=== PATIENT | male | born 1965 | race Caucasian/White ===

== ENCOUNTER 2019-04-17 14:08 | Inpatient (IN) | payer OTHER, SELFPAY ==
[2019-04-17 14:10] VITALS: BMI 26.9
--- NOTE | 2019-04-17 14:25 | ED_ITS ---
HPI - General Adult General: Chief complaint: Weakness Stated complaint: N/V/COUGH/FALL Time Seen by Provider: 04/17/19 14:24 History of Present Illness: HPI narrative: 54-year-old male presents emergency room via EMS with complaint is generally not feeling well he says for the last 4 days he just been laying around he is unable to get up other than to go to the bathroom. He said protracted nausea and vomiting. He does admit he is former heavy drinker but is been over a month since he last drank. He has a low-grade fever and a nonproductive cough as well. Associated symptoms: Reports dyspnea, malaise, nausea and vomiting; Deny chest pain or rash Review of Systems Const: Reports: fever, chills, body aches, fatigue and malaise; Denies: change in appetite ENMT: Reports: nasal discharge and nasal congestion; Denies: throat pain or ear pain Card: Reports: shortness of breath on exertion; Denies: chest pain, edema or shortness of breath when lying down Resp: Reports: shortness of breath and non-productive cough; Denies: productive cough GI: Reports: nausea and vomiting; Denies: abdominal pain, vomiting blood, coffee grounds in vomit, diarrhea, constipation, bloating, blood in stool or black tarry stool : Denies: flank pain, painful urination, urinary frequency or urinary urgency Skin/Breast: Denies: rash or itching PFSH ED PFSH: Statuses (acute, chronic, etc) shown below reflect problem list status as previously entered and may not be historically accurate Medical History Alcohol abuse (Acute) Bronchitis (Acute) Colon polyps (Acute) COPD (chronic obstructive pulmonary disease) (Resolved) Diverticulosis (Acute) Pansinusitis (Acute) Surgical History H/O hernia repair (Acute) H/O right knee surgery (Acute) Family History Other Hyperlipidemia Hypertension Denies family history of Cancer Social History Smoking and tobacco status: current some day smoker smokeless tobacco Alcohol intake: current Alcohol type: beer Alcohol use comment: He is drinking 6-7 beers per week trying to cut down his alcohol intake Desire information about alcohol rehabilitation?: Yes Counseling given: Yes Substance/Drug Use: never Lives independently: Yes Housing: House Physical Exam Const: GENERAL APPEARANCE: cooperative, disheveled and ill appearing ORIENTATION/CONSCIOUSNESS: Yes awake, Yes oriented to person, Yes oriented to place and Yes oriented to time HENMT: COMMON NORMALS: normocephalic, head/scalp atraumatic, hearing grossly normal bilaterally, external ears normal, EAC's normal, TM's normal bilaterally, nasal mucous membranes and turbinates normal, moist oral mucous membranes and oropharynx normal HEAD & SCALP: normocephalic and atraumatic NOSE: nasal mucous membranes and turbinates normal EXTERNAL EAR: Yes external ears normal EXTERNAL AUDITORY CANAL: EAC's normal TYMPANIC MEMBRANE: TM's normal bilaterally Eye: COMMON NORMALS: PERRL, EOMs intact bilaterally, conjunctivae normal and no scleral icterus CONJUNCTIVA: Yes conjunctivae normal PUPIL: Yes PERRL Neck/C-Spine: COMMON NORMALS: full ROM, no lymphadenopathy, supple and no JVD Lymph: LYMPHATIC: no lymphadenopathy noted and no lymphedema noted Resp: COMMON NORMALS: normal respiratory effort, no retractions and no use of accessory muscles AUSCULTATION: rhonchi throughout and wheezes throughout Cardio: COMMON NORMALS: no JVD, regular rate, regular rhythm and no murmurs RATE: regular rate RHYTHM: regular rhythm GI: COMMON NORMALS: soft to palpation and no hepatosplenomegaly AUSCULTATION: Yes normoactive bowel sounds PALPATION: Yes soft, No tender, No guarding and Yes no hepatosplenomegaly Extremity: COMMON NORMALS: normal to inspection, normal capillary refill, no clubbing, cyanosis or edema, no calf tenderness and no pedal edema Neuro: SENSORIUM/ORIENTATION: Yes oriented to person, Yes oriented to place and Yes oriented to time Skin: COMMON NORMALS: no rashes or lesions noted GENERAL SKIN EXAM: no rashes or lesions noted Course ED course: CPK is elevated. Patient does have a mild rhabdomyolysis thinks discomfort from laying around we will go ahead and admit discussed Dr. White. Vital Signs: Vital signs: Vital Signs Temperature 98.7 F 04/18/19 12:00 Pulse Rate 88 04/18/19 22:35 Respiratory Rate 18 04/18/19 22:35 Blood Pressure 100/64 04/18/19 22:35 Pulse Oximetry 96 04/18/19 22:35 MDM - General Adult Lab Data: Labs: Lab Results 04/17/19 04/17/19 04/17/19 Range/Units 14:37 14:37 14:37 WBC 9.6 (4.0-10.0) 10^3/ uL RBC 4.68 (4.1-5.3) 10^6/u L Hgb 15.7 (11.7-16.6) g/dL Hct 44.4 (42.0-52.0) % MCV 94.9 H (80-94) fL MCH 33.5 (28.0-34.0) pg MCHC 35.4 (30.0-36.0) g/dL RDW 12.4 (12.1-15.1) % Plt Count 103 L (130-400) 10^3/c mm MPV 10.9 H (7.4-10.4) fL Neut % (Auto) 88.7 % Lymph % (Auto) 3.0 % [place] % (Auto) 7.1 % Eos % (Auto) 0.0 % Baso % (Auto) 0.2 % Neut # (Auto) 8.5 H (1.8-7.7) 10^3/u L Lymph # (Auto) 0.3 L (0.8-4.8) 10^3/u L [place] # (Auto) 0.7 (0.2-0.9) 10^3/u L Eos # (Auto) 0.0 (0.0-0.8) 10^3/u L Baso # (Auto) 0.0 (0.0-0.1) 10^3/u L Nucleated RBC % (a uto) 0 % Nucleated RBCs # 0.0 /100WBC PT 14.20 H (10.5-13.3) SECO NDS INR 1.06 (0.8-1.2) APTT 28.1 (23.9-36.7) SECO NDS Specimen Type Sample Site ABG pH (7.35-7.45) ABG pCO2 (35-45) mmHg ABG pO2 (80.0-100.0) mmH g ABG HCO3 (22-26) mmol/L ABG Base Excess (-2.0-2.0) mmol/ L Maycol Test Hematocrit (42-52) % Hgb O2 Saturation (95-100) % Carboxyhemoglobin (0.4-20.1) %THgb Methemoglobin (0.4-1.5) % Total Hemoglobin (14-18) g/dL O2 Delivery Device FiO2 % Insurance Application Investigator ID Sodium 131 L (136-145) mmol/L Potassium 3.1 L (3.5-5.1) mmol/L Chloride 78 L (98-107) mmol/L Carbon Dioxide 20 L (22-29) mmol/L Anion Gap 36.1 H (5-19) BUN 26 H (6-20) mg/dL Creatinine 1.8 H (0.7-1.2) mg/dL GFR Calculation 39.2 L (90-130) mL/min Glucose 117 H (74-109) mg/dL Calcium 10.0 (8.6-10.0) mg/Dl Phosphorus (2.5-4.5) mg/dL Magnesium 3.3 H (1.7-2.3) mg/dL Total Bilirubin 4.8 H (0.15-1.2) mg/dL AST 142 H (0-40) U/L ALT 139 H (0-41) U/L Alkaline Phosphata se 99 (40-130) IU/L Ammonia (16-60) umol/L Creatine Kinase 748 H* (39-308) U/L Total Protein 6.9 (6.6-8.7) g/dL Albumin 4.2 (3.5-5.2) g/dL Globulin 2.7 (1.3-4.6) g/dL Urine Color (Yellow) Urine Appearance (CLEAR) Urine pH (5-7) Ur Specific Gravit y (1.005-1.030) Urine Protein (Negative) Urine Glucose (UA) (Normal) Urine Ketones (Negative) Urine Occult Blood (Negative) Urine Nitrate (Negative) Urine Bilirubin (NEGATIVE) Urine Urobilinogen (Negative) mg/dL Ur Leukocyte Kalyn ase (Negative) Urine RBC (0-2) /hpf Urine WBC (0-5) /hpf Ur Squamous Epith Cells (0-5) Urine Bacteria (NONE) Hyaline Casts Fine Granular Cast s /lpf Urine Mucus Ethyl Alcohol < 10 (0-10) mg/dL 04/17/19 04/17/19 04/17/19 Range/Units 14:37 14:48 16:55 WBC (4.0-10.0) 10^3/ uL RBC (4.1-5.3) 10^6/u L Hgb (11.7-16.6) g/dL Hct (42.0-52.0) % MCV (80-94) fL MCH (28.0-34.0) pg MCHC (30.0-36.0) g/dL RDW (12.1-15.1) % Plt Count (130-400) 10^3/c mm MPV (7.4-10.4) fL Neut % (Auto) % Lymph % (Auto) % [place] % (Auto) % Eos % (Auto) % Baso % (Auto) % Neut # (Auto) (1.8-7.7) 10^3/u L Lymph # (Auto) (0.8-4.8) 10^3/u L [place] # (Auto) (0.2-0.9) 10^3/u L Eos # (Auto) (0.0-0.8) 10^3/u L Baso # (Auto) (0.0-0.1) 10^3/u L Nucleated RBC % (a uto) % Nucleated RBCs # /100WBC PT (10.5-13.3) SECO NDS INR (0.8-1.2) APTT (23.9-36.7) SECO NDS Specimen Type Arterial Sample Site Radial, left ABG pH 7.47 H (7.35-7.45) ABG pCO2 26.1 L (35-45) mmHg ABG pO2 75.5 L (80.0-100.0) mmH g ABG HCO3 18.9 L (22-26) mmol/L ABG Base Excess -3.1 L (-2.0-2.0) mmol/ L Maycol Test Pos Hematocrit 47.5 (42-52) % Hgb O2 Saturation 94.0 L (95-100) % Carboxyhemoglobin 0.8 (0.4-20.1) %THgb Methemoglobin 0.2 L (0.4-1.5) % Total Hemoglobin 15.5 (14-18) g/dL O2 Delivery Device Room air FiO2 21.0 % Insurance Application Investigator ID ed Sodium (136-145) mmol/L Potassium (3.5-5.1) mmol/L Chloride (98-107) mmol/L Carbon Dioxide (22-29) mmol/L Anion Gap (5-19) BUN (6-20) mg/dL Creatinine (0.7-1.2) mg/dL GFR Calculation (90-130) mL/min Glucose (74-109) mg/dL Calcium (8.6-10.0) mg/Dl Phosphorus 5.3 H (2.5-4.5) mg/dL Magnesium 3.3 H (1.7-2.3) mg/dL Total Bilirubin (0.15-1.2) mg/dL AST (0-40) U/L ALT (0-41) U/L Alkaline Phosphata se (40-130) IU/L Ammonia (16-60) umol/L Creatine Kinase (39-308) U/L Total Protein (6.6-8.7) g/dL Albumin (3.5-5.2) g/dL Globulin (1.3-4.6) g/dL Urine Color Brown (Yellow) Urine Appearance Sl hazy (CLEAR) Urine pH 5 (5-7) Ur Specific Gravit y 1.020 (1.005-1.030) Urine Protein 2+ H (Negative) Urine Glucose (UA) Norm (Normal) Urine Ketones 2+ H (Negative) Urine Occult Blood 3+ H (Negative) Urine Nitrate Negative (Negative) Urine Bilirubin 1+ H (NEGATIVE) Urine Urobilinogen 4 H (Negative) mg/dL Ur Leukocyte Kalyn ase Negative (Negative) Urine RBC 10-15 H (0-2) /hpf Urine WBC 0-4 H (0-5) /hpf Ur Squamous Epith Cells None (0-5) Urine Bacteria 3+ H (NONE) Hyaline Casts 10-15 H Fine Granular Cast s 0-4 H /lpf Urine Mucus 1+ Ethyl Alcohol (0-10) mg/dL 04/17/19 Range/Units 17:00 WBC (4.0-10.0) 10^3/ uL RBC (4.1-5.3) 10^6/u L Hgb (11.7-16.6) g/dL Hct (42.0-52.0) % MCV (80-94) fL MCH (28.0-34.0) pg MCHC (30.0-36.0) g/dL RDW (12.1-15.1) % Plt Count (130-400) 10^3/c mm MPV (7.4-10.4) fL Neut % (Auto) % Lymph % (Auto) % [place] % (Auto) % Eos % (Auto) % Baso % (Auto) % Neut # (Auto) (1.8-7.7) 10^3/u L Lymph # (Auto) (0.8-4.8) 10^3/u L [place] # (Auto) (0.2-0.9) 10^3/u L Eos # (Auto) (0.0-0.8) 10^3/u L Baso # (Auto) (0.0-0.1) 10^3/u L Nucleated RBC % (a uto) % Nucleated RBCs # /100WBC PT (10.5-13.3) SECO NDS INR (0.8-1.2) APTT (23.9-36.7) SECO NDS Specimen Type Sample Site ABG pH (7.35-7.45) ABG pCO2 (35-45) mmHg ABG pO2 (80.0-100.0) mmH g ABG HCO3 (22-26) mmol/L ABG Base Excess (-2.0-2.0) mmol/ L Maycol Test Hematocrit (42-52) % Hgb O2 Saturation (95-100) % Carboxyhemoglobin (0.4-20.1) %THgb Methemoglobin (0.4-1.5) % Total Hemoglobin (14-18) g/dL O2 Delivery Device FiO2 % Insurance Application Investigator ID Sodium (136-145) mmol/L Potassium (3.5-5.1) mmol/L Chloride (98-107) mmol/L Carbon Dioxide (22-29) mmol/L Anion Gap (5-19) BUN (6-20) mg/dL Creatinine (0.7-1.2) mg/dL GFR Calculation (90-130) mL/min Glucose (74-109) mg/dL Calcium (8.6-10.0) mg/Dl Phosphorus (2.5-4.5) mg/dL Magnesium (1.7-2.3) mg/dL Total Bilirubin (0.15-1.2) mg/dL AST (0-40) U/L ALT (0-41) U/L Alkaline Phosphata se (40-130) IU/L Ammonia 58 (16-60) umol/L Creatine Kinase (39-308) U/L Total Protein (6.6-8.7) g/dL Albumin (3.5-5.2) g/dL Globulin (1.3-4.6) g/dL Urine Color (Yellow) Urine Appearance (CLEAR) Urine pH (5-7) Ur Specific Gravit y (1.005-1.030) Urine Protein (Negative) Urine Glucose (UA) (Normal) Urine Ketones (Negative) Urine Occult Blood (Negative) Urine Nitrate (Negative) Urine Bilirubin (NEGATIVE) Urine Urobilinogen (Negative) mg/dL Ur Leukocyte Kalyn ase (Negative) Urine RBC (0-2) /hpf Urine WBC (0-5) /hpf Ur Squamous Epith Cells (0-5) Urine Bacteria (NONE) Hyaline Casts Fine Granular Cast s /lpf Urine Mucus Ethyl Alcohol (0-10) mg/dL Discharge Plan Discharge Patient Disposition: Placed in Observation Admit Provider: Brian Pearce Clinical Impression: Rhabdomyolysis, Nausea & vomiting Condition: Stable Referrals: Og Bal [Family Provider] - Discharge Date/Time: 04/17/19 20:49 Coding Level of Care Code ED Civil Structural Engineer for Chg Fwd Exam Problem Focused
--- NOTE | 2019-04-17 14:27 | XRR_ITS ---
PROCEDURE INFORMATION: Exam: XR Chest, 1 View Exam date and time: 04/17/2019 2:57 PM Age: 54 years old Clinical indication: Other: Congestion; Additional info: Cough TECHNIQUE: Imaging protocol: XR of the chest Views: 1 view. COMPARISON: CR Chest 1 [place] [id number] 02/02/2019 1:18 PM FINDINGS: Lungs: Unremarkable. No consolidation. Pleural space: Unremarkable. No pleural effusion. No pneumothorax. Heart/Mediastinum: Unremarkable. No cardiomegaly. Bones/joints: Unremarkable. XR/XR chest 1V portable [id number] IMPRESSION: No acute findings.
[2019-04-17 14:28] VITALS: BP 88/75; PULSE 121; RESP 18; TEMP 36.8; O2SAT 98
[2019-04-17] MEDS: sodium chloride 0.9% 1,000 ML 999 ML IV ×2 (14:30→16:30)
[2019-04-17 14:34] VITALS: BP 131/77; PULSE 118; RESP 14; TEMP 36.8; O2SAT 98; BMI 26.9
[2019-04-17 14:50] LABS: Basophils % 0.2 %; Hematocrit 44.4 % (42.0-52.0); Hemoglobin 15.7 g/dL (11.7-16.6); Lymphocytes # 0.3 10^3/uL (0.8-4.8); Mean Corpuscular HGB Conc 35.4 g/dL (30.0-36.0); Mean Corpuscular Hemoglobin 33.5 pg (28.0-34.0); Mean Corpuscular Volume 94.9 fL (80-94); Mean Platelet Volume 10.9 fL (7.4-10.4); Monocytes # 0.7 10^3/uL (0.2-0.9); Monocytes % 7.1 %; Neutrophils # 8.5 10^3/uL (1.8-7.7); Neutrophils % 88.7 %; Nucleated Red Blood Cells % 0 %; Platelet Count 103 10^3/cmm (130-400); Red Blood Count 4.68 10^6/uL (4.1-5.3); Red Cell Distribution Width 12.4 % (12.1-15.1); White Blood Count 9.6 10^3/uL (4.0-10.0)
[2019-04-17 14:59] LABS: ABG PCO2 26.1 mmHg (35-45); ABG PH Result 7.47 (7.35-7.45); Arterial Blood Gas Hematocrit 47.5 % (42-52); Base Excess ABG -3.1 mmol/L (-2.0-2.0); Blood Gas Allen Test Pos; Blood Gas Sample Site Radial, left; Blood Gas Sample Type Arterial; Carboxyhemoglobin 0.8 %THgb (0.4-20.1); HCO3 ABG 18.9 mmol/L (22-26); Methemoglobin 0.2 % (0.4-1.5); Oxygen Device ROOM AIR; PO2 ABG 75.5 mmHg (80.0-100.0); Total Hemoglobin 15.5 g/dL (14-18)
[2019-04-17 15:06] LABS: Alanine Aminotransferase 139 U/L (0-41); Albumin Level 4.2 g/dL (3.5-5.2); Alkaline Phosphatase 99 IU/L (40-130); Anion Gap 36.1 (5-19); Aspartate Amino Transferase 142 U/L (0-40); Blood Urea Nitrogen 26 mg/dL (6-20); Carbon Dioxide 20 mmol/L (22-29); Chloride 78 mmol/L (98-107); Globulin 2.7 g/dL (1.3-4.6); Glomerular Filtration Rate 39.2 mL/min (90-130); Glucose 117 mg/dL (74-109); Magnesium 3.3 mg/dL (1.7-2.3); Potassium 3.1 mmol/L (3.5-5.1); Sodium 131 mmol/L (136-145); Total Bilirubin 4.8 mg/dL (0.15-1.2); Total Protein 6.9 g/dL (6.6-8.7)
[2019-04-17] MEDS: ondansetron 2 mg/ML SDV 2 mL 4 MG IVP (15:14)
[2019-04-17] MEDS: D5-NS 0.45% + KCL 20 mEq 20 MEQ/1,000 ML BAG 150 MEQ IV ×2 (15:15→22:19)
[2019-04-17 15:23] LABS: Alcohol Level < 10 mg/dL (0-10); Creatine Phosphokinase 748 U/L (39-308)
[2019-04-17 17:13] LABS: Blood Urine 3+ (Negative); Glucose Urine UA Norm (Normal); Ketones Urine 2+ (Negative); Nitrate Urine Negative (Negative); Protein Urine 2+ (Negative); Urine Appearance SL Hazy (CLEAR); Urine Color Brown (Yellow); pH Urine 5 (5-7)
[2019-04-17 17:14] LABS: Bilirubin Urine 1+ (NEGATIVE); Urobilinogen Urine 4 mg/dL (Negative)
[2019-04-17 17:16] LABS: Add Urine Microscopic? YES; Leukocyte Esterase Urine Negative (Negative)
[2019-04-17 17:27] LABS: Bacteria Urine 3+; Fine Granular Casts Urine 0-4 /lpf; Mucus Urine 1+; WBC Urine 0-4 /hpf (0-5)
[2019-04-17 17:28] LABS: Add Urine Culture? Yes
[2019-04-17 17:38] LABS: INR 1.06 (0.8-1.2); Partial Thromboplastin Time 28.1 SECONDS (23.9-36.7)
[2019-04-17 17:52] LABS: Ammonia 58 umol/L (16-60)
[2019-04-17 18:48] VITALS: BP 128/63; PULSE 110; RESP 14; TEMP 36.7; O2SAT 98
--- NOTE | 2019-04-17 19:31 | P.HP_ITS ---
Providers/Chief Complaint Chief Complaint: RHABDOMYOIYSIS, PROTRUETED N/V History of Present Illness Tomas Noonan is a 54 year old male who carries diagnosis of alcohol abuse, alcohol withdrawal symptoms in the past ( has never been intubated ) came in with chief complaint of intractable nausea vomiting. Patient is stating that his left about 2 months ago and since then he has been having difficulty managing his meals. He has been trying to cut down his alcohol intake, he is d rinking beer 6 to 7 cans/week now, his last can of beer was on Monday. After having beer on Monday he started having nausea and vomiting he has had more than 10 episodes in last 3 to 4 days is not able to keep anything down, he did not notice any fever, diarrhea, chills, abdominal pain. He is feeling very tired and weak, he was spending most of his day in his bed, he did not even get up to hydrate himself with fluids. He called EMS because he was very tired and unable to take care of himself. He also fell in the bathroom when he tripped over and hit his nose in the bathtub. Diagnostics in ER showed normal hemodynamics, patient has mild tremors, he feels anxious, he had electrolyte abnormality, mildly high CPK, low potassium, thrombocytopenia, alcohol level undetectable Hospital service was requested to admit the patient for above-mentioned reasons Review of Systems Const: Reports: chills, body aches, change in appetite, fatigue and malaise Eyes: Denies: change in vision ENMT: Denies: throat pain Card: Denies: chest pain Resp: Denies: shortness of breath GI: Reports: nausea and vomiting; Denies: abdominal pain, vomiting blood or difficulty swallowing : Denies: flank pain Musc: Denies: neck pain Skin/Breast: Reports: dry skin; Denies: rash Neuro: Reports: seizure-like activity and restless legs; Denies: headache Psych: Reports: anxiety and sleeping more; Denies: memory loss, visual hallucinations, auditory hallucinations or tactile hallucinations Endo: Denies: excessive urination Octavio/Lymph: Denies: easy bruising All/Imm: Denies: hives Medications/Allergies Allergies Allergy/AdvReac Type Severity Reaction Status Date / Time No Known Allergies Allergy Verified 04/17/19 14:14 PFSH Acute PFSH: Statuses (acute, chronic, etc) shown below reflect problem list status as previously entered and may not be historically accurate Medical History (Updated 04/17/19 @ 20:57 by Kaylie Riggins MD) Alcohol abuse (Acute) Bronchitis (Acute) Colon polyps (Acute) COPD (chronic obstructive pulmonary disease) (Acute) Diverticulosis (Acute) Pansinusitis (Acute) Surgical History (Updated 04/17/19 @ 19:32 by Kaylie Riggins MD) H/O hernia repair (Acute) H/O right knee surgery (Acute) Family History (Updated 04/17/19 @ 19:33 by Kaylie Riggins MD) Other Hyperlipidemia Hypertension Denies family history of Cancer Social History (Updated 04/17/19 @ 20:50 by Kaylie Riggins MD) Smoking and tobacco status: current some day smoker Alcohol intake: current Alcohol type: beer Alcohol use comment: He is drinking 6-7 beers per week trying to cut down his alcohol intake Desire information about alcohol rehabilitation?: Yes Counseling given: Yes Substance/Drug Use: never Lives independently: Yes Housing: House Vitals/I&O/Wt Last Vital Signs Temp 98.3 F 04/17/19 14:34 Pulse 118 H 04/17/19 14:34 Resp 14 04/17/19 14:34 BP 131/77 04/17/19 14:34 Pulse Ox 98 04/17/19 14:34 Weight last 48 hrs Weight 95.254 kg Weight 95.254 kg Physical Exam Narrative: EXAM NARRATIVE: Young male with unkempt appearance with poor hygiene Hyperemic conjunctiva-with injections bilaterally EOMI, PERRLA Atraumatic normocephalic S1, S2 no signs of murmur heart failure Abdomen soft nontender nondistended bowel sounds present Neurologically he seems very anxious, nonfocal exam, tremors positive, Lungs are clear to auscultation Poor hygiene on skin examination Dehydrated with dry mucous membranes No signs of ischemia gangrene or ulcer on extremities Anxious mood with flat affect Data : 04/17/19 14:37 04/17/19 14:37 A&P Assessment and plan (1) Alcohol abuse: Status: Acute Code(s): F10.10 - Alcohol abuse, uncomplicated (2) Rhabdomyolysis: Status: Acute Code(s): M62.82 - Rhabdomyolysis (3) Nausea & vomiting: Status: Acute Code(s): R11.2 - Nausea with vomiting, unspecified (4) Thrombocytopenia: Status: Acute Code(s): D69.6 - Thrombocytopenia, unspecified (5) Gastritis due to alcohol without hemorrhage: Status: Acute Code(s): K29.20 - Alcoholic gastritis without bleeding Additional A&P Information Intractable nausea vomiting secondary to alcohol induced gastritis He is drinking 6-7 beers a week, currently alcohol level undetectable, he has mild coarse tremors on physical exam He has had alcohol withdrawal symptoms in the past Currently I would start him on CIWA protocol He is a risk of refeeding syndrome We will check magnesium and phosphorus level Continue D5 half-normal saline with potassium supplementation GI cocktail and Protonix Alcohol induced thrombocytopenia Monitor platelet level for now, no active signs of bleeding Mild rhabdomyolysis, I am suspecting myopathy secondary to alcohol intake, will monitor CPK level, currently on IV fluids, Acute kidney injury secondary to dehydration: Anticipating improvement with IV fluid resuscitation Respiratory alkalosis with mild metabolic acidosis Compensated for now Patient will be high risk for intubation because of risk of DTs Poor p.o. intake with inability to care for himself: I am suspecting he is suffering from depression would add escitalopram DVT prophylaxis: Heparin GI prophylaxis: Protonix Full code Attestations Medical Necessity Statement*: Anticipating stay in the hospital more than 2 days currently he is in mild alcohol withdrawal has severe electrolyte abn ormality, TALHA and rhabdomyolysis, Time Spent in Patient Care: (>than 50% of time spent in counselling and/or direct pt care on unit) . 50 Coding Level of Care Code Acute Copy Preparer for Caleb Zhong Diagnoses Alcohol abuse F10.10 Rhabdomyolysis M62.82 Nausea & vomiting R11.2 Thrombocytopenia D69.6 Gastritis due to alcohol without hemorrhage K29.20
[2019-04-17 20:47] VITALS: BP 134/63; PULSE 92; RESP 18; TEMP 36.8; O2SAT 98
[2019-04-17 21:30] LABS: Magnesium 3.3 mg/dL (1.7-2.3); Phosphorus 5.3 mg/dL (2.5-4.5)
[2019-04-17] MEDS: heparin 5,000 unit/mL INJ 1 mL 5000 UNIT SUBCUT (22:17)
[2019-04-17 22:19] LABS: Glucose Point of Care 117 mg/dL (70-110)
[2019-04-17] MEDS: LORazepam 2 mg Tablet PO (22:27)
[2019-04-18] VITALS (63 sets, daily range): BP systolic 76–126; BP diastolic 56–80; PULSE 80–105; RESP 15–22; TEMP 36.8–37.1; O2SAT 86–98
[2019-04-18] MEDS: LORazepam 2 mg Tablet PO (05:20)
[2019-04-18] MEDS: heparin 5,000 unit/mL INJ 1 mL 5000 UNIT SUBCUT ×2 (05:20→12:18)
[2019-04-18 06:00] LABS: Basophils % 0.1 %; Eosinophils # 0.1 10^3/uL (0.0-0.8); Eosinophils % 1.8 %; Hematocrit 36.8 % (42.0-52.0); Hemoglobin 13.4 g/dL (11.7-16.6); Mean Corpuscular HGB Conc 36.4 g/dL (30.0-36.0); Mean Corpuscular Hemoglobin 33.2 pg (28.0-34.0); Mean Corpuscular Volume 91.1 fL (80-94); Monocytes # 0.8 10^3/uL (0.2-0.9); Monocytes % 11.2 %; Neutrophils # 4.8 10^3/uL (1.8-7.7); Neutrophils % 70.9 %; Nucleated Red Blood Cells % 0 %; Platelet Count 96 10^3/cmm (130-400); Red Blood Count 4.04 10^6/uL (4.1-5.3); White Blood Count 6.7 10^3/uL (4.0-10.0)
[2019-04-18 06:21] LABS: Alanine Aminotransferase 116 U/L (0-41); Alkaline Phosphatase 86 IU/L (40-130); Anion Gap 20.2 (5-19); Aspartate Amino Transferase 143 U/L (0-40); Blood Urea Nitrogen 31 mg/dL (6-20); Calcium 9.5 mg/Dl (8.6-10.0); Carbon Dioxide 27 mmol/L (22-29); Chloride 81 mmol/L (98-107); Globulin 2.8 g/dL (1.3-4.6); Glomerular Filtration Rate 57.1 mL/min (90-130); Glucose 112 mg/dL (74-109); Potassium 3.2 mmol/L (3.5-5.1); Sodium 125 mmol/L (136-145); Total Bilirubin 3.1 mg/dL (0.15-1.2); Total Protein 6.8 g/dL (6.6-8.7)
[2019-04-18 06:23] LABS: Creatine Phosphokinase 1245 U/L (39-308)
[2019-04-18 07:01] LABS: Glucose Point of Care 117 mg/dL (70-110)
[2019-04-18] MEDS: LORazepam 2 mg/mL INJ 1 mL 1 MG IVP (08:15)
[2019-04-18] MEDS: escitalopram 10 mg Tablet 20 MG PO (08:15)
[2019-04-18] MEDS: thiamine 100 mg Tablet PO (08:15)
[2019-04-18] MEDS: chlordiazePOXIDE 25 mg Capsule PO (08:15)
[2019-04-18] MEDS: folic acid 1 mg Tablet PO (08:15)
[2019-04-18] MEDS: multivitamin therapeutic Tablet 1 TAB PO (08:15)
[2019-04-18] MEDS: pantoprazole DR 40 mg Tablet PO (08:15)
[2019-04-18] MEDS: sodium chlor 0.9% + KCl 20 mEq 20 MEQ/1,000 ML BAG 150 MEQ IV ×3 (08:17→20:58)
--- NOTE | 2019-04-18 08:42 | PC.NURSE ---
patient confused, hallucinating saying russians are taking our money and that there is money hidden in the table patient was reoriented, he was able to tell me who he was and that the month was march. he is very anxious and has received a prn dose of ativan, Dr. Pearce notified of behaviors, patient placed on one-to-one observation. bed rails padded for seizure precautions and suction equipment available and working properly at this time. Soheila AGUIAR in room with patient
--- NOTE | 2019-04-18 08:52 | PM.PN ---
Subjective Subjective: Interval history: Patient overnight has received 2 mg of oral and 2 mg of IM Ativan. On examination today morning patient seems to be having visual hallucinations, complains of generalized headaches, tremulous complains of nausea but no vomiting complains of dizziness cold sweats. Denies of having any abdominal pain, palpitations. Medications: Medication Review Details: Med rec still needs to be done. Vitals/I&O/Wt Last Vital Signs Temp 98.5 F 04/18/19 07:38 Pulse 100 04/18/19 07:38 Resp 18 04/18/19 07:38 BP 105/71 04/18/19 07:38 Pulse Ox 92 04/18/19 07:38 04/17/19 04/18/19 04/18/19 22:59 06:59 14:59 Intake Total 1240 / 1240 240 / 1480 240 / 240 Output Total 350 / 350 Balance 1240 / 1240 -110 / 1130 240 / 240 Weight last 48 hrs Weight 95.254 kg Weight 95.254 kg Physical Exam Narrative: EXAM NARRATIVE: General: No acute distress, AO x3, tremulous, occasional visual hallucinations HEENT: PERRLA, pupils bilaterally equal and reactive, mildly dilated Chest: Normal vesicular breath sounds, no added sounds, equal good air entry bilaterally CVS: S1-S2 regular, tachycardia, no murmurs, no gallops, no rubs Abdomen: Soft, nontender, no organomegaly, bowel sounds present Neuro: No focal deficits, no facial deformity, AO x3, power 5/5 in all limbs CIWA: More than 15 Data : 04/18/19 05:50 04/18/19 05:50 A&P Assessment and plan (1) Alcohol withdrawal: Status: Acute Code(s): F10.239 - Alcohol dependence with withdrawal, unspecified (2) Rhabdomyolysis: Status: Acute Code(s): M62.82 - Rhabdomyolysis (3) Gastritis due to alcohol without hemorrhage: Status: Acute Code(s): K29.20 - Alcoholic gastritis without bleeding (4) Nausea & vomiting: Status: Acute Code(s): R11.2 - Nausea with vomiting, unspecified (5) Thrombocytopenia: Status: Acute Code(s): D69.6 - Thrombocytopenia, unspecified (6) COPD (chronic obstructive pulmonary disease): Status: Acute Code(s): J44.9 - Chronic obstructive pulmonary disease, unspecified Additional A&P Information Alcohol withdrawal: States he had last drink 4 days ago. Alcohol level on admission is normal. Patient is in alcohol withdrawal right now with CIWA of more than 15. We will change the oral and IM Ativan to 2 mg IV every 2 hours as needed. Most likely will shift patient to the ICU for Precedex drip. Check drug screen on the urine sample from admission. We will check hepatitis panel and HIV given the deranged liver functions. Continue with oral thiamine and folic acid. Sitter at bedside. Intractable nausea vomiting: Most likely secondary to alcohol induced gastritis but will rule out gallbladder pathology given the deranged liver functions. As said above will check hepatitis panel. IV Protonix 40 mg daily. Zofran as needed. CT abdomen without contrast. Continue liquid diet for now. Magnesium and phosphorus levels reviewed for high risk of refeeding syndrome. Rhabdomyolysis: Patient does have bruise on the right side of his chest and shoulder. Complains of generalized myalgias Most likely from alcohol induced tremors and myopathy. We will continue to monitor CPK levels. Continue with normal saline at 150 cc/h. Acute kidney injury: Baseline creatinine seems to be normal. Creatinine on admission 1.8. 1.3 today. Resolving. Most likely from dehydration due to poor oral intake and intractable vomiting. Medications reviewed for nephrotoxic drugs. Continue with IV fluids. Will monitor BMP daily. Alcohol induced thrombocytopenia Monitor platelet level for now, no active signs of bleeding. Hemoglobin seems to be stable. COPD: On examination does have bilateral rhonchi's. Most likely possible aspiration as well. Patient remains afebrile and white count is normal and chest x-ray negative for any infiltrate so will hold off on starting any antibiotics for now. We will start patient on [id number] duo nebs and budesonide twice daily. Depression: Patient started on Lexapro last night. Given that the patient would be on Precedex now will monitor for any change in mentation. Continue on Lexapro for now. Has multiple injuries on the shoulder and chest. Chest x-ray negative for any rib fracture. Complaining of pain in his shoulder will get shoulder x-ray to rule out any fractures or acute injuries. DVT prophylaxis: Heparin GI prophylaxis: Protonix Full code Transfer to ICU for Precedex drip in view of high CIWA score. Attestations Medical Necessity Statement*: Needs controlled hospitalization for management of alcohol withdrawal Time Spent in Patient Care: Greater than 35 minutes Coding Level of Care Code Acute Fourdrinier Machine Operator for Chg Fwd Diagnoses Alcohol withdrawal F10.239 Rhabdomyolysis M62.82 Gastritis due to alcohol without hemorrhage K29.20 Nausea & vomiting R11.2 Thrombocytopenia D69.6 COPD (chronic obstructive pulmonary disease) J44.9
[2019-04-18 11:09] LABS: Glucose Point of Care 100 mg/dL (70-110)
[2019-04-18] MEDS: LORazepam 2 mg/mL INJ 1 mL IVP ×4 (11:11→22:15)
--- NOTE | 2019-04-18 11:14 | XRR_ITS ---
PROCEDURE INFORMATION: Exam: XR Right Shoulder Exam date and time: 04/18/2019 12:00 PM Age: 54 years old Clinical indication: Injury or trauma; Fall; Initial encounter; Blunt trauma (contusions or hematomas; Shoulder; Right; Injury date: Today; Additional info: Post fall TECHNIQUE: Imaging protocol: XR Right shoulder. Views: 1 view. COMPARISON: MRI Shoulder w/o RIGHT* [id number] 02/18/2019 12:23 PM FINDINGS: Bones/joints: No acute bony injury or malalignment in the visualized right shoulder on the single view obtained. Degenerative change. Soft tissues: Rotator cuff repair. XR/XR shoulder RT 1V [id number] IMPRESSION: No acute bony injury or malalignment in the visualized right shoulder on the single view obtained.
--- NOTE | 2019-04-18 12:00 | PC.CHAP ---
Pastoral Care Encounter/Spiritual Assessment Type of Contact [] Declined instructor of spanish visit [] Patient/Family/Request visit [] Outpatient visit [] Follow-up visit [] Physician referral [] Code/Alert [x] Routine visit [] Staff referral [] Actively dying [] Patient sleeping [] Family support [] [] Out of room [] Palliative care [] [] Receiving care in room [] Pre-surgical visit [] Trauma [] Long length of stay [] ICU visit [] Other: Relational/Emotional Strength [] Patient feels connected with others/family/visitors/staff [] Distress [] Loneliness/isolation [] Abandonment Spirituality of Patient [] Person of Dalila [] Attends Congregational of their Dalila [] Believes in Prayer [] Reads Bible or Jehovah'S Witness materials [] There are Spiritual issues to be addressed Security Developer Interventions [] Prayer [] Active listening [] Non-anxious presence [] Spiritual/emotional support [] Crisis/trauma care [] Spiritual counseling [] Bereavement support [] Provided bereavement packet [] Provided Bible/devotional materials [] Provided toy/stuffed animal, coloring book to patient or family member [] Completed spiritual assessment [] Provided Communion [] Anointing/[place] [] Salvation [] Other: Impact on Illness or Injury [] Angry [] Fearful [] Anxious [] Often cries [] Exhaustion [] Unable to work [] Unable to attend gnosticist [] Unable to walk/stand [] Unable to read [] Unable to drive [] Unable to eat/drink [] Unable to sleep [] Unable to be with family [] Other: Summary patient very confused chapllan understand patient going to icu Time spent with patient
--- NOTE | 2019-04-18 13:29 | PC.NURSE ---
report called to stepan yates
--- NOTE | 2019-04-18 15:27 | CTR_ITS ---
PROCEDURE INFORMATION: Exam: CT Abdomen And Pelvis Without Contrast Exam date and time: 04/18/2019 5:31 PM Age: 54 years old Clinical indication: Vomiting; Additional info: Intractable vomiting to R/O gall bladder patho, kidney stones TECHNIQUE: Imaging protocol: Computed tomography of the abdomen and pelvis without contrast. Total DLP: 1827.65 mGy-cm Radiation optimization: All CT scans at this facility use at least one of these dose optimization techniques: automated exposure control; mA and/or kV adjustment per patient size (includes targeted exams where dose is matched to clinical indication); or iterative reconstruction. COMPARISON: No relevant prior studies available. FINDINGS: Lungs: There is subpleural atelectasis of the dependent portions of the lungs. Mediastinum: A large hiatal hernia is present. Liver: There is a diffuse decrease in hepatic parenchymal density, consistent with fatty infiltration. Gallbladder and bile ducts: Normal. No calcified stones. No ductal dilation. Pancreas: Normal. No ductal dilation. Spleen: Normal. No splenomegaly. Adrenals: Normal. No mass. Kidneys and ureters: There is no evidence of hydronephrosis. There is no evidence of renal calcifications. Stomach and bowel: Unremarkable. No obstruction. No mucosal thickening. Appendix: A normal appendix is identified. Intraperitoneal space: Unremarkable. No free air. No significant fluid collection. Vasculature: Unremarkable.No abdominal aortic aneurysm. Lymph nodes: Unremarkable.No enlarged lymph nodes. Bladder: Unremarkable as visualized. Reproductive: The prostate demonstrates mild nonspecific enlargement. The seminal vesicles are normal. The prostate demonstrates nonspecific parenchymal calcifications. Bones/joints: Unremarkable. No acute fracture. Soft tissues: Small fat filled inguinal hernias are noted. There is nonspecific edema along the left buttock/flank that may reflect a soft tissue contusion but there is no hematoma. There is edema of the subcutaneous fat right lower abdominal wall with a few air bubbles suspected to be from subcutaneous injections. CT/CT abdomen pelvis wo con [id number] IMPRESSION: No acute abnormality or inflammatory changes. Incidental findings are noted as above. Radiation Dose CTDIVOL = (mGy): DLP = 1827.65 (mGy-cm)
--- NOTE | 2019-04-18 15:47 | PC.NURSE ---
A person named Rosmery, called to ICU inquiring about pt. SHe stated she was just a friend/or just go ask him what I am to him . Pt unable to communicate at this time. I informed Rosmery that he couldn't answer that at this time. She replied she was taking care of his dogs and she just wanted to know what was going on. I stated due to HIPPA, as she was not family/legally / family I could not say anything further other than please continue to care for his dogs if you can. She stated she would continue to care for his dogs and she w going to go stay at his house.
--- NOTE | 2019-04-18 16:19 | CTR_ITS ---
PROCEDURE INFORMATION: Exam: CT Head Without Contrast Exam date and time: 04/18/2019 5:31 PM Age: 54 years old Clinical indication: Altered mental status/memory loss; Additional info: AMS R/O bleed TECHNIQUE: Imaging protocol: Computed tomography of the head without contrast. Total DLP: 906.13 mGy-cm Radiation optimization: All CT scans at this facility use at least one of these dose optimization techniques: automated exposure control; mA and/or kV adjustment per patient size (includes targeted exams where dose is matched to clinical indication); or iterative reconstruction. COMPARISON: No relevant prior studies available. FINDINGS: Brain: There is a large rounded area of hyperdensity on image 21. This is concerning for large aneurysm measuring 1.5 by 1.2 cm in size near the origin of the right middle cerebral artery. The margins of this aneurysm are fuzzy or ill-defined concerning for early adjacent subarachnoid hemorrhage. No additional aneurysm. No midline shift. No edema or mass effect. There is mild diffuse volume loss. The ventricular size is appropriate. Ventricles: No hydrocephalus. Bones/joints: Unremarkable. No acute fracture. Sinuses: There is mild mucosal thickening in the sinuses. Mastoid air cells: Visualized mastoid air cells are well aerated. Soft tissues: Unremarkable. 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 MRI/MRA is recommended for further evaluation. Radiation Dose CTDIVOL = (mGy): DLP = 906.13 (mGy-cm)
[2019-04-18 16:22] LABS: Anion Gap 17.2 (5-19); Blood Urea Nitrogen 24 mg/dL (6-20); Calcium 8.8 mg/dL (8.5-10.5); Carbon Dioxide 26 mmol/L (22-29); Chloride 86 mmol/L (98-107); Glomerular Filtration Rate 77.3 mL/min (90-130); Glucose 103 mg/dL (74-109); Osmolality Calculated 259 mOsm/kg (285-295); Potassium 3.2 mmol/L (3.5-5.1); Sodium 126 mmol/L (136-145)
[2019-04-18 16:26] LABS: Creatine Phosphokinase 1380 U/L (39-308)
[2019-04-18] MEDS: ipratropium-albuterol 3 mL Neb INHALATION ×2 (16:53→20:29)
[2019-04-18 17:48] LABS: Prolactin 18.17 ng/mL (4.0-15.2)
[2019-04-18 18:25] LABS: Hepatitis A Antibody IgM. Non-Reactive (Nonreactive); Hepatitis B Core IgM Non-Reactive (Nonreactive); Hepatitis B Surface Antigen. Non-Reactive (Nonreactive); Hepatitis C Virus Antibody Non-Reactive (Nonreactive)
[2019-04-18 18:31] LABS: ABG PCO2 38.3 mmHg (35-45); ABG PH Result 7.45 (7.35-7.45); Arterial Blood Gas Hematocrit 35.2 % (42-52); Base Excess ABG 2.8 mmol/L (-2.0-2.0); Blood Gas Allen Test Pos; Blood Gas Sample Site Radial, right; Blood Gas Sample Type Arterial; HCO3 ABG 26.8 mmol/L (22-26); Oxygen Device ROOM AIR; PO2 ABG 67.2 mmHg (80.0-100.0)
--- NOTE | 2019-04-18 18:50 | PC.NURSE ---
Down to CT by bed and laboratory monitor.
--- NOTE | 2019-04-18 19:15 | PC.NURSE ---
Back to unit from CT at this time.
--- NOTE | 2019-04-18 20:22 | PM.TDS ---
Transfer Summary Providers Date of Admission: 04/17/19 21:00 Date of Discharge: 04/18/19 Attending Provider at Admission: Brian Pearce MD Attending Provider at Transfer: Brian Pearce MD Anticipated Date of Transfer: Anticipated date of transfer: 04/18/19 Receiving Facility & Provider: Receiving Provider: [] Receiving facility: [] Diagnoses at Discharge Discharge Diagnosis (1) Middle cerebral artery aneurysm: Status: Acute (2) Alcohol withdrawal: Status: Acute (3) Rhabdomyolysis: Status: Acute (4) Gastritis due to alcohol without hemorrhage: Status: Acute (5) Nausea & vomiting: Status: Acute (6) Thrombocytopenia: Status: Acute (7) COPD (chronic obstructive pulmonary disease): Status: Acute Reason for Visit Reason for Visit: Reason For Visit: RHABDOMYOIYSIS, PROTRUETED N/V Hospital Course Hospital Course: This is a 54-year-old male who came to the emergency department after intractable nausea and vomiting for last 3 to 4 days, he lives alone, he drinks beer 5 to 6 cans/week he is trying to cut down his alcohol intake he used to be a heavy drinker in the past he has a history of alcohol withdrawal symptoms with seizures, he denies any history of RI, stroke, pulmonary embolism or DVT. His last alcoholic drink was on Monday and after that he started having nausea and vomiting, he was feeling very weak lethargic and irritable and was not able to get out of bed to go to the kitchen and hydrate himself or eat properly. He called EMS who brought him to ER for further evaluation. He was admitted to medical floor with [facility] protocol with presumptive diagnosis of alcohol-induced gastritis. Discharge Summary: Patient was admitted for management of alcohol withdrawal symptoms and alcohol induced gastritis, at the time of admission his GCS was 15 he was coherent, he had mild coarse tremors on physical exam and he was admitted to medical floor. When he was evaluated in the morning by day team he was confused was experiencing visual hallucination, he was not able to extend his right arm, hence head CT without contrast was obtained which showed large right middle cerebral artery aneurysm 1.5 cm x 1.2 cm with hyperdense area with concerning findings for subarachnoid hemorrhage or early rupture. I have contacted [facility], did not have a neurosurgeon nutrition intern who could do vascular intervention. I called [facility], and was able to get in touch with Dr. Beckwith right away who accepted the patient to neuro ICU and recommended nimodipine 60 mg, Keppra 1 g, Tranxene Jennifer acid 1 g. I am holding nimodipine for now because his systolic blood pressure is 90/60MMHG, target blood pressure less than 110 mmHg. Physical Exam Narrative: EXAM NARRATIVE: Patient laying in bed with semi-armenta position Blood pressure 96/60, heart rate 80 sinus rhythm, Respiratory rate 16 Temperature 98.7 Patient seems very drowsy with irritable behavior, he is try to get out of bed, is able to follow my commands his GCS at the moment is 13, E3 V4 M6 No cerebellar signs His pupils are reactive to light and they are equal No uvula deviation, no tongue deviation, reflexes equivocal Is able to hold his legs in the air for 5 seconds without any difficulty His heart sounds are regular S1-S2 without any murmur JVD or signs of heart failure Abdomen soft nontender nondistended bowel sounds present Lungs are clear to auscultation with rhonchi bilaterally Skin exam shows multiple bruises and petechiae, right shoulder bruise, multiple bruises at the wiley bilaterally TS Data Data Completed and Pending: Completed Studies During Hospitalization Category Date Time Status CT abdomen pelvis wo con [id number] Rout ine Cat Scan 04/18/19 15:[address] head wo con* 7 0450 Routine Cat Scan 04/18/19 16:19 Completed XR chest 1V perla ble [id number] Urgent Exams 04/17/19 14:27 Completed XR shoulder RT 1V 17220 Routine Exams 04/18/19 11:14 Completed Pending at discharge Category Date Time Status EEG electroenceph alogram Routine Exams 04/18/19 16:32 Ordered Arterial Blood Ga s W/O Coox Routine Lab 04/18/19 20:03 Ordered Complete Blood Co unt w/Auto AM LABS Lab 04/19/19 04:00 Ordered Comprehensive Met abolic Panel AM LA BS Lab 04/19/19 04:00 Ordered Drug Screen, Urin e Routine Lab 04/18/19 15:15 Uncollected HIV 1&2 Antigen & Antibody Routine Lab 04/18/19 15:43 Received Myoglobin Qualita tive Urine Stat Lab 04/17/19 16:55 Received Urine Culture Sta t Lab 04/17/19 16:55 Received MR angio head wo con [id number] Stat MRI 04/18/19 19:38 Ordered Labs from last 24 hours 04/18/19 04/18/19 04/18/19 18:10 15:43 15:43 WBC RBC Hgb Hct MCV MCH MCHC RDW Plt Count MPV Neut % (Auto) Lymph % (Auto) [place] % (Auto) Eos % (Auto) Baso % (Auto) Neut # (Auto) Lymph # (Auto) [place] # (Auto) Eos # (Auto) Baso # (Auto) Nucleated RBC % (a uto) Nucleated RBCs # Specimen Type Arterial Sample Site Radial, right ABG pH 7.45 ABG pCO2 38.3 ABG pO2 67.2 L ABG HCO3 26.8 H ABG Base Excess 2.8 H Maycol Test Pos Hematocrit 35.2 L O2 Delivery Device Room air Hot Die Press Feeder ID gd Sodium 126 L Potassium 3.2 L Chloride 86 L Carbon Dioxide 26 Anion Gap 17.2 BUN 24 H Creatinine 1.0 GFR Calculation 77.3 L Glucose 103 POC Glucose Calculated Osmolal ity 259 L Calcium 8.8 Phosphorus Magnesium Total Bilirubin AST ALT Alkaline Phosphata se Creatine Kinase 1380 H* Total Protein Albumin Globulin Prolactin 18.17 H Hepatitis A IgM Ab Hep Bs Antigen Hep B Core IgM Ab Hepatitis C Antibo dy 04/18/19 04/18/19 04/18/19 15:43 11:00 06:50 WBC RBC Hgb Hct MCV MCH MCHC RDW Plt Count MPV Neut % (Auto) Lymph % (Auto) [place] % (Auto) Eos % (Auto) Baso % (Auto) Neut # (Auto) Lymph # (Auto) [place] # (Auto) Eos # (Auto) Baso # (Auto) Nucleated RBC % (a uto) Nucleated RBCs # Specimen Type Sample Site ABG pH ABG pCO2 ABG pO2 ABG HCO3 ABG Base Excess Maycol Test Hematocrit O2 Delivery Device Hot Die Press Feeder ID Sodium Potassium Chloride Carbon Dioxide Anion Gap BUN Creatinine GFR Calculation Glucose POC Glucose 100 117 Calculated Osmolal ity Calcium Phosphorus Magnesium Total Bilirubin AST ALT Alkaline Phosphata se Creatine Kinase Total Protein Albumin Globulin Prolactin Hepatitis A IgM Ab Non-reactive Hep Bs Antigen Non-reactive Hep B Core IgM Ab Non-reactive Hepatitis C Antibo dy Non-reactive 04/18/19 04/18/19 04/17/19 05:50 05:50 22:14 WBC 6.7 RBC 4.04 L Hgb 13.4 Hct 36.8 L MCV 91.1 MCH 33.2 MCHC 36.4 H RDW 12.0 L Plt Count 96 L MPV 11.0 H Neut % (Auto) 70.9 Lymph % (Auto) 15.0 [place] % (Auto) 11.2 Eos % (Auto) 1.8 Baso % (Auto) 0.1 Neut # (Auto) 4.8 Lymph # (Auto) 1.0 [place] # (Auto) 0.8 Eos # (Auto) 0.1 Baso # (Auto) 0.0 Nucleated RBC % (a uto) 0 Nucleated RBCs # 0.0 Specimen Type Sample Site ABG pH ABG pCO2 ABG pO2 ABG HCO3 ABG Base Excess Maycol Test Hematocrit O2 Delivery Device Hot Die Press Feeder ID Sodium 125 L Potassium 3.2 L Chloride 81 L Carbon Dioxide 27 Anion Gap 20.2 H BUN 31 H Creatinine 1.3 H GFR Calculation 57.1 L Glucose 112 H POC Glucose 117 Calculated Osmolal ity Calcium 9.5 Phosphorus Magnesium Total Bilirubin 3.1 H AST 143 H ALT 116 H Alkaline Phosphata se 86 Creatine Kinase 1245 H* Total Protein 6.8 Albumin 4.0 Globulin 2.8 Prolactin Hepatitis A IgM Ab Hep Bs Antigen Hep B Core IgM Ab Hepatitis C Antibo dy 04/17/19 14:37 WBC RBC Hgb Hct MCV MCH MCHC RDW Plt Count MPV Neut % (Auto) Lymph % (Auto) [place] % (Auto) Eos % (Auto) Baso % (Auto) Neut # (Auto) Lymph # (Auto) [place] # (Auto) Eos # (Auto) Baso # (Auto) Nucleated RBC % (a uto) Nucleated RBCs # Specimen Type Sample Site ABG pH ABG pCO2 ABG pO2 ABG HCO3 ABG Base Excess Maycol Test Hematocrit O2 Delivery Device Hot Die Press Feeder ID Sodium Potassium Chloride Carbon Dioxide Anion Gap BUN Creatinine GFR Calculation Glucose POC Glucose Calculated Osmolal ity Calcium Phosphorus 5.3 H Magnesium 3.3 H Total Bilirubin AST ALT Alkaline Phosphata se Creatine Kinase Total Protein Albumin Globulin Prolactin Hepatitis A IgM Ab Hep Bs Antigen Hep B Core IgM Ab Hepatitis C Antibo dy Addt'l Data from Hospital Stay: [address] [address] [address] Scan Report Signed with Addenda Patient: Tomas Noonan CUnit #: [id number] : 1965Acct#:[id number] Age/Sex: 54 / MADM Date: 04/17/19 Loc: [facility]/Bed: [place] [address]: Brian Pearce MD Ordering Provider/Ordering MD: Brian Pearce MD Date of Service: 04/18/19 Procedure(s): CT head wo con* [id number] Accession Number(s): [id number] Report Number: [id number]/CT head wo con* [id number] THIS REPORT CONTAINS FINDINGS THAT MAY BE CRITICAL TO PATIENT CARE. The findings were verbally communicated via telephone conference with Dr Chauhan at 7:18 PM CLINICAL APPLICATIONS MANAGER on 04/18/2019. The findings were acknowledged and understood. Radiation Dose CTDIVOL = (mGy): DLP = 906.13 (mGy-cm) Addendum Dictated By: Zabrina Echevarria Addendum Signed By: Kiley Echevarria Date/Time:04/18/191920 Addendum Cosigned By: PROCEDURE INFORMATION: Exam: CT Head Without Contrast Exam date and time: 04/18/2019 5:31 PM Age: 54 years old Clinical indication: Altered mental status/memory loss; Additional info: AMS R/O bleed TECHNIQUE: Imaging protocol: Computed tomography of the head without contrast. Total DLP: 906.13 mGy-cm Radiation optimization: All CT scans at this facility use at least one of these dose optimization techniques: automated exposure control; mA and/or kV adjustment per patient size (includes targeted exams where dose is matched to clinical indication); or iterative reconstruction. COMPARISON: No relevant prior studies available. FINDINGS: Brain: There is a large rounded area of hyperdensity on image 21. This is concerning for large aneurysm measuring 1.5 by 1.2 cm in size near the origin of the right middle cerebral artery. The margins of this aneurysm are fuzzy or ill-defined concerning for early adjacent subarachnoid hemorrhage. No additional aneurysm. No midline shift. No edema or mass effect. There is mild diffuse volume loss. The ventricular size is appropriate. Ventricles: No hydrocephalus. Bones/joints: Unremarkable. No acute fracture. Sinuses: There is mild mucosal thickening in the sinuses. Mastoid air cells: Visualized mastoid air cells are well aerated. Soft tissues: Unremarkable. CT/CT head wo con* [id number] IMPRESSION: Rounded hyperdensity in the right lower middle cranial fossa concerning for large aneurysm with ill-defined borders concerning for early rupture and subarachnoid hemorrhage. MRI/MRA [place] [address] XRay Report Signed Patient: Tomas Noonan #: [id number] : 1965Acct#:[id number] Age/Sex: 54 / MADM Date: 04/17/19 Loc: [facility]/Bed: [facility] Attending Dr: Brian Pearce MD Ordering Provider/Ordering MD: Brian Pearce MD Date of Service: 04/18/19 Procedure(s): XR shoulder RT 1V 25047 Accession Number(s): [id number] Report Number: [id number] PROCEDURE INFORMATION: Exam: XR Right Shoulder Exam date and time: 04/18/2019 12:00 PM Age: 54 years old Clinical indication: Injury or trauma; Fall; Initial encounter; Blunt trauma (contusions or hematomas; Shoulder; Right; Injury date: Today; Additional info: Post fall TECHNIQUE: Imaging protocol: XR Right shoulder. Views: 1 view. COMPARISON: MRI Shoulder w/o RIGHT* [id number] 02/18/2019 12:23 PM FINDINGS: Bones/joints: No acute bony injury or malalignment in the visualized right shoulder on the single view obtained. Degenerative change. Soft tissues: Rotator cuff repair. XR/XR shoulder RT 1V 19896 IMPRESSION: No acute bony injury or malalignment in the visualized right shoulder on the single view obtained. [address] [address] [address] Scan Report Signed Patient: Tomas Noonan #: [id number] : 1965Acct#:[id number] Age/Sex: 54 / MADM Date: 04/17/19 Loc: [facility]/Bed: [place] [address]: Brian Pearce MD Ordering Provider/Ordering MD: Brian Pearce MD Date of Service: 04/18/19 Procedure(s): CT abdomen pelvis wo con [id number] Accession Number(s): [id number] Report Number: [id number] PROCEDURE INFORMATION: Exam: CT Abdomen And Pelvis Without Contrast Exam date and time: 04/18/2019 5:31 PM Age: 54 years old Clinical indication: Vomiting; Additional info: Intractable vomiting to R/O gall bladder patho, kidney stones TECHNIQUE: Imaging protocol: Computed tomography of the abdomen and pelvis without contrast. Total DLP: 1827.65 mGy-cm Radiation optimization: All CT scans at this facility use at least one of these dose optimization techniques: automated exposure control; mA and/or kV adjustment per patient size (includes targeted exams where dose is matched to clinical indication); or iterative reconstruction. COMPARISON: No relevant prior studies available. FINDINGS: Lungs: There is subpleural atelectasis of the dependent portions of the lungs. Mediastinum: A large hiatal hernia is present. Liver: There is a diffuse decrease in hepatic parenchymal density, consistent with fatty infiltration. Gallbladder and bile ducts: Normal. No calcified stones. No ductal dilation. Pancreas: Normal. No ductal dilation. Spleen: Normal. No splenomegaly. Adrenals: Normal. No mass. Kidneys and ureters: There is no evidence of hydronephrosis. There is no evidence of renal calcifications. Stomach and bowel: Unremarkable. No obstruction. No mucosal thickening. Appendix: A normal appendix is identified. Intraperitoneal space: Unremarkable. No free air. No significant fluid collection. Vasculature: Unremarkable.No abdominal aortic aneurysm. Lymph nodes: Unremarkable.No enlarged lymph nodes. Bladder: Unremarkable as visualized. Reproductive: The prostate demonstrates mild nonspecific enlargement. The seminal vesicles are normal. The prostate demonstrates nonspecific parenchymal calcifications. Bones/joints: Unremarkable. No acute fracture. Soft tissues: Small fat filled inguinal hernias are noted. There is nonspecific edema along the left buttock/flank that may reflect a soft tissue contusion but there is no hematoma. There is edema of the subcutaneous fat right lower abdominal wall with a few air bubbles suspected to be from subcutaneous injections. CT/CT abdomen pelvis wo con [id number] IMPRESSION: No acute abnormality or inflammatory changes. Incidental findings are noted as above. Vitals: Last Vital Signs Temp 98.7 F 04/18/19 12:00 Pulse 103 H 04/18/19 18:25 Resp 15 04/18/19 18:25 BP 81/65 04/18/19 18:25 Pulse Ox 92 04/18/19 18:25 TS Medications Medications Home Medications Anti-Depressant 04/17/19 [History] omeprazole 20 mg PO DAILY 04/17/19 [History Confirmed 04/17/19] Active Medications Albuterol/Ipratropium (Duoneb) 3 ml INHALATION Q6H.RESPIRATORY CAROLYN Last Admin: 04/18/19 16:53 Dose: 3 ml Documented by: Budesonide (Pulmicort) 0.5 mg INHALATION BID.RESPIRATORY CAROLYN Dexamethasone (Decadron) 4 mg IVP Q6H CAROLYN Escitalopram Oxalate (Lexapro) 20 mg PO DAILY CAROLYN Last Admin: 04/18/19 08:15 Dose: 20 mg Documented by: Folic Acid (Folic Acid) 1 mg PO DAILY CAROLYN Last Admin: 04/18/19 08:15 Dose: 1 mg Documented by: Heparin Sodium (Beef Lung) (Heparin) 5,000 unit SUBCUT Q8H CAROLYN (it was held) ) Last Admin: 04/18/19 12:18 Dose: 5,000 unit Documented by: Potassium Chloride/Sodium Chloride (Sodium Chlor 0.9% + Kcl 20 Meq) 20 meq in 1,000 mls @ 150 mls/hr IV .Q6H40M CAROLYN Last Admin: 04/18/19 16:23 Dose: 150 mls/hr Documented by: Dexmedetomidine HCl 400 mcg/ (Sodium Chloride) 104 mls @ 0 mls/hr IV .Q0M CAROLYN; Protocol Levetiracetam 1,000 mg/ Sodium (Chloride) 110 mls @ 440 mls/hr IV Q12H CAROLYN Tranexamic Acid 1,000 mg/ (Sodium Chloride) 110 mls @ 330 mls/hr IV ONCE ONE Stop: 04/18/19 20:36 Lidocaine HCl (Lidocaine 1%) 0.1 ml INTRADERMA PRN PRN PRN Reason: Anesthetic prior to IV start Lidocaine/Prilocaine (Emla) applic TOPICAL ONCE ONE Stop: 04/18/19 20:18 Lorazepam (Ativan) 2 mg IVP Q2H PRN PRN Reason: ANXIETY Last Admin: 04/18/19 20:20 Dose: 2 mg Documented by: Multivitamins Therapeutic (Multivitamin Tab) 1 tab PO DAILY [facility] Last Admin: 04/18/19 08:15 Dose: 1 tab Documented by: Ondansetron HCl (Zofran) 4 mg IVP Q6H PRN PRN Reason: NAUSEA AND VOMITING Pantoprazole Sodium (Protonix) 40 mg IVP DAILY [facility] Thiamine Mononitrate (Vitamin B-1) 100 mg PO DAILY [facility] Last Admin: 04/18/19 08:15 Dose: 100 mg Documented by: Discharge Plan Discharge Patient Disposition: Xfer Other Condition: Stable Prescriptions: No Action omeprazole 20 mg Tablet,Delayed Release (Dr/Ec) 20 mg PO DAILY RF: 0 Anti-Depressant RF: 0 Discharge Orders: Discharge Order (Routine); Ordered 04/18/19 Ordered By: Kaylie Riggins Referrals: Og Bal [Family Provider] - Transfer Attestations Time Spent in Transfer Care*: critical care time Critical Care Time (min): 50 Status at Transfer: Cognitive status at transfer: mildly impaired cognition, Behavioral status at transfer: cooperative, Functional status at transfer: bed bound Overall status at transfer: patient is not back to baseline Quality Metrics Clinical Quality Measures: During this hospital stay, did patient experience: None Coding Level of Care Code Acute Tin Recovery Worker for Caleb Fwd Diagnoses Middle cerebral artery aneurysm I67.1 Alcohol withdrawal F10.239 Rhabdomyolysis M62.82 Gastritis due to alcohol without hemorrhage K29.20 Nausea & vomiting R11.2 Thrombocytopenia D69.6 COPD (chronic obstructive pulmonary disease) J44.9
[2019-04-18 20:29] LABS: HIV 1 & 2 Antibody Non-Reactive (Non-Reactiv); HIV 1 & 2 Antigen Non-Reactive (Non-Reactiv)
[2019-04-18] MEDS: budesonide 0.5 mg/2 mL Neb INHALATION (20:29)
[2019-04-18] MEDS: dexamethasone 10 mg/mL INJ IVP (20:31)
--- NOTE | 2019-04-18 21:32 | PC.NURSE ---
Report Called to Margarita Banks RN at [facility] at 4135. Bed # received by Argenis Recio RN bed #8932.
[2019-04-18 21:34] LABS: ABG PCO2 36.7 mmHg (35-45); ABG PH Result 7.45 (7.35-7.45); Arterial Blood Gas Hematocrit 35.2 % (42-52); Base Excess ABG 1.7 mmol/L (-2.0-2.0); Blood Gas Allen Test Pos; Blood Gas Sample Site Radial, right; Blood Gas Sample Type Arterial; HCO3 ABG 25.6 mmol/L (22-26); Oxygen Device NC; PO2 ABG 67.2 mmHg (80.0-100.0)
--- NOTE | 2019-04-18 21:48 | PM.EVENT ---
Event Note Event Note: 04/18/2019 1600 Called by RN from ICU around 3 PM stating patient is not responding. At present patient is 0.2 precedex gtt. On exam patient GCS: E1M2V1 but protecting airway. HR: 80 bpm BP 89/62mmhg RR:18/min SPO2: 94% on RA Having few jittery movements of lower limbs. Plan : Stop Precedex Bolus NS [address] head to r/o bleed in view of low Plts EEG for possible seizure. Prolactin Will hold off Keppra for now as not sure if having seizures and possible effect from Ativan and Precedex. Event Notes Attestations Time Spent in Patient Care: Greater than 35 minutes
--- NOTE | 2019-04-18 22:24 | PC.NURSE ---
[facility] stret[facility] transport arrived to take patient to [facility]. Pt left with NS with 20kcl infusing at 150ml and Precedex drip infusing at 0.3mcgPt left with bag of clothing and cell phone. Daughter Mumtaz Noonan was notified by phone.
[2019-04-20 17:21] LABS: Myoglobin Qualitative Urine 4090 mcg/L (<28)
== END 2019-04-18 22:36 | disposition short-term general hospital (02) | DRG 392 ==
LOC: ER 19:57 → MEDSURG 19:59 → ICU 04-18 13:40
PROVIDERS: Internal Medicine; Admitting Provider Student in an Organized Health Care Education/Training Program; Emergency Provider Family Medicine; Family Provider Family Medicine; Visit Provider Student in an Organized Health Care Education/Training Program
DX: K29.20 Alcoholic gastritis without bleeding (principal); M62.82 Rhabdomyolysis; N17.9 Acute kidney failure, unspecified; E87.4 Mixed disorder of acid-base balance; F10.239 Alcohol dependence with withdrawal, unspecified; R40.2413 Glasgow coma scale score 13-15, at hospital admission; J44.9 Chronic obstructive pulmonary disease, unspecified; F17.210 Nicotine dependence, cigarettes, uncomplicated; I67.1 Cerebral aneurysm, nonruptured; E86.0 Dehydration; D69.59 Other secondary thrombocytopenia; F32.9 Major depressive disorder, single episode, unspecified; Z86.010 Personal history of colon polyps
CPT/HCPCS: 12345; 36415; 36416; 36600; 70450; 71045; 73020; 74176; 80048; 80053; 80074; 80307; 81001; 82140; 82550; 82803; 82805; 82962; 83735; 84100; 84146; 85025; 85610; 85730; 87086; 87389; 94640; 96360; 96372; 96374; 96375; 97162; 99282; G0378; J1100; J1644; J1953; J2060; J2405; J3411; J7030; J7626

== ENCOUNTER 2019-09-29 23:46 | Inpatient (IN) | payer OTHER, MEDICARE, SELFPAY ==
[2019-09-29 23:51] VITALS: BP 101/60; PULSE 114; RESP 17; TEMP 36.6; O2SAT 94; BMI 24.3
[2019-09-30] VITALS (15 sets, daily range): BP systolic 94–143; BP diastolic 63–94; PULSE 84–122; RESP 14–18; TEMP 36.8–37.9; O2SAT 79–99
--- NOTE | 2019-09-30 00:30 | ED_ITS ---
Documented by User: MICHELLE Lopez 09/30/19 00:31 HPI - Psych General: Chief Complaint: Psychiatric Symptoms Stated Complaint: fever Time Seen by Provider: 09/30/19 00:23 History of Present Illness: HPI Narrative: Patient states he would like to have some help quit drinking afraid he might going to DTs that he is in 4-6 winkle today for the last 5 to 6 days and not really eating and is been having some nausea not vomiting and would like to have some medication help he denies being suicidal does feel depressed does receive mental health services through the [place] [facility] MD complaint: feels depressed Onset (ago): day(s) Duration: constant Associated symptoms: Deny depression Review of Systems Const: Denies: fever(s), chills or body aches Eyes: Denies: change in vision or blurry vision ENMT: Denies: throat pain or nasal congestion Card: Denies: chest pain or dyspnea on exertion Resp: Denies: dyspnea, productive cough or non-productive cough GI: Reports: abdominal pain and nausea; Denies: vomiting : Denies: difficulty urinating Musc: Denies: extremity pain Skin/Breast: Denies: rash Neuro: Denies: headache(s) Psych: Denies: anxiety or depression Octavio/Lymph: Denies: easy bruising Physical Exam Const: COMMON NORMALS: no acute distress, average body habitus and patient oriented x3 HENMT: COMMON NORMALS: normocephalic HEAD & SCALP: normal to inspection and normocephalic FACE & SINUS: normal facial exam Eye: COMMON NORMALS: conjunctivae normal GENERAL EYE: appearance normal, both eyes and all related structures CONJUNCTIVA: Yes conjunctivae normal Neck/C-Spine: COMMON NORMALS: no JVD Chest: COMMONS NORMALS: normal inspection of the chest Resp: COMMON NORMALS: normal respiratory effort and clear to auscultation bilaterally AUSCULTATION: clear to auscultation bilaterally Cardio: COMMON NORMALS: no JVD, regular rate and regular rhythm RATE: regular rate RHYTHM: regular rhythm GI: AUSCULTATION: Yes normoactive bowel sounds PALPATION: Yes Tenderness to palpation present (GI) Details: LLQ and RLQ Extremity: COMMON NORMALS: normal to inspection and full ROM Neuro: COMMON NORMALS: patient oriented x3 MDM - Psych Lab Data: Labs: Lab Results 09/30/19 09/30/19 09/30/19 Range/Units 00:45 00:45 00:45 WBC 5.1 (4.0-10.0) 10^3/ uL RBC 4.71 (4.1-5.3) 10^6/u L Hgb 16.3 (11.7-16.6) g/dL Hct 44.0 (42.0-52.0) % MCV 93.4 (80-94) fL MCH 34.6 H (28.0-34.0) pg MCHC 37.0 H (30.0-36.0) g/dL RDW 15.4 H (12.1-15.1) % Plt Count 81 L (130-400) 10^3/c mm MPV 9.9 (7.4-10.4) fL Neut % (Auto) 59.2 % Lymph % (Auto) 20.7 % [place] % (Auto) 16.0 % Eos % (Auto) 2.3 % Baso % (Auto) 1.4 % Neut # (Auto) 3.0 (1.8-7.7) 10^3/u L Lymph # (Auto) 1.1 (0.8-4.8) 10^3/u L [place] # (Auto) 0.8 (0.2-0.9) 10^3/u L Eos # (Auto) 0.1 (0.0-0.8) 10^3/u L Baso # (Auto) 0.1 (0.0-0.1) 10^3/u L Nucleated RBC % (a uto) 0 % Nucleated RBCs # 0.0 /100WBC PT (10.5-13.3) SECO NDS INR (0.8-1.2) Sodium 133 L (136-145) mmol/L Potassium 3.2 L (3.5-5.1) mmol/L Chloride 91 L (98-107) mmol/L Carbon Dioxide 25 (22-29) mmol/L Anion Gap 20.2 H (5-19) BUN 1 L (6-20) mg/dL Creatinine 0.6 L (0.7-1.2) mg/dL GFR Calculation 139.4 H (90-130) mL/min Glucose 147 H (65-115) mg/dL Calculated Osmolal ity 274 L (285-295) mOsm/k g Calcium 8.2 L (8.5-10.5) mg/dL Total Bilirubin 5.2 H (0.15-1.2) mg/dL AST 189 H (0-40) U/L ALT 54 H (0-41) U/L Alkaline Phosphata se 191 H (40-130) IU/L Total Protein 6.4 L (6.6-8.7) g/dL Albumin 3.3 L (3.5-5.2) g/dL Globulin 3.1 (1.3-4.6) g/dL Lipase 21 (13-60) U/L Vitamin B12 1455 H (232-1245) pg/mL Acetaminophen (10-30) ug/mL Hepatitis A IgM Ab Non-reactive (Nonreactive) Hep Bs Antigen Non-reactive (Nonreactive) Hep B Core IgM Ab Non-reactive (Nonreactive) Hepatitis C Antibo dy Non-reactive (Nonreactive) 09/30/19 09/30/19 Range/Units 00:45 00:45 WBC (4.0-10.0) 10^3/ uL RBC (4.1-5.3) 10^6/u L Hgb (11.7-16.6) g/dL Hct (42.0-52.0) % MCV (80-94) fL MCH (28.0-34.0) pg MCHC (30.0-36.0) g/dL RDW (12.1-15.1) % Plt Count (130-400) 10^3/c mm MPV (7.4-10.4) fL Neut % (Auto) % Lymph % (Auto) % [place] % (Auto) % Eos % (Auto) % Baso % (Auto) % Neut # (Auto) (1.8-7.7) 10^3/u L Lymph # (Auto) (0.8-4.8) 10^3/u L [place] # (Auto) (0.2-0.9) 10^3/u L Eos # (Auto) (0.0-0.8) 10^3/u L Baso # (Auto) (0.0-0.1) 10^3/u L Nucleated RBC % (a uto) % Nucleated RBCs # /100WBC PT 15.40 H (10.5-13.3) SECO NDS INR 1.18 (0.8-1.2) Sodium (136-145) mmol/L Potassium (3.5-5.1) mmol/L Chloride (98-107) mmol/L Carbon Dioxide (22-29) mmol/L Anion Gap (5-19) BUN (6-20) mg/dL Creatinine (0.7-1.2) mg/dL GFR Calculation (90-130) mL/min Glucose (65-115) mg/dL Calculated Osmolal ity (285-295) mOsm/k g Calcium (8.5-10.5) mg/dL Total Bilirubin (0.15-1.2) mg/dL AST (0-40) U/L ALT (0-41) U/L Alkaline Phosphata se (40-130) IU/L Total Protein (6.6-8.7) g/dL Albumin (3.5-5.2) g/dL Globulin (1.3-4.6) g/dL Lipase (13-60) U/L Vitamin B12 (232-1245) pg/mL Acetaminophen < 5.0 L (10-30) ug/mL Hepatitis A IgM Ab (Nonreactive) Hep Bs Antigen (Nonreactive) Hep B Core IgM Ab (Nonreactive) Hepatitis C Antibo dy (Nonreactive) Discharge Plan Discharge Patient Disposition: Placed in Observation Clinical Impression: Alcohol abuse, Hyperbilirubinemia Alcoholic hepatitis Qualifiers: Ascites presence: unspecified Qualified Code(s): K70.10 - Alcoholic hepatitis without ascites Condition: Stable Coding Level of Care Code ED Fresh Work Inspector for Chg Fwd Exam Comprehensive Documented by User: Melo Guy DO 09/30/19 04:06 HPI - Psych General: Chief Complaint: Psychiatric Symptoms Stated Complaint: fever Time Seen by Provider: 09/30/19 00:23 MDM - Psych MDM Narrative: Medical decision making narrative: This patient was originally seen by MICHELLE Murillo. I have evaluated the patient as well as a 54-year-old male who drinks daily. He presented because he has been vomiting, and associates his vomiting and illness to when he tries to stop drinking. His significant other states that he drinks daily. She has noticed him more lethargic. His white count is 5.1, hemoglobin 16. He has mild hypokalemia. He has significant hyperbilirubinemia of 5.1. He has mild transaminase elevation o therwise. His platelet count is 81. CT shows a distended hydropic gallbladder without wall thickening or bile duct dilatation. Ultrasound confirms no bile duct dilatation. There is no cholecystitis/wall thickening/pericholecystic fluid by ultrasound. There are gallstones present. The possibility remains that he could have recently passed a gallstone. He could also have significant alcoholic liver disease. He will be observed, given fluid. His bilirubin will be watched closely. Lab Data: Labs: Lab Results 09/30/19 09/30/19 09/30/19 Range/Units 00:45 00:45 00:45 WBC 5.1 (4.0-10.0) 10^3/ uL RBC 4.71 (4.1-5.3) 10^6/u L Hgb 16.3 (11.7-16.6) g/dL Hct 44.0 (42.0-52.0) % MCV 93.4 (80-94) fL MCH 34.6 H (28.0-34.0) pg MCHC 37.0 H (30.0-36.0) g/dL RDW 15.4 H (12.1-15.1) % Plt Count 81 L (130-400) 10^3/c mm MPV 9.9 (7.4-10.4) fL Neut % (Auto) 59.2 % Lymph % (Auto) 20.7 % [place] % (Auto) 16.0 % Eos % (Auto) 2.3 % Baso % (Auto) 1.4 % Neut # (Auto) 3.0 (1.8-7.7) 10^3/u L Lymph # (Auto) 1.1 (0.8-4.8) 10^3/u L [place] # (Auto) 0.8 (0.2-0.9) 10^3/u L Eos # (Auto) 0.1 (0.0-0.8) 10^3/u L Baso # (Auto) 0.1 (0.0-0.1) 10^3/u L Nucleated RBC % (a uto) 0 % Nucleated RBCs # 0.0 /100WBC PT (10.5-13.3) SECO NDS INR (0.8-1.2) Sodium 133 L (136-145) mmol/L Potassium 3.2 L (3.5-5.1) mmol/L Chloride 91 L (98-107) mmol/L Carbon Dioxide 25 (22-29) mmol/L Anion Gap 20.2 H (5-19) BUN 1 L (6-20) mg/dL Creatinine 0.6 L (0.7-1.2) mg/dL GFR Calculation 139.4 H (90-130) mL/min Glucose 147 H (65-115) mg/dL Calculated Osmolal ity 274 L (285-295) mOsm/k g Calcium 8.2 L (8.5-10.5) mg/dL Total Bilirubin 5.2 H (0.15-1.2) mg/dL AST 189 H (0-40) U/L ALT 54 H (0-41) U/L Alkaline Phosphata se 191 H (40-130) IU/L Total Protein 6.4 L (6.6-8.7) g/dL Albumin 3.3 L (3.5-5.2) g/dL Globulin 3.1 (1.3-4.6) g/dL Lipase 21 (13-60) U/L Vitamin B12 1455 H (232-1245) pg/mL Acetaminophen (10-30) ug/mL Hepatitis A IgM Ab Non-reactive (Nonreactive) Hep Bs Antigen Non-reactive (Nonreactive) Hep B Core IgM Ab Non-reactive (Nonreactive) Hepatitis C Antibo dy Non-reactive (Nonreactive) 09/30/19 09/30/19 Range/Units 00:45 00:45 WBC (4.0-10.0) 10^3/ uL RBC (4.1-5.3) 10^6/u L Hgb (11.7-16.6) g/dL Hct (42.0-52.0) % MCV (80-94) fL MCH (28.0-34.0) pg MCHC (30.0-36.0) g/dL RDW (12.1-15.1) % Plt Count (130-400) 10^3/c mm MPV (7.4-10.4) fL Neut % (Auto) % Lymph % (Auto) % [place] % (Auto) % Eos % (Auto) % Baso % (Auto) % Neut # (Auto) (1.8-7.7) 10^3/u L Lymph # (Auto) (0.8-4.8) 10^3/u L [place] # (Auto) (0.2-0.9) 10^3/u L Eos # (Auto) (0.0-0.8) 10^3/u L Baso # (Auto) (0.0-0.1) 10^3/u L Nucleated RBC % (a uto) % Nucleated RBCs # /100WBC PT 15.40 H (10.5-13.3) SECO NDS INR 1.18 (0.8-1.2) Sodium (136-145) mmol/L Potassium (3.5-5.1) mmol/L Chloride (98-107) mmol/L Carbon Dioxide (22-29) mmol/L Anion Gap (5-19) BUN (6-20) mg/dL Creatinine (0.7-1.2) mg/dL GFR Calculation (90-130) mL/min Glucose (65-115) mg/dL Calculated Osmolal ity (285-295) mOsm/k g Calcium (8.5-10.5) mg/dL Total Bilirubin (0.15-1.2) mg/dL AST (0-40) U/L ALT (0-41) U/L Alkaline Phosphata se (40-130) IU/L Total Protein (6.6-8.7) g/dL Albumin (3.5-5.2) g/dL Globulin (1.3-4.6) g/dL Lipase (13-60) U/L Vitamin B12 (232-1245) pg/mL Acetaminophen < 5.0 L (10-30) ug/mL Hepatitis A IgM Ab (Nonreactive) Hep Bs Antigen (Nonreactive) Hep B Core IgM Ab (Nonreactive) Hepatitis C Antibo dy (Nonreactive) Discharge Plan Discharge Patient Disposition: Placed in Observation Clinical Impression: Alcohol abuse, Hyperbilirubinemia Alcoholic hepatitis Qualifiers: Ascites presence: unspecified Qualified Code(s): K70.10 - Alcoholic hepatitis without ascites Condition: Stable Coding Level of Care Code ED Fresh Work Inspector for Chg Fwd Exam Comprehensive
[2019-09-30] MEDS: ondansetron 2 mg/ML SDV 2 mL 4 MG IVP ×2 (00:45→21:53)
[2019-09-30] MEDS: sodium chloride 0.9% 1,000 ML 999 ML IV ×2 (00:48→01:53)
[2019-09-30 00:57] LABS: Basophils # 0.1 10^3/uL (0.0-0.1); Basophils % 1.4 %; Eosinophils # 0.1 10^3/uL (0.0-0.8); Eosinophils % 2.3 %; Hemoglobin 16.3 g/dL (11.7-16.6); Lymphocytes # 1.1 10^3/uL (0.8-4.8); Lymphocytes % 20.7 %; Mean Corpuscular Hemoglobin 34.6 pg (28.0-34.0); Mean Corpuscular Volume 93.4 fL (80-94); Mean Platelet Volume 9.9 fL (7.4-10.4); Monocytes # 0.8 10^3/uL (0.2-0.9); Neutrophils % 59.2 %; Nucleated Red Blood Cells % 0 %; Platelet Count 81 10^3/cmm (130-400); Red Blood Count 4.71 10^6/uL (4.1-5.3); Red Cell Distribution Width 15.4 % (12.1-15.1); White Blood Count 5.1 10^3/uL (4.0-10.0)
[2019-09-30 01:18] LABS: Alanine Aminotransferase 54 U/L (0-41); Albumin Level 3.3 g/dL (3.5-5.2); Alkaline Phosphatase 191 IU/L (40-130); Anion Gap 20.2 (5-19); Aspartate Amino Transferase 189 U/L (0-40); Calcium 8.2 mg/dL (8.5-10.5); Carbon Dioxide 25 mmol/L (22-29); Chloride 91 mmol/L (98-107); Creatinine Clr Calc Pharmacy 162.9312; Globulin 3.1 g/dL (1.3-4.6); Glomerular Filtration Rate 139.4 mL/min (90-130); Glucose 147 mg/dL (65-115); Lipase 21 U/L (13-60); Potassium 3.2 mmol/L (3.5-5.1); Sodium 133 mmol/L (136-145); Total Bilirubin 5.2 mg/dL (0.15-1.2); Total Protein 6.4 g/dL (6.6-8.7)
[2019-09-30] MEDS: multivitamin therapeutic Tablet 1 TAB PO ×2 (01:19→08:34)
--- NOTE | 2019-09-30 01:20 | CTR_ITS ---
PROCEDURE INFORMATION: Exam: CT Abdomen And Pelvis With Contrast Exam date and time: 09/30/2019 1:29 AM Age: 54 years old Clinical indication: Abdominal pain; Localized; Right upper quadrant (ruq); Additional info: Abd pain, high bilirubin TECHNIQUE: Imaging protocol: Computed tomography of the abdomen and pelvis with intravenous contrast. Radiation optimization: All CT scans at this facility use at least one of these dose optimization techniques: automated exposure control; mA and/or kV adjustment per patient size (includes targeted exams where dose is matched to clinical indication); or iterative reconstruction. Contrast material: OMNI 300; Contrast volume: 95 ml; Contrast route: INTRAVENOUS (IV); COMPARISON: US gall bladder [id number] 09/30/2019 1:49 AM RADIATION DOSE METRICS: Total DLP (mGy-cm): 1383.96 FINDINGS: Mediastinal space: A partially visualized hyperdensity is seen in the distal esophagus, measuring at least 12 x 5 mm. This could represent pill, however, a foreign body cannot be excluded. Moderate hiatal hernia. Liver: Enlarged, fatty liver. Gallbladder and bile ducts: Hydropic gallbladder with possible cholelithiasis without pericholecystic inflammatory changes. Pancreas: Normal. No ductal dilation. Spleen: No splenomegaly. Adrenals: Normal. No mass. Kidneys and ureters: Duplicated left renal collecting system. Stomach and bowel: No obstruction. No wall thickening. Appendix: Normal appendix. Intraperitoneal space: No free air. No significant fluid collection. Vasculature: No abdominal aortic aneurysm. Lymph nodes: No enlarged lymph nodes. Bladder: Unremarkable as visualized. Reproductive: Unremarkable as visualized. Bones/joints: Unremarkable. No acute fracture. Soft tissues: See Mediastinal space finding. CT/CT abdomen pelvis w con* [id number] IMPRESSION: 1. A partially visualized hyperdensity is seen in the distal esophagus, measuring at least 12 x 5 mm. This could represent pill, however, a foreign body cannot be excluded. Please correlate clinically. 2. Hydropic gallbladder with possible cholelithiasis without pericholecystic inflammatory changes. 3. Enlarged, fatty liver. 4. Moderate hiatal hernia. Radiation Dose CTDIVOL = (mGy): DLP = 1383.96 (mGy-cm)
[2019-09-30 01:24] LABS: Blood Urea Nitrogen 1 mg/dL (6-20); Osmolality Calculated 274 mOsm/kg (285-295)
--- NOTE | 2019-09-30 01:27 | US_ITS ---
WS: [id number] RIGHT UPPER QUADRANT ULTRASOUND HISTORY: abd pain, elevated bili COMPARISON: CT 09/30/2019 Liver: 18.0 cm in length. Mildly enlarged liver with coarsened echotexture. Surface of the liver is s lightly irregular. Changes of mild hepatic steatosis. No bile duct dilatation. Gallbladder: Gallbladder is moderately distended with layering stones. No pericholecystic fluid or ga llbladder wall thickening. CBD: 0.6 cm Pancreas: Tail is obscured. Head and body are negative. Right kidney: 11.7 cm in length. Normal echogenicity with no mass or hydronephrosis. Aorta and IVC: Unremarkable. No ascites. US/US gall bladder [id number] IMPRESSION: 1. Mildly hydropic gallbladder with cholelithiasis. No wall thickening or brittnee cholecystic fluid. 2. No bile duct dilatation. 3. Mild hepatic steatosis and hepatomegaly.
[2019-09-30 01:32] LABS: Vitamin B12 1455 pg/mL (232-1245)
--- NOTE | 2019-09-30 01:40 | PC.NURSE ---
Put on 2 L O2 per MD request after desat while sleeping
[2019-09-30] MEDS: potassium chloride ER 10 mEq Tablet 40 MEQ PO (01:53)
[2019-09-30 01:58] LABS: Acetaminophen < 5.0 ug/mL (10-30)
[2019-09-30 02:13] LABS: INR 1.18 (0.8-1.2)
[2019-09-30 02:17] LABS: Hepatitis A Antibody IgM Non-Reactive (Nonreactive); Hepatitis B Core IgM Non-Reactive (Nonreactive); Hepatitis B Surface Antigen Non-Reactive (Nonreactive); Hepatitis C Virus Antibody Non-Reactive (Nonreactive)
[2019-09-30] MEDS: iohexol 300 mg/mL 100 mL Btl IV (02:36)
--- NOTE | 2019-09-30 03:37 | P.HP_ITS ---
Providers/Chief Complaint Chief Complaint: fever History of Present Illness Angelo Noonan is a 54 year old male who does not carry significant past medical history other than alcohol abuse came in for alcohol intoxication. Patient is stating that his last alcoholic drink was around afternoon and then he does not remember what happened, he states probably his daughter called EMS t o take him to the hospital. Patient is stating that he is going through social stressors, going through divorce, he was supposed to go to [place] to see his biological mother but could not go. Lately for last 2 months he has started drinking heavily. He is drinking 7 to 8, cans of beer every day which are 24 ounces. He had alcohol withdrawal symptoms 5 months ago, he was not admitted or intubat ed. He does not take any medication at home other than albuterol for symptomatic relief. He is denying chest pain, shortness of breath, nausea, vomiting, headache, visual hallucination. Diagnostics in the ER revealed alcoholic hepatitis, I ordered stat blood alcohol level Systolic blood pressure was ranging between 94/65, after getting normal saline bolus his blood pressure improved to 109/78mmhg Hypokalemia, Hepatitis panel negative CT abdomen pelvis did not reveal any CBD dilation, cholelithiasis without cholecystitis, fatty liver, moderate hiatal hernia Review of Systems Const: Denies: fever(s), chills or body aches Eyes: Denies: change in vision ENMT: Denies: throat pain or uvular edema Card: Denies: chest pain Resp: Denies: dyspnea GI: Denies: abdominal pain : Denies: flank pain Musc: Denies: neck pain Skin/Breast: Denies: rash Neuro: Denies: headache(s) Psych: Reports: depression, mood swings, sleeping more and hopelessness; Denies: anxiety or suicidal ideation Endo: Denies: polyuria Octavio/Lymph: Denies: easy bruising All/Imm: Denies: urticaria Medications/Allergies Allergies Allergy/AdvReac Type Severity Reaction Status Date / Time No Known Allergies Allergy Verified 09/30/19 00:32 PFSH Acute PFSH: Medical History (Updated 09/30/19 @ 04:52 by Kaylie Riggins MD) Hiatal hernia Surgical History (Updated 09/30/19 @ 04:52 by Kaylie Riggins MD) H/O knee surgery H/O shoulder surgery History of esophageal hernia repair Family History (Updated 09/30/19 @ 04:52 by Kaylie Riggins MD) Denies family history of Lung disease Hypertension Social History (Updated 09/30/19 @ 04:53 by Kaylie Riggins MD) Smoking and tobacco status: light tobacco smoker cigarettes [ Other cigarette details: 2 to 3 cigarettes a day ] Alcohol intake: current Alcohol type: beer Alcohol use comment: 7 to 8 cans of beer 24 ounces per can Substance/Drug Use: unknown Household members: family Housing: House Vitals/I&O/Wt Last Vital Signs Temp 97.9 F 09/29/19 23:51 Pulse 92 09/30/19 03:16 Resp 16 09/30/19 03:16 BP 94/65 09/30/19 03:16 Pulse Ox 96 09/30/19 03:16 09/29/19 09/29/19 09/30/19 14:59 22:59 06:59 Intake Total 1000 / 1000 Balance 1000 / 1000 Weight last 48 hrs Weight 86.183 kg Physical Exam Narrative: EXAM NARRATIVE: Patient was intoxicated at the time of interview Oriented to time and person but not place, he stated he is in [place] No asterixis Active withdrawal Icterus S1, S2 no tachycardia No sign of heart failure Well-built male Abdomen soft nontender nondistended, no CVA tenderness, negative Vital sign Bowel sound present Lower extremity without any sign of edema gangrene ulcer Drowsy however neurologically nonfocal exam Depressed mood EOMI, PERRLA Data : 09/30/19 00:45 09/30/19 00:45 A&P Assessment and plan (1) Alcoholic hepatitis: Status: Acute Qualifiers: Ascites presence: unspecified Qualified Code(s): K70.10 - Alcoholic hepatitis without ascites (2) Hyperbilirubinemia: Status: Acute (3) Cholelithiasis: Status: Acute (4) Alcohol abuse: Status: Acute Additional A&P Information Alcoholic hepatitis DF score 28, Since it is less than 32 I would not start prednisolone or methylprednisone at this point Consult heavily on alcohol cessation Hepatitis panel negative No signs of CBD dilation Waiting on official report on gallbladder ultrasound Patient is afebrile no signs of cholangitis I believe his symptoms and abnormal transaminases are secondary to alcoholic hepatitis Alcohol intoxication Ordered stat blood alcohol level, CIWA protocol Cholelithiasis without cholecystitis Afebrile, no leukocytosis, no signs of cholangitis, no need of antibiotics at this point, resuscitate with fluids History of hiatal hernia repair No active exacerbation Would use Protonix 40 mg daily Hypokalemia repleted Check magnesium Corrected calcium is normal Full code Regular diet DVT prophylaxis Lovenox Attestations Medical Necessity Statement*: Anticipating discharge in less than 48 hours currently alcohol intoxication need monitoring for alcoholic hepatitis Time Spent in Patient Care: (>than 50% of time spent in counselling and/or direct pt care on unit) . 45-minute Coding Level of Care Code Acute Construction Grip for [facility] Fwd Diagnoses Alcoholic hepatitis K70.10 Ascites presence: unspecified Hyperbilirubinemia E80.6 Cholelithiasis K80.20 Alcohol abuse F10.10
[2019-09-30 04:17] LABS: Alcohol Level 372 mg/dL (0-10)
[2019-09-30] MEDS: enoxaparin 40 mg/0.4 mL Syringe SUBCUT (06:22)
[2019-09-30] MEDS: sodium chloride 0.9% 1,000 ML 100 ML IV ×2 (06:23→17:17)
[2019-09-30 06:35] LABS: Magnesium 1.8 mg/dL (1.7-2.3)
[2019-09-30] MEDS: pantoprazole DR 40 mg Tablet PO (08:34)
[2019-09-30] MEDS: thiamine 100 mg Tablet PO (08:34)
[2019-09-30] MEDS: folic acid 1 mg Tablet PO (08:34)
--- NOTE | 2019-09-30 09:16 | PC.CHAP ---
Pastoral Care Encounter/Spiritual Assessment Type of Contact [] Declined branch service specialist visit [] Patient/Family/Request visit [] Outpatient visit [] Follow-up visit [] Physician referral [] Code/Alert [x] Routine visit [] Staff referral [] Actively dying [] Patient sleeping [] Family support [] [] Out of room [] Palliative care [] [] Receiving care in room [] Pre-surgical visit [] Trauma [] Long length of stay [] ICU visit [] Other: Relational/Emotional Strength [] Patient feels connected with others/family/visitors/staff [] Distress [] Loneliness/isolation [] Abandonment Spirituality of Patient [] Person of Dalila [] Attends Baptist of their Dalila [] Believes in Prayer [] Reads Bible or Confucianist materials [] There are Spiritual issues to be addressed Dog Show Judge Interventions [x] Prayer [x] Active listening [x] Non-anxious presence [x] Spiritual/emotional support [] Crisis/trauma care [] Spiritual counseling [] Bereavement support [] Provided bereavement packet [] Provided Bible/devotional materials [] Provided toy/stuffed animal, coloring book to patient or family member [] Provided Communion [] Anointing/[place] [] Salvation [x] Completed spiritual assessment [] Other: Impact on Illness or Injury [] Angry [] Fearful [] Anxious [] Often cries [] Exhaustion [] Unable to work [] Unable to attend sabianism [] Unable to walk/stand [] Unable to read [] Unable to drive [] Unable to eat/drink [] Unable to sleep [] Unable to be with family [] Patient intubated [] Other: Summary Patient not feeling better. not resting well Time spent with patient 10 min
[2019-09-30] MEDS: LORazepam 2 mg/mL INJ 1 mL IVP ×3 (12:55→21:53)
[2019-09-30] MEDS: folic acid 1 MG, multivitamin inj 10 ML, thiamine 100 MG in sodium chloride 0.9% 1,000 ML 252.8 MG IV (13:01)
[2019-09-30] MEDS: sucralfate 1 gm/10 mL Oral Liq UDC PO ×2 (17:29→21:15)
--- NOTE | 2019-09-30 17:57 | XRR_ITS ---
PROCEDURE INFORMATION: Exam: XR Chest, 1 View Exam date and time: 09/30/2019 8:14 PM Age: 54 years old Clinical indication: Shortness of breath; Additional info: SOB TECHNIQUE: Imaging protocol: XR of the chest Views: 1 view. COMPARISON: No relevant prior studies available. FINDINGS: Lungs: Unremarkable. No consolidation. Pleural space: Unremarkable. No pleural effusion. No pneumothorax. Heart/Mediastinum: Unremarkable. No cardiomegaly. Bones/joints: Unremarkable. XR/XR chest 1V portable [id number] IMPRESSION: No acute findings.
--- NOTE | 2019-09-30 18:02 | PM.PN ---
Subjective Subjective: Interval history: Admitted overnight. H&P noted. He states he is been consuming alcohol for last 2 months because of social stressors. He states he thinks he is been having fever, runny nose, cough getting worse for last 2 weeks. He thinks he has been having fever but has not checked at home. Denies of having any headache. At present he completely is complaining of nausea, dizziness, butterflies in his stomach, jitteriness denies of having any hallucination, feeling of bugs all over his body. Vitals/I&O/Wt Last Vital Signs Temp 100.2 F H 09/30/19 17:00 Pulse 112 H 09/30/19 17:00 Resp 18 09/30/19 17:00 BP 121/84 09/30/19 17:00 Pulse Ox 95 09/30/19 17:00 09/30/19 09/30/19 09/30/19 06:59 14:59 22:59 Intake Total 1999 / 1999 1000 / 1000 Balance 1999 1000 / 1000 Weight last 48 hrs Weight 86.183 kg Physical Exam Narrative: EXAM NARRATIVE: General: No acute distress, AO x3, flushed, CIWA?10 HEENT: PERRLA, pupils bilaterally equal and reactive Chest: Normal vesicular breath sounds, occasional rhonchi, equal good air entry bilaterally CVS: S1-S2 regular, no murmurs, no tachycardia, no gallops, no rubs Abdomen: Soft, Vital's positive, no organomegaly, bowel sounds present Neuro: No focal deficits, no facial deformity, AO x3, power 5/5 in all limbs, jittery Data : 09/30/19 00:45 09/30/19 00:45 A&P Assessment and plan (1) Sepsis: Status: Acute (2) Shortness of breath: Status: Acute (3) Alcoholic hepatitis: Status: Acute Qualifiers: Ascites presence: unspecified Qualified Code(s): K70.10 - Alcoholic hepatitis without ascites (4) Hyperbilirubinemia: Status: Acute (5) Cholelithiasis: Status: Acute (6) Alcohol intoxication: Status: Acute (7) Fever: Status: Acute Additional A&P Information Sepsis secondary to unknown etiology at present: Criteria met with tachycardia, fever. Stat blood cultures, urinalysis, urine culture, chest x-ray, pro-Dave. Start patient on vancomycin and Zosyn both renally dosed. MRCP to rule out cholecystitis. Patient has Vital's positive. Clear liquid diet. Patient is complaining of shortness of breath along with fevers. We will have to rule out COVID-19. Isolation precautions and droplet precautions. Spiriva, Advair. Oxygen supplementation keeping saturation over 92% Chente and as needed. Abnormal transaminases: Most likely alcohol hepatitis given the AST to ALT ratio. Hepatitis panel negative. Abdominal ultrasound consistent with hydropic gallbladder with cholelithiasis. Check MRCP. DF score 28 so we will hold off on my culprit for now. Alcohol intoxication: Ativan as per [facility] protocol. Banana bag followed by normal saline at 100 cc/h. Oral thiamine, folic acid. History of hiatal hernia repair No active exacerbation Would use Protonix 40 mg daily Hypokalemia repleted Corrected calcium is normal Full code Clear liquid diet DVT prophylaxis Lovenox We will switch to inpatient Attestations Medical Necessity Statement*: Alcohol intoxication, sepsis, abnormal transaminase Time Spent in Patient Care: Greater than 35 minutes (>than 50% of time spent in counselling and/or direct pt care on unit). Coding Level of Care Code Acute Stock Control Clerk for g Fwd Diagnoses Sepsis A41.9 Shortness of breath R06.02 Alcoholic hepatitis K70.10 Ascites presence: unspecified Hyperbilirubinemia E80.6 Cholelithiasis K80.20 Alcohol intoxication F10.929 Fever R50.9
[2019-09-30] MEDS: piperacillin-tazobactam 3.375 GM in sodium chloride 0.9% (plus) 50 ML IV (22:25)
[2019-10-01] VITALS (9 sets, daily range): BP systolic 117–142; BP diastolic 68–98; PULSE 56–110; RESP 16–20; TEMP 36.4–37.2; O2SAT 93–98
[2019-10-01] MEDS: ondansetron 2 mg/ML SDV 2 mL 4 MG IVP ×2 (04:23→13:02)
[2019-10-01] MEDS: LORazepam 2 mg/mL INJ 1 mL IVP ×3 (04:24→16:18)
[2019-10-01 04:30] LABS: Basophils # 0.1 10^3/uL (0.0-0.1); Basophils % 1.1 %; Eosinophils # 0.1 10^3/uL (0.0-0.8); Eosinophils % 1.3 %; Hemoglobin 13.2 g/dL (11.7-16.6); Lymphocytes # 0.8 10^3/uL (0.8-4.8); Lymphocytes % 14.9 %; Mean Corpuscular HGB Conc 33.8 g/dL (30.0-36.0); Mean Corpuscular Hemoglobin 33.3 pg (28.0-34.0); Mean Corpuscular Volume 98.5 fL (80-94); Mean Platelet Volume 10.5 fL (7.4-10.4); Monocytes # 0.6 10^3/uL (0.2-0.9); Monocytes % 11.6 %; Neutrophils # 3.7 10^3/uL (1.8-7.7); Neutrophils % 70.7 %; Nucleated Red Blood Cells % 0 %; Platelet Count 82 10^3/cmm (130-400); Red Blood Count 3.96 10^6/uL (4.1-5.3); Red Cell Distribution Width 16.7 % (12.1-15.1); White Blood Count 5.2 10^3/uL (4.0-10.0)
[2019-10-01 05:16] LABS: Alanine Aminotransferase 46 U/L (0-41); Albumin Level 2.7 g/dL (3.5-5.2); Alkaline Phosphatase 158 IU/L (40-130); Aspartate Amino Transferase 188 U/L (0-40); Blood Urea Nitrogen 4 mg/dL (6-20); Calcium 7.6 mg/dL (8.5-10.5); Carbon Dioxide 28 mmol/L (22-29); Chloride 106 mmol/L (98-107); Creatinine Clr Calc Pharmacy 162.9312; Globulin 2.7 g/dL (1.3-4.6); Glomerular Filtration Rate 139.4 mL/min (90-130); Glucose 108 mg/dL (65-115); Osmolality Calculated 286 mOsm/kg (285-295); Sodium 140 mmol/L (136-145); Total Protein 5.4 g/dL (6.6-8.7)
[2019-10-01 05:25] LABS: Total Bilirubin 8.6 mg/dL (0.15-1.2)
[2019-10-01] MEDS: sucralfate 1 gm/10 mL Oral Liq UDC PO ×4 (06:09→21:17)
[2019-10-01] MEDS: sodium chloride 0.9% 1,000 ML 100 ML IV (06:09)
[2019-10-01] MEDS: enoxaparin 40 mg/0.4 mL Syringe SUBCUT (06:10)
--- NOTE | 2019-10-01 07:47 | PC.NURSE ---
nasal pharyngeal sample obtained from patient and transported to the lab.
[2019-10-01] MEDS: multivitamin therapeutic Tablet 1 TAB PO (08:21)
[2019-10-01] MEDS: thiamine 100 mg Tablet PO (08:21)
[2019-10-01] MEDS: folic acid 1 mg Tablet PO (08:21)
[2019-10-01] MEDS: pantoprazole DR 40 mg Tablet PO (08:21)
[2019-10-01 11:03] LABS: Total Bilirubin 8.4 mg/dL (0.15-1.2)
--- NOTE | 2019-10-01 11:24 | PC.NURSE ---
PT OFF UNIT TO MRI
[2019-10-01] MEDS: dextrose 5%-sod chloride 0.45% 1,000 ML 50 ML IV (13:03)
--- NOTE | 2019-10-01 14:48 | P.PN_ITS ---
Subjective Subjective: Interval history: In last 24 hours patient has received 6 mg of IV Ativan. Patient had developed fever in the afternoon yesterday going up to 100.2 Fahrenheit. COVID-19 was requested yesterday but went in earlier today morning. Results not available. Vitals/I&O/Wt Last Vital Signs Temp 98.9 F 10/01/19 07:28 Pulse 91 10/01/19 09:26 Resp 20 H 10/01/19 12:00 BP 142/95 10/01/19 07:28 Pulse Ox 96 10/01/19 09:26 09/30/19 10/01/19 10/01/19 22:59 06:59 14:59 Intake Total 1250 / 1250 1050 / 2300 250 / 250 Output Total 500 / 500 Balance 1250 / 1250 550 / 1800 250 / 250 Weight last 48 hrs Weight 86.183 kg Physical Exam Narrative: EXAM NARRATIVE: General: No acute distress, AO x3, flushed, CIWA?10 HEENT: PERRLA, pupils bilaterally equal and reactive Chest: Normal vesicular breath sounds, occasional rhonchi, equal good air entry bilaterally CVS: S1-S2 regular, no murmurs, no tachycardia, no gallops, no rubs Abdomen: Soft, Vital's positive, no organomegaly, bowel sounds present Neuro: No focal deficits, no facial deformity, AO x3, power 5/5 in all limbs, jittery Data : 10/01/19 03:50 10/01/19 03:50 Micro: Microbiology 09/30/19 18:52 Blood Culture - Preliminary Blood SPECIMEN COLLECTED 09/30/19 18:43 Blood Culture - Preliminary Blood SPECIMEN COLLECTED A&P Assessment and plan (1) Sepsis: Status: Acute (2) Shortness of breath: Status: Acute (3) Alcoholic hepatitis: Status: Acute Qualifiers: Ascites presence: unspecified Qualified Code(s): K70.10 - Alcoholic hepatitis without ascites (4) Hyperbilirubinemia: Status: Acute (5) Cholelithiasis: Status: Acute (6) Alcohol intoxication: Status: Acute (7) Fever: Status: Acute (8) Direct hyperbilirubinemia: Status: Acute Additional A&P Information Sepsis secondary to unknown etiology at present: Criteria met with tachycardia, fever. MRCP results appreciated. Negative for cholecystitis but consistent with hydropic gallbladder with cholelithiasis For now continue with vancomycin and Zosyn at current dose. We will de-escalate antibiotics as per the results of blood cultures. Urinalysis, urine culture, sputum culture, MRSA swab still awaited. Patient has not had any episode of diarrhea. If MRSA swab negative will discontinue vancomycin. COVID-19 results awaited. Continue with isolation precaution. Spiriva, Advair. Oxygen supplementation keeping saturation over 92% Guaifenesin as needed. Abnormal transaminases: Worsening today. INR normal. No stigmata of liver failure. Most likely alcohol hepatitis given the AST to ALT ratio. Elevated direct bilirubin. Results of abdominal ultrasound, MRCP appreciated. Hepatitis panel negative. Check HIV, LDH, GGT, haptoglobin, tick panel. ORVILLE C score?7.4 which puts him at intermediate risk. [place] alcohol hepatitis score is 7 which is less than 9 so most likely will not help with corticosteroids. For now we will continue with supportive treatment with IV hydration, regular diet. We will try to reach out to gastroenterology at [facility] or [facility] for further guidance. Alcohol intoxication: Ativan as per CIWA protocol. D5 NS at 50 cc/h. Continue oral thiamine and folic acid. History of hiatal hernia repair No active exacerbation Would use Protonix 40 mg daily Hypokalemia repleted Corrected calcium is normal Full code Clear liquid diet DVT prophylaxis Lovenox Attestations Medical Necessity Statement*: Acute alcoholic hepatitis, alcohol abuse, sepsis Time Spent in Patient Care: Greater than 35 minutes (>than 50% of time spent in counselling and/or direct pt care on unit) . Coding Level of Care Code Acute Hand Sizer for Caleb Zhong Diagnoses Sepsis A41.9 Shortness of breath R06.02 Alcoholic hepatitis K70.10 Ascites presence: unspecified Hyperbilirubinemia E80.6 Cholelithiasis K80.20 Alcohol intoxication F10.929 Fever R50.9 Direct hyperbilirubinemia E80.6
--- NOTE | 2019-10-01 15:03 | PC.SOCIAL ---
Divorce papers have been dropped off. Nurse indicates patient is not completely alert and oriented therefore not comfortable with these being notarized in hospital. pt is taking mood altering medications. Lucy from Attorneys office has called multiple times. This nurse called Lucy and explained that typically we only notarize documents that pertain to Health Care Directives or Durable Power of Long Line Team[employer]. CM/ SS are not comfortable notarizing personal legal documents such as divorce or financial paperwork. Also we are not comfortable doing so while patient is on medications that might affect thought process. Lucy verbalized understanding and asked when he may be dc'd? This nurse indicates that that date is not known. Was asked to leave paperwork for patient. Paperwork was left.
[2019-10-01 15:18] LABS: Procalcitonin 0.63 ng/mL (0-0.5)
[2019-10-01 15:29] LABS: Gamma Glutamyl Transferase 953 U/L (8-61); Lactate Dehydrogenase 288 U/L (135-225)
[2019-10-01] MEDS: piperacillin-tazobactam 3.375 GM in sodium chloride 0.9% (plus) 50 ML IV (16:18)
--- NOTE | 2019-10-01 17:57 | MR_ITS ---
WS: [id number] MRCP (MAGNETIC RESONANCE CHOLANGIOPANCREATOGRAPHY) HISTORY: abnormal liver number, r/o cholecystitis COMPARISON: CT 09/30/2019. Gallbladder ultrasound 09/30/2019. TECHNIQUE: Multiple sequences are performed to evaluate the intra and extrahepatic ducts. Liver is moderate enlarged measuring 20 cm in length. Changes of diffuse hepatic steatosis. Portal v ein is patent. Common bile duct is never well seen on this examination due to motion. Common bile ashley t is also not dilated on the recent ultrasound or CT evaluation. There is no intrahepatic bile duct d ilatation. Mildly hydropic gallbladder with stones. No wall thickening or adjacent fluid. Transverse diameter of the gallbladder is 4.3 cm. MR/MR MRCP 40465 IMPRESSION: 1. Mildly hydropic gallbladder with cholelithiasis. No evidence for acute chol ecystitis otherwise. 2. Moderate hepatic steatosis and hepatomegaly. 3. Common bile duct is not well visualized on this examination but there is no intrahepatic or extra hepatic duct dilatation.
[2019-10-01 18:47] LABS: Vancomycin Trough 6.6 ug/mL (10-15)
[2019-10-01 20:42] LABS: HIV 1 & 2 Antibody Non-Reactive (Non-Reactiv); HIV 1 & 2 Antigen Non-Reactive (Non-Reactiv)
[2019-10-01 22:02] LABS: Bilirubin Urine 3+ (NEGATIVE); Blood Urine Trace (Negative); Glucose Urine UA Norm (Normal); Ketones Urine Negative (Negative); Nitrate Urine Negative (Negative); Protein Urine Neg (Negative); Urine Appearance Hazy (CLEAR); Urine Color Brown (Yellow); pH Urine 6 (5-7)
[2019-10-01 22:03] LABS: Leukocyte Esterase Urine Negative (Negative); Urobilinogen Urine 2+ mg/dL (Negative)
[2019-10-01 22:07] LABS: Add Urine Culture? No; Bacteria Urine TRACE; RBC Urine 0-4 /hpf (0-2); Squamous Epithelial Cell Urine 0-4 (0-5)
[2019-10-02] VITALS (9 sets, daily range): BP systolic 108–138; BP diastolic 72–88; PULSE 71–112; RESP 16–20; TEMP 37.1–38.8; O2SAT 89–96
[2019-10-02] MEDS: piperacillin-tazobactam 3.375 GM in sodium chloride 0.9% (plus) 50 ML IV ×3 (00:22→18:33)
[2019-10-02] MEDS: ondansetron 2 mg/ML SDV 2 mL 4 MG IVP ×2 (00:28→14:45)
[2019-10-02] MEDS: LORazepam 2 mg/mL INJ 1 mL IVP ×2 (00:28→09:55)
[2019-10-02] MEDS: promethazine 25 mg Tablet PO ×2 (03:23→18:45)
[2019-10-02] MEDS: dextrose 5%-sod chloride 0.45% 1,000 ML 50 ML IV (05:00)
[2019-10-02 08:49] LABS: Coronavirus Lab Test PTC NOT DETECTED
[2019-10-02 09:16] LABS: Alanine Aminotransferase 37 U/L (0-41); Albumin Level 2.8 g/dL (3.5-5.2); Alkaline Phosphatase 130 IU/L (40-130); Anion Gap 12.5 (5-19); Aspartate Amino Transferase 124 U/L (0-40); Blood Urea Nitrogen 4 mg/dL (6-20); Calcium 7.9 mg/dL (8.5-10.5); Carbon Dioxide 27 mmol/L (22-29); Chloride 101 mmol/L (98-107); Creatinine Clr Calc Pharmacy 195.5175; Globulin 2.5 g/dL (1.3-4.6); Glucose 121 mg/dL (65-115); Osmolality Calculated 281 mOsm/kg (285-295); Potassium 3.5 mmol/L (3.5-5.1); Sodium 137 mmol/L (136-145); Total Protein 5.3 g/dL (6.6-8.7)
[2019-10-02] MEDS: enoxaparin 40 mg/0.4 mL Syringe SUBCUT (09:25)
[2019-10-02] MEDS: sucralfate 1 gm/10 mL Oral Liq UDC PO ×4 (09:27→21:03)
[2019-10-02] MEDS: pantoprazole DR 40 mg Tablet PO (09:27)
[2019-10-02] MEDS: thiamine 100 mg Tablet PO (09:27)
[2019-10-02] MEDS: multivitamin therapeutic Tablet 1 TAB PO (09:27)
[2019-10-02] MEDS: folic acid 1 mg Tablet PO (09:27)
[2019-10-02 10:01] LABS: Total Bilirubin 13.5 mg/dL (0.15-1.2)
[2019-10-02] MEDS: guaiFENesin 100 mg/5 mL UDC 10 mL 200 MG PO (11:18)
[2019-10-02 12:50] LABS: Lyme AB Screen <0.90 index
[2019-10-02 13:20] LABS: Basophils # 0.1 10^3/uL (0.0-0.1); Eosinophils # 0.1 10^3/uL (0.0-0.8); Eosinophils % 1.7 %; Hematocrit 38.1 % (42.0-52.0); Lymphocytes # 0.9 10^3/uL (0.8-4.8); Lymphocytes % 14.1 %; Mean Corpuscular HGB Conc 34.1 g/dL (30.0-36.0); Mean Corpuscular Hemoglobin 33.9 pg (28.0-34.0); Mean Corpuscular Volume 99.5 fL (80-94); Mean Platelet Volume 10.1 fL (7.4-10.4); Monocytes # 0.7 10^3/uL (0.2-0.9); Monocytes % 11.1 %; Neutrophils % 71.4 %; Nucleated Red Blood Cells % 0 %; Platelet Count 81 10^3/cmm (130-400); Red Blood Count 3.83 10^6/uL (4.1-5.3); Red Cell Distribution Width 16.1 % (12.1-15.1)
--- NOTE | 2019-10-02 15:45 | PC.RESP ---
Smoking Cessation information and a schedule of classes sent to patient.
[2019-10-02] MEDS: doxycycline 100 mg Tablet PO (18:33)
--- NOTE | 2019-10-02 21:35 | PC.NURSE ---
Nurse called pharmacy per parameters of vancomycin due to vanc trough being too low at 6.6
[2019-10-03] VITALS (11 sets, daily range): BP systolic 95–128; BP diastolic 64–86; PULSE 71–119; RESP 15–25; TEMP 36.9–37.3; O2SAT 91–96
[2019-10-03] MEDS: piperacillin-tazobactam 3.375 GM in sodium chloride 0.9% (plus) 50 ML IV ×3 (00:39→15:32)
[2019-10-03 01:17] LABS: Vancomycin Trough 13.7 ug/mL (10-15)
[2019-10-03] MEDS: ondansetron 2 mg/ML SDV 2 mL 4 MG IVP ×3 (03:54→18:39)
[2019-10-03] MEDS: LORazepam 2 mg/mL INJ 1 mL IVP ×5 (03:57→17:25)
[2019-10-03 05:28] LABS: Basophils % 0.8 %; Eosinophils # 0.1 10^3/uL (0.0-0.8); Eosinophils % 1.9 %; Hematocrit 35.6 % (42.0-52.0); Hemoglobin 12.5 g/dL (11.7-16.6); Lymphocytes # 0.7 10^3/uL (0.8-4.8); Lymphocytes % 12.3 %; Mean Corpuscular HGB Conc 35.1 g/dL (30.0-36.0); Mean Corpuscular Hemoglobin 34.1 pg (28.0-34.0); Mean Platelet Volume 10.5 fL (7.4-10.4); Monocytes # 0.6 10^3/uL (0.2-0.9); Monocytes % 11.2 %; Neutrophils # 3.88 10^3/uL (1.8-7.7); Neutrophils % 73.2 %; Nucleated Red Blood Cells % 0 %; Platelet Count 87 10^3/cmm (130-400); Red Blood Count 3.67 10^6/uL (4.1-5.3); Red Cell Distribution Width 16.1 % (12.1-15.1); White Blood Count 5.3 10^3/uL (4.0-10.0)
[2019-10-03 05:35] LABS: Alanine Aminotransferase 33 U/L (0-41); Albumin Level 2.8 g/dL (3.5-5.2); Alkaline Phosphatase 109 IU/L (40-130); Anion Gap 13.2 (5-19); Aspartate Amino Transferase 92 U/L (0-40); Blood Urea Nitrogen 4 mg/dL (6-20); Calcium 8.2 mg/dL (8.5-10.5); Carbon Dioxide 24 mmol/L (22-29); Chloride 102 mmol/L (98-107); Globulin 2.4 g/dL (1.3-4.6); Glomerular Filtration Rate 222.5 mL/min (90-130); Glucose 126 mg/dL (65-115); Osmolality Calculated 279 mOsm/kg (285-295); Potassium 3.2 mmol/L (3.5-5.1); Sodium 136 mmol/L (136-145); Total Protein 5.2 g/dL (6.6-8.7)
[2019-10-03 05:51] LABS: Total Bilirubin 14.6 mg/dL (0.15-1.2)
[2019-10-03 06:27] LABS: Potassium, Radom Urine 18 mmol/L; Urine Random Chloride 85 mmol/L; Urine Random Sodium 98 mmol/L
[2019-10-03] MEDS: sucralfate 1 gm/10 mL Oral Liq UDC PO ×4 (06:27→21:24)
[2019-10-03] MEDS: enoxaparin 40 mg/0.4 mL Syringe SUBCUT (06:27)
[2019-10-03] MEDS: multivitamin therapeutic Tablet 1 TAB PO (08:51)
[2019-10-03] MEDS: thiamine 100 mg Tablet PO (08:51)
[2019-10-03] MEDS: pantoprazole DR 40 mg Tablet PO (08:51)
[2019-10-03] MEDS: doxycycline 100 mg Tablet PO ×2 (08:51→17:25)
[2019-10-03] MEDS: folic acid 1 mg Tablet PO (08:51)
--- NOTE | 2019-10-03 11:59 | PC.SOCIAL ---
IMM Update Pg 2 of IMM updated with patient who verbalized understanding. Copy provided.
[2019-10-03] MEDS: LORazepam 2 mg Tablet PO (14:03)
[2019-10-03] MEDS: dextrose 5%-sod chloride 0.45% 1,000 ML 50 ML IV (15:41)
--- NOTE | 2019-10-03 18:11 | PM.PN ---
Subjective Subjective: Interval history: No acute evenst overnight. Needing ativan PRN. Continues to spike fever. Going upto 101 F. Agitated this evening inspite of getting Ativan. Vitals/I&O/Wt Last Vital Signs Temp 98.4 F 10/03/19 16:00 Pulse 119 H 10/03/19 16:00 Resp 20 H 10/03/19 16:00 BP 109/76 10/03/19 16:00 Pulse Ox 94 10/03/19 16:00 10/03/19 10/03/19 10/03/19 06:59 14:59 22:59 Intake Total 1162 300 / 300 Output Total 500 / 800 350 / 350 Balance 663 / 1213 -50 / -50 Physical Exam Narrative: EXAM NARRATIVE: GEN: Awake, alert and oriented, restless CVS: S1S@ N RS: CTA B/L except crackles over RUL Abd: Soft, nt/nd , bs+ STATION MANAGER: no focal neuro deficits Data : 10/03/19 04:47 10/03/19 04:47 Micro: Microbiology 10/02/19 13:03 Blood Culture - Preliminary Blood NEGATIVE TO DATE 10/02/19 12:58 Blood Culture - Preliminary Blood NEGATIVE TO DATE 10/01/19 21:40 Gram Stain - Final Sputum - Expectorated Sputum Sputum Culture - Preliminary 10/01/19 19:50 Urine Culture - Preliminary Urine,Voided A&P Assessment and plan (1) Sepsis: Status: Acute (2) Shortness of breath: Status: Acute (3) Alcoholic hepatitis: Status: Acute Qualifiers: Ascites presence: unspecified Qualified Code(s): K70.10 - Alcoholic hepatitis without ascites (4) Hyperbilirubinemia: Status: Acute (5) Cholelithiasis: Status: Acute (6) Alcohol intoxication: Status: Acute (7) Fever: Status: Acute (8) Direct hyperbilirubinemia: Status: Acute Additional A&P Information Sepsis secondary to unknown etiology at present: Criteria met with tachycardia, fever. CT abdomen and MRCP results aprreciated. B/c continues to spike fever and source of fever is not sure so will change Zosyn to imipenem. C/w Vanc and doxy. Bcx remain negative. Will get CT chest abd/pelvis w contrast. CT abdomen on admit concerning for foreign body in esophagus but can not r/o perf and mediastinitis or any collection. Can be b/c of acuet hepatitis but will not be that high ECHO to r/o vegetations though Bcx have remained negative. COVID-19 negative. Stop precautions. Check ESR, CRP, HENRY profile to rule out rheumatological cause of fever. Duoneb Q6h, budosenide BID Oxygen supplementation keeping saturation over 92% Guaifenesin as needed. Abnormal transaminases: Abdominal imaging appreciated. Transaminase improving but bilirubin continue to rise Hepatitis panel, HIV negative. tick panel awaited. ORVILLE C score?7.4 which puts him at intermediate risk. What [place] alcohol hepatitis score is 7 which is less than 9 so most likely will not help with corticosteroids. For now we will continue with supportive treatment with IV hydration, regular diet. Case discussed with dry heat cabinet attendant at. As per him as DF score is less than 32 for now it would be best to continue supportive treatment, alcohol abstinence and does not have any need of steroids. Alcohol intoxication: Ativan as per CIWA protocol. D5 NS at 50 cc/h. Continue oral thiamine and folic acid. Add Zyprexa for agitation. History of hiatal hernia repair No active exacerbation Would use Protonix 40 mg daily Full code Clear liquid diet DVT prophylaxis Lovenox Attestations Medical Necessity Statement*: Alcohol abuse, alcohol withdrawal, unexplained fevers, acute alcohol hepatitis Time Spent in Patient Care: Greater than 35 minutes (>than 50% of time spent in counselling and/or direct pt care on unit). Coding Level of Care Code Acute Back Tacker for [facility] Fwd Diagnoses Sepsis A41.9 Shortness of breath R06.02 Alcoholic hepatitis K70.10 Ascites presence: unspecified Hyperbilirubinemia E80.6 Cholelithiasis K80.20 Alcohol intoxication F10.929 Fever R50.9 Direct hyperbilirubinemia E80.6
[2019-10-03] MEDS: OLANZapine 10 mg VIAL 5 MG IM (18:46)
--- NOTE | 2019-10-03 18:52 | PC.NURSE ---
Patient confused trying to get out of bed, skin hot to touch checked temp 101.5, Dr Guzman notified, see new orders
[2019-10-03] MEDS: OLANZapine 5 mg ODT 2.5 MG PO (21:20)
[2019-10-03 21:23] LABS: C Reactive Protein 46.9 mg/L (0.0-4.9)
[2019-10-03 23:29] LABS: Vancomycin Trough 12.5 ug/mL (10-15)
[2019-10-03 23:53] LABS: Erythrocyte Sedimentation Rate 20 mm/hr (0-10)
[2019-10-04] VITALS (9 sets, daily range): BP systolic 101–121; BP diastolic 67–82; PULSE 59–109; RESP 16–20; TEMP 37.2–38.1; O2SAT 94–97
[2019-10-04 05:05] LABS: Basophils # 0.1 10^3/uL (0.0-0.1); Basophils % 0.9 %; Eosinophils # 0.1 10^3/uL (0.0-0.8); Eosinophils % 1.5 %; Hematocrit 36.9 % (42.0-52.0); Hemoglobin 12.8 g/dL (11.7-16.6); Lymphocytes # 0.9 10^3/uL (0.8-4.8); Mean Corpuscular HGB Conc 34.7 g/dL (30.0-36.0); Mean Corpuscular Hemoglobin 34.2 pg (28.0-34.0); Mean Corpuscular Volume 98.7 fL (80-94); Mean Platelet Volume 10.8 fL (7.4-10.4); Monocytes # 0.9 10^3/uL (0.2-0.9); Monocytes % 13.3 %; Neutrophils # 4.63 10^3/uL (1.8-7.7); Neutrophils % 69.7 %; Nucleated Red Blood Cells % 0 %; Platelet Count 96 10^3/cmm (130-400); Red Blood Count 3.74 10^6/uL (4.1-5.3); Red Cell Distribution Width 16.4 % (12.1-15.1); White Blood Count 6.6 10^3/uL (4.0-10.0)
[2019-10-04 05:30] LABS: Alanine Aminotransferase 30 U/L (0-41); Albumin Level 2.7 g/dL (3.5-5.2); Alkaline Phosphatase 99 IU/L (40-130); Anion Gap 12.4 (5-19); Aspartate Amino Transferase 77 U/L (0-40); Blood Urea Nitrogen 6 mg/dL (6-20); Calcium 7.9 mg/dL (8.5-10.5); Carbon Dioxide 27 mmol/L (22-29); Chloride 104 mmol/L (98-107); Glomerular Filtration Rate 116.7 mL/min (90-130); Glucose 91 mg/dL (65-115); Osmolality Calculated 285 mOsm/kg (285-295); Potassium 3.4 mmol/L (3.5-5.1); Sodium 140 mmol/L (136-145); Total Protein 4.7 g/dL (6.6-8.7)
[2019-10-04 05:31] LABS: Total Bilirubin 16.5 mg/dL (0.15-1.2)
[2019-10-04 05:41] LABS: Procalcitonin 1.65 ng/mL (0-0.5)
[2019-10-04] MEDS: dextrose 5%-sod chloride 0.45% 1,000 ML 50 ML IV (06:03)
[2019-10-04] MEDS: sucralfate 1 gm/10 mL Oral Liq UDC PO ×4 (06:08→20:52)
--- NOTE | 2019-10-04 07:00 | CT_ITS ---
WS: [id number] CTA CHEST WITH CT ABDOMEN AND PELVIS. HISTORY: Unexplained fevers. Jaundice. TECHNIQUE: CT angiogram is performed through the chest. Additional imaging is performed through the a bdomen and pelvis with IV contrast. Sagittal and coronal reformats have been submitted. MIP imaging also reviewed. All CT scans at [facility] use at least one of these dose optimization tech niques: automated exposure control; mA and/or kV adjustment per patient size (includes targeted exams where dose is matched to clinical indication); or iterative reconstruction. Contrast: Omnipaque 350; 95 cc IV. DLP: 3892.52 mGy.cm COMPARISON: 09/30/2019. Chest CTA: Normal pulmonary artery. There are no emboli identified. Atherosclerosis of aorta is mild. No aneurysm. Normal size heart. Mild hyperexpansion of the lungs. Small bilateral pleural effusions, slightly greater on the RIGHT with atelectasis. No pneumonia. No mediastinal or hilar adenopathy. Mi ld anterior wedging of T7 and T11. Abdomen CT: Moderate to severe hepatomegaly and hepatic steatosis. No bile duct dilatation. Portal ve in is patent. Mildly hydropic gallbladder measuring 4.5 cm transversely. Diffuse pericholecystic flui d. Patient has known stones. Not a lot of inflammation surrounding the gallbladder but there is edema . Common bile duct is normal size. Spleen is negative. Pancreas is normal. Normal adrenal glands. Ath erosclerosis aorta. No adenopathy. Moderate size hiatal hernia. Small amount of edema along the perirenal fascia and along the RIGHT par acolic gutter. No GI tract obstruction. Appendix is normal. No acute inflammatory process. Pelvic CT: There is a small amount of free fluid in the pelvis. Patel catheter is present. CT/CT angio chest w abd pel w con IMPRESSION: 1. Moderately severe hepatomegaly and hepatic steatosis. 2. No bile duct dilatation. 3. Minimally hydropic gallbladder with diffuse gallbladder wall edema. There i s not a lot of adjacent stranding in the soft tissue. Patient has known choleli thiasis. Consider cholecystitis and hepatocellular disease/acute hepatitis as p ossible etiologies. 4. Normal appendix. 5. Small bilateral pleural effusions, RIGHT greater than LEFT. 6. No pulmonary embolism. 7. Small amount of free fluid in the pelvis.
[2019-10-04] MEDS: LORazepam 2 mg/mL INJ 1 mL IVP ×5 (07:55→18:31)
[2019-10-04] MEDS: iohexol 350 mg/mL 100 mL Btl IV ×2 (08:28)
[2019-10-04] MEDS: enoxaparin 40 mg/0.4 mL Syringe SUBCUT (09:01)
[2019-10-04] MEDS: pantoprazole DR 40 mg Tablet PO (09:02)
[2019-10-04] MEDS: folic acid 1 mg Tablet PO (09:02)
[2019-10-04] MEDS: multivitamin therapeutic Tablet 1 TAB PO (09:02)
[2019-10-04] MEDS: thiamine 100 mg Tablet PO (09:02)
[2019-10-04] MEDS: doxycycline 100 mg Tablet PO ×2 (09:02→17:41)
--- NOTE | 2019-10-04 10:25 | P.CONIM_ITS ---
Providers/Reason For Consult Consulting Physican/Specialty*: Nagi Rudd MD Reason for Consult*: Cholelithiasis Attending Physician: Robyn Alejandro MD Primary Care Provider: DOCTOR NOT ON FILE History of Present Illness History of Present Illness Chief Complaint: Shortness of breath and fever History of present illness: Mr. Angelo Noonan is a 54 year old male presented to the hospital with worsening respiratory symptoms and he was concerned that he had COVID-19, patien t was admitted to the hospitalist service for further evaluation and work-up, patient is well-known that he has been drinking heavily 7 to 8, cans of beer every day which are 24 ounces. Further evaluation took place and patient undergone different imaging studies that showed hepatopathy likely related to his heavy alcohol ingestion and an incidental finding showed gallbladder stones, patient has been having elevated LFTs and clinically has been jaundiced. Different studies were done and showed no evidence of obstructive jaundice yet on a recent CT scan that was done today there was a concern about gallbladder wall edema and hospitalist consulted surgery for further evaluation and potential management. 09/30/[address] scan of the abdomen and pelvis: IMPRESSION: 1. A partially visualized hyperdensity is seen in the distal esophagus, measuring at least 12 x 5 mm. This could represent pill, however, a foreign body cannot be excluded. Please correlate clinically. 2. Hydropic gallbladder with possible cholelithiasis without pericholecystic inflammatory changes. 3. Enlarged, fatty liver. 4. Moderate hiatal hernia. U/S GB 09/30/19 1. Mildly hydropic gallbladder with cholelithiasis. No wall thickening or pericholecystic fluid. 2. No bile duct dilatation. 3. Mild hepatic steatosis and hepatomegaly. 10/01/19 1. Mildly hydropic gallbladder with cholelithiasis. No evidence for acute cholecystitis otherwise. 2. Moderate hepatic steatosis and hepatomegaly. 3. Common bile duct is not well visualized on this examination but there is no intrahepatic or extra hepatic duct dilatation. 10/04/19 IMPRESSION: 1. Moderately severe hepatomegaly and hepatic steatosis. 2. No bile duct dilatation. 3. Minimally hydropic gallbladder with diffuse gallbladder wall edema. There is not a lot of adjacent stranding in the soft tissue. Patient has known cholelithiasis. Consider cholecystitis and hepatocellular disease/acute hepatitis as possible etiologies. 4. Normal appendix. 5. Small bilateral pleural effusions, RIGHT greater than LEFT. 6. No pulmonary embolism. 7. Small amount of free fluid in the pelvis. Review of Systems 2 General: Reports: 10 or more systems reviewed and unremarkable except in HPI and below Meds/Allergies Home Medications and Allergies Allergies Allergy/AdvReac Type Severity Reaction Status Date / Time No Known Allergies Allergy Verified 10/04/19 11:55 Current Medications Current Medications Generic Name Dose Route Start Last Admin Trade Name Freq PRN Reason Stop Dose Admin Doxycycline Monohydrate 100 mg 10/02/19 18:00 10/04/19 09:02 Vibramycin PO 100 mg BID CAROLYN Administration Protocol Enoxaparin Sodium 40 mg 09/30/19 07:00 10/04/19 09:01 Lovenox SUBCUT 40 mg Q24H CAROLYN Administration Folic Acid 1 mg 09/30/19 09:00 10/04/19 09:02 Folic Acid PO 1 mg DAILY CAROLYN Administration Guaifenesin 200 mg 09/30/19 17:57 10/02/19 11:18 Robitussin Oral Liq PO 200 mg Q4H PRN Administration COUGH AND CONGESTION Dextrose/Sodium Chloride 1,000 mls @ 50 mls/hr 10/01/19 10:45 10/04/19 06:03 Dextrose 5%-Sod Chloride 0.45% IV 50 mls/hr .Q20H CAROLYN Administration Vancomycin HCl 1,500 mg/ 250 mls @ 250 mls/hr 10/01/19 20:00 10/04/19 06:29 Sodium Chloride IV 250 mls/hr Q8H CAROLYN Administration Imipenem/Cilastatin Sodium 500 100 mls @ 200 mls/hr 10/03/19 18:30 10/04/19 06:03 mg/ Sodium Chloride IV 200 mls/hr Q6H CAROLYN Administration Protocol Lorazepam 2 mg 09/30/19 12:00 10/03/19 14:03 Ativan PO 2 mg Q4H PRN Administration WITHDRAWAL Protocol Lorazepam 2 mg 09/30/19 18:02 10/04/19 07:55 Ativan IVP 2 mg Q2H PRN Administration ANXIETY Multivitamins Therapeutic 1 tab 09/30/19 09:00 10/04/19 09:02 Multivitamin Tab PO 1 tab DAILY CAROLYN Administration Olanzapine 2.5 mg 10/03/19 21:00 10/03/19 21:20 Zyprexa Zydis PO 2.5 mg BEDTIME CAROLYN Administration Ondansetron HCl 4 mg 09/30/19 21:24 10/03/19 18:39 Zofran IVP 4 mg Q8H PRN Administration NAUSEA AND VOMITING Pantoprazole Sodium 40 mg 09/30/19 09:00 10/04/19 09:02 Protonix PO 40 mg DAILY CAROLYN Administration Promethazine HCl 25 mg 09/30/19 21:24 10/02/19 18:45 Phenergan PO 25 mg Q6H PRN Administration persistent nausea Fluticasone/Salmeterol 1 puff 09/30/19 20:00 10/04/19 09:41 Advair Diskus 100-50 INHALATION 1 puff BID.RESPIRATORY CAROLYN Administration Sucralfate 1 gm 09/30/19 17:00 10/04/19 06:08 Carafate Oral Liq PO 1 gm AC&BEDTIME CAROLYN Administration Thiamine Mononitrate 100 mg 09/30/19 09:00 10/04/19 09:02 Vitamin B-1 PO 100 mg DAILY CAROLYN Administration Tiotropium [place] 18 mcg 10/01/19 08:00 10/04/19 09:41 Spiriva INHALATION 1 puff DAILY.RESPIRATORY CAROLYN Administration PFSH Acute PFSH: Medical History Alcohol abuse Hiatal hernia Surgical History H/O knee surgery H/O shoulder surgery History of esophageal hernia repair Family History Denies family history of Lung disease Hypertension Social History Smoking and tobacco status: light tobacco smoker cigarettes [ Other cigarette details: 2 to 3 cigarettes a day ] Alcohol intake: current Alcohol type: beer Alcohol use comment: 7 to 8 cans of beer 24 ounces per can Substance/Drug Use: unknown Household members: family Housing: House Vitals/I&O/Wt Last Vital Signs Temp 99.8 F H 10/04/19 08:00 Pulse 101 H 10/04/19 09:47 Resp 16 10/04/19 09:46 BP 121/82 10/04/19 08:00 Pulse Ox 95 10/04/19 09:46 10/03/19 10/04/19 10/04/19 22:59 06:59 14:59 Intake Total 480 / 780 1228.333 / 2008.333 240 / 240 Output Total 600 / 950 480 / 1430 Balance -120 / -170 748.333 / 578.333 240 / 240 Physical Exam Narrative: EXAM NARRATIVE: Patient is conscious alert oriented X3 BMI 24.4 Head and neck examination PERRLA no masses no cervical lymphadenopathy/ jaundiced including bilateral sclerae and skin Cardiac examination audible S1-S2 no murmurs no gallops no arrhythmias Chest bilateral rhonchi and wheezes particularly expiratory Abdomen nontender nondistended soft no organomegaly guarding or rigidity/no signs of peritonitis Negative Vital's sign Extremities no cyanosis no clubbing no edema Urinary Catheter Management^: Patel: Cath Placed During This Visit: yes Reason for Continuing Indwelling Catheter: Acute Urinary Retention or Obstruction Urinary Catheter Date of Insertion: 10/03/19 Urinary Catheter Time of Insertion: 16:49 Data Micro: Micro: Microbiology 10/01/19 21:40 Gram Stain - Final Sputum - Expector ated Sputum Sputum Culture - F inal 10/01/19 19:50 Urine Culture - Fi nal Urine,Voided 10/04/19 03:45 Blood Culture - Pr eliminary Blood SPECIMEN [facility] 10/04/19 03:45 Blood Culture - Pr eliminary Blood SPECIMEN [facility] 10/02/19 13:03 Blood Culture - Pr eliminary Blood NEGATIVE TO CLARI E 10/02/19 12:58 Blood Culture - Pr eliminary Blood NEGATIVE TO CLARI E A&P Assessment and plan (1) Cholelithiasis: After thorough history physical examination and reviewing the chart and images with my personal interpretation I do not believe there is a need for acute surgical intervention at this point, clinically there is no tenderness ap preciated at the right upper quadrant, if continues to be a concern that the gallbladder would be the cause of patient's fever which I doubt it I would recommend to have an interventional radiology for cholecystostomy tube for potential drainage and obtaining cultures and sensitivity as the patient is not an appropriate surgical candidate with a MELD score of 19. I do believe that the patient's symptoms not related to the incidental finding of the cholelithiasis.I am more concerned that the patient has an underlying cholestasis and can be responsible for an element of cholangitis. If further imaging would to help I would recommend CT scan of the liver with washout versus an MRI of the liver with IV contrast. Even if the patient has an acute calculus cholecystitis which it is not the case in the setting, he would be not a good or safe candidate for any surgical intervention at this point. I Do recommend highly that the patient would be further taking care of by her pathology service sooner the better. Thank you for consulting general surgery to participate taking care Mr. Noonan Status: Acute Consult Attestations Medical Necessity Statement: Medical necessity care is expected to cross 2 midnights Time Spent in Patient Care: 16 - 35 minutes (>than 50% of time spent in counselling and/or direct pt care on unit) . Coding Level of Care Code Acute Babbitt Spinner for Caleb Zhong Diagnoses Cholelithiasis K80.20
[2019-10-04] MEDS: ondansetron 2 mg/ML SDV 2 mL 4 MG IVP (11:23)
[2019-10-04 17:20] LABS: RMSF IGG NOT DETECTED; RMSF IGM NOT DETECTED
--- NOTE | 2019-10-04 17:27 | P.TS_ITS ---
Transfer Summary Providers Date of Admission: 09/30/19 18:16 Date of Discharge: 10/04/19 Attending Provider at Admission: Kaylie Riggins MD Attending Provider at Transfer: Robyn Alejandro MD Anticipated Date of Transfer: Anticipated date of transfer: 10/04/19 Receiving Facility & Provider: Receiving Provider: [] Receiving facility: [[facility]] Diagnoses at Discharge Discharge Diagnosis (1) Alcoholic hepatitis: Status: Acute Qualifiers: Ascites presence: unspecified Qualified Code(s): K70.10 - Alcoholic hepatitis without ascites (2) Alcohol withdrawal: Status: Acute Qualifiers: Complication of substance-induced condition: with delirium Qualified Code(s): F10.231 - Alcohol dependence with withdrawal delirium (3) Alcohol intoxication: Status: Acute Qualifiers: Complication of substance-induced condition: with delirium Qualified Code(s): F10.921 - Alcohol use, unspecified with intoxication delirium (4) Fever: Status: Acute Qualifiers: Fever type: unspecified Qualified Code(s): R50.9 - Fever, unspecified (5) Cholelithiasis: Status: Acute Qualifiers: Cholelithiasis location: gallbladder Cholecystitis presence: without cholecystitis Biliary obstruction: without biliary obstruction Qualified Code(s): K80.20 - Calculus of gallbladder without cholecystitis without obstruction (6) Direct hyperbilirubinemia: Status: Acute Reason for Visit Reason for Visit: fever Hospital Course Discharge Summary: From h&P: Admitted on 09/30/19. Angelo Noonan is a 54 year old male who does not carry significant past medical history other than alcohol abuse came in for alcohol intoxication. Patient is stating that his last alcoholic drink was around afternoon and then he does not remember what happened, he states probably his daughter called EMS to take him to the hospital. Patient is stating that he is going through social stressors, going through divorce, he was supposed to go to [place] to see his biological mother but could not go. Lately for last 2 months he has started drinking heavily. He is drinking 7 to 8 cans of beer every day which are 24 ounces. Diagnostics in the ER revealed t.bili 5.2, AST 189, ALT 54, GGT 953, ALP 191. During course of admission, his transaminases have trended down to Ast 77/ALT30, ALP 99, however T. bili continues to trend up to 16.5, mainly direct bili. Tylenol level <[address] abdomen/pelvis u baljeet admission with Hydropic gallbladder with possible cholelithiasis without pericholecystic inflammatory changes. GB ultrasound without wall thickening or pericholecystic fluid. MRCP on 09/30 Mildly hydropic gallbladder with cholelithiasis moderate enlarged measuring 20 cm in length. Changes of diffuse hepatic steatosis. Portal vein is patent. Common bile duct is never well seen on this examination due to motion. Common bile duct is also not dilated on the recent ultrasound or CT evaluation. There is no intrahepatic bile duct dilatation. Negative hep A IgM, HbSAG, hep c ab. Hiv negative. Tick panel negative for lyme and RMSF. Ehrlichia serology pending.. Hospital course also notable for daily fever up to 102F, COVID 19 ruled out by negative PCR on 09/30. No infiltrates on CT chest. General surgery consulted due to concerns for cholecytitis vs cholangitis given ongoing fever. Recommended no acute surgical intervention, however if continues to be a persisting concern, recommend to have an interventional radiology for cholecystostomy tube for potential drainage and obtaining cultures and sensitivity as the patient is not an appropriate surgical candidate with a MELD score of 19. He has been on rx emprically with Zosyn--> broadened to imipenem, vancomycin and doxycycline at this point without any resolution of fever. No obvious source of infection has been identified apart possibly gall bladder. fever may be related to alcoholic hepatitis vs withdrawal, however given rapidly worsening bilirubin, patient will be best managed in conjunction with GI/hepatology services, whoch we do not have available here at out hospital > he is being transferred to [facility] in [facility] for the same. He is awake, alert at time of exam today, however was noted to be quite agitated even with scheduled ativan yesterday for which zyprexa was added with improvement. Physical Exam Narrative: EXAM NARRATIVE: GEN: Awake, alert, no acute distress CVS: S1S2 N RS: CTA B/L Abd: Soft, nt/nd , bs+ WHEEL FITTER: no focal neuro deficits Urinary Catheter Management^: Patel: Cath Placed During This Visit: yes Reason for Continuing Indwelling Catheter: Acute Urinary Retention or Obstruction Urinary Catheter Date of Insertion: 10/03/19 Urinary Catheter Time of Insertion: 16:49 TS Data Data Completed and Pending: Completed Studies During Hospitalization Category Date Time Status CT abdomen pelvis w con* [id number] Urge nt Cat Scan 09/30/19 01:[address] angio chest w abd pel w con Rout ine Cat Scan 10/04/19 07:00 Completed XR chest 1V perla ble [id number] Routine Exams 09/30/19 17:57 Completed MR MRCP [id number] Nitza jack MRI 10/01/19 17:57 Completed US gall bladder 7 [id number] Urgent Ultrasound 09/30/19 01:27 Completed Pending at discharge Category Date Time Status Blood Culture AM LABS Lab 10/04/19 03:45 Results Blood Culture Sta t Lab 09/30/19 18:52 Results Blood Culture Sta t Lab 10/02/19 13:03 Results [facility]ENRY Profile R outine Lab 10/03/19 20:30 Received Procalcitonin AM LABS Lab 10/05/19 04:00 Ordered Procalcitonin AM LABS Lab 10/06/19 04:00 Ordered Tick Panel Stat Lab 10/01/19 03:50 Results Labs from last 24 hours 10/04/19 10/04/19 10/04/19 03:45 03:45 03:45 WBC 6.6 RBC 3.74 L Hgb 12.8 Hct 36.9 L MCV 98.7 H MCH 34.2 H MCHC 34.7 RDW 16.4 H Plt Count 96 L MPV 10.8 H Neut % (Auto) 69.7 Lymph % (Auto) 14.0 [place] % (Auto) 13.3 Eos % (Auto) 1.5 Baso % (Auto) 0.9 Neut # (Auto) 4.63 Lymph # (Auto) 0.9 [place] # (Auto) 0.9 Eos # (Auto) 0.1 Baso # (Auto) 0.1 Nucleated RBC % (a uto) 0 Nucleated RBCs # 0.0 ESR Sodium 140 Potassium 3.4 L Chloride 104 Carbon Dioxide 27 Anion Gap 12.4 BUN 6 Creatinine 0.7 GFR Calculation 116.7 Glucose 91 Calculated Osmolal ity 285 Calcium 7.9 L Total Bilirubin 16.5 H* AST 77 H ALT 30 Alkaline Phosphata se 99 C-Reactive Protein Total Protein 4.7 L Albumin 2.7 L Globulin 2.0 Procalcitonin 1.65 H Vancomycin Trough Rickettsia IgG Ab Rickettsia IgM Ab 10/03/19 10/03/19 10/03/19 23:01 20:30 20:30 WBC RBC Hgb Hct MCV MCH MCHC RDW Plt Count MPV Neut % (Auto) Lymph % (Auto) [place] % (Auto) Eos % (Auto) Baso % (Auto) Neut # (Auto) Lymph # (Auto) [place] # (Auto) Eos # (Auto) Baso # (Auto) Nucleated RBC % (a uto) Nucleated RBCs # ESR 20 H Sodium Potassium Chloride Carbon Dioxide Anion Gap BUN Creatinine GFR Calculation Glucose Calculated Osmolal ity Calcium Total Bilirubin AST ALT Alkaline Phosphata se C-Reactive Protein 46.9 H Total Protein Albumin Globulin Procalcitonin Vancomycin Trough 12.5 Rickettsia IgG Ab Rickettsia IgM Ab 10/01/19 03:50 WBC RBC Hgb Hct MCV MCH MCHC RDW Plt Count MPV Neut % (Auto) Lymph % (Auto) [place] % (Auto) Eos % (Auto) Baso % (Auto) Neut # (Auto) Lymph # (Auto) [place] # (Auto) Eos # (Auto) Baso # (Auto) Nucleated RBC % (a uto) Nucleated RBCs # ESR Sodium Potassium Chloride Carbon Dioxide Anion Gap BUN Creatinine GFR Calculation Glucose Calculated Osmolal ity Calcium Total Bilirubin AST ALT Alkaline Phosphata se C-Reactive Protein Total Protein Albumin Globulin Procalcitonin Vancomycin Trough Rickettsia IgG Ab Not detected Rickettsia IgM Ab Not detected Vitals: Last Vital Signs Temp 100.6 F H 10/04/19 16:00 Pulse 59 L 10/04/19 16:00 Resp 20 H 10/04/19 16:00 BP 101/67 10/04/19 16:00 Pulse Ox 97 10/04/19 16:00 TS Medications Medications Active Medications Doxycycline Monohydrate (Vibramycin) 100 mg PO BID [facility]; Protocol Last Admin: 10/04/19 09:02 Dose: 100 mg Documented by: Enoxaparin Sodium (Lovenox) 40 mg SUBCUT Q24H [facility] Last Admin: 10/04/19 09:01 Dose: 40 mg Documented by: Folic Acid (Folic Acid) 1 mg PO DAILY [facility] Last Admin: 10/04/19 09:02 Dose: 1 mg Documented by: Guaifenesin (Robitussin Oral Liq) 200 mg PO Q4H PRN PRN Reason: COUGH AND CONGESTION Last Admin: 10/02/19 11:18 Dose: 200 mg Documented by: Dextrose/Sodium Chloride (Dextrose 5%-Sod Chloride 0.45%) 1,000 mls @ 50 mls/hr IV .Q20H [facility] Last Admin: 10/04/19 06:03 Dose: 50 mls/hr Documented by: Vancomycin HCl 1,500 mg/ (Sodium Chloride) 250 mls @ 250 mls/hr IV Q8H [facility] Last Admin: 10/04/19 16:04 Dose: 250 mls/hr Documented by: Imipenem/Cilastatin Sodium 500 (mg/ Sodium Chloride) 100 mls @ 200 mls/hr IV Q6H [facility]; Protocol Last Admin: 10/04/19 12:19 Dose: 200 mls/hr Documented by: Lorazepam (Ativan) 2 mg PO Q4H PRN; Protocol PRN Reason: WITHDRAWAL Last Admin: 10/03/19 14:03 Dose: 2 mg Documented by: Lorazepam (Ativan) 2 mg IVP Q2H PRN PRN Reason: ANXIETY Last Admin: 10/04/19 16:09 Dose: 2 mg Documented by: Multivitamins Therapeutic (Multivitamin Tab) 1 tab PO DAILY [facility] Last Admin: 10/04/19 09:02 Dose: 1 tab Documented by: Olanzapine (Zyprexa Zydis) 2.5 mg PO BEDTIME [facility] Last Admin: 10/03/19 21:20 Dose: 2.5 mg Documented by: Ondansetron HCl (Zofran) 4 mg IVP Q8H PRN PRN Reason: NAUSEA AND VOMITING Last Admin: 10/04/19 11:23 Dose: 4 mg Documented by: Pantoprazole Sodium (Protonix) 40 mg PO DAILY [facility] Last Admin: 10/04/19 09:02 Dose: 40 mg Documented by: Promethazine HCl (Phenergan) 25 mg PO Q6H PRN PRN Reason: persistent nausea Last Admin: 10/02/19 18:45 Dose: 25 mg Documented by: Fluticasone/Salmeterol (Advair Diskus 100-50) 1 puff INHALATION BID.RESPIRATORY [facility] Last Admin: 10/04/19 09:41 Dose: 1 puff Documented by: Sucralfate (Carafate Oral Liq) 1 gm PO AC&BEDTIME [facility] Last Admin: 10/04/19 12:20 Dose: 1 gm Documented by: Thiamine Mononitrate (Vitamin B-1) 100 mg PO DAILY [facility] Last Admin: 10/04/19 09:02 Dose: 100 mg Documented by: Tiotropium [place] (Spiriva) 18 mcg INHALATION DAILY.RESPIRATORY [facility] Last Admin: 10/04/19 09:41 Dose: 1 puff Documented by: Discharge Plan Discharge Patient Disposition: Xfer Other Condition: Stable Transfer Attestations Time Spent in Transfer Care*: greater than 30 min Specific Discharge Activities: Specific discharge activities: discussing with pcp/other providers, discussing with therapeutic case manager/social workers/dc planners, documenting/other paperwork and evaluating patient/reviewing data Status at Transfer: Cognitive status at transfer: mildly impaired cognition , Behavioral status at transfer: cooperative and can be uncooperative , Functional status at transfer: independent ambulation Overall status at transfer: patient is not back to baseline Quality Metrics Clinical Quality Measures: During this hospital stay, did patient experience: None Coding Level of Care Code Acute Clay Temperer for g Fwd Diagnoses Alcoholic hepatitis K70.10 Ascites presence: unspecified Alcohol withdrawal F10.231 Complication of substance-induced condition: with delirium Alcohol intoxication F10.921 Complication of substance-induced condition: with delirium Fever R50.9 Fever type: unspecified Cholelithiasis K80.20 Cholelithiasis location: gallbladder Cholecystitis presence: without cholecystitis Biliary obstruction: without biliary obstruction Direct hyperbilirubinemia E80.6
[2019-10-04 17:39] LABS: E. Chaffeensis AB IGG <1:64; E. Chaffeensis AB IGM <1:20
[2019-10-04] MEDS: OLANZapine 5 mg ODT 2.5 MG PO (20:51)
[2019-10-04] MEDS: LORazepam 2 mg Tablet PO (20:54)
[2019-10-05] VITALS (7 sets, daily range): BP systolic 96–120; BP diastolic 64–87; PULSE 83–107; RESP 16–22; TEMP 36.5–37.5; O2SAT 93–96
[2019-10-05] MEDS: LORazepam 2 mg Tablet PO ×2 (03:05→06:17)
[2019-10-05 05:37] LABS: Procalcitonin 3.24 ng/mL (0-0.5)
[2019-10-05] MEDS: sucralfate 1 gm/10 mL Oral Liq UDC PO ×4 (06:18→20:04)
[2019-10-05] MEDS: LORazepam 2 mg/mL INJ 1 mL IVP ×4 (09:00→22:41)
[2019-10-05] MEDS: folic acid 1 mg Tablet PO (09:03)
[2019-10-05] MEDS: thiamine 100 mg Tablet PO (09:03)
[2019-10-05] MEDS: enoxaparin 40 mg/0.4 mL Syringe SUBCUT (09:03)
[2019-10-05] MEDS: pantoprazole DR 40 mg Tablet PO (09:03)
[2019-10-05] MEDS: multivitamin therapeutic Tablet 1 TAB PO (09:03)
[2019-10-05] MEDS: doxycycline 100 mg Tablet PO (09:03)
--- NOTE | 2019-10-05 14:20 | PC.NURSE ---
Patients brother Gennaro and sister Anastasiya called, asked patient for permission to talk to them he gave permission and he also wants them added to his chart along with his parents Toni and Coty Noonan
--- NOTE | 2019-10-05 16:17 | PM.PN ---
Subjective Subjective: Interval history: no acute overnight events. Tmax 100.6F at 4pm yesetrday, afebrile since. More calm today than n previous occasions. Lab break today. Surgical consult appreciated. Awaiting transfer to [facility]. Medications: Reviewed: Yes Vitals/I&O/Wt Last Vital Signs Temp 98.8 F 10/05/19 15:30 Pulse 86 10/05/19 15:30 Resp 18 10/05/19 15:30 BP 120/74 10/05/19 15:30 Pulse Ox 96 10/05/19 15:30 10/05/19 10/05/19 10/05/19 06:59 14:59 22:59 Intake Total 830 / 2630 990 / 990 Output Total 540 / 1440 Balance 290 / 1190 990 / 990 Physical Exam Narrative: EXAM NARRATIVE: GEN: Asleep when seen, not woken up for exam at this time. he was alert and awake just prior to sleeping few minutes ago. CVS: S1S2 N RS: CTA B/L Abd: not palpated today Urinary Catheter Management^: Patel: Cath Placed During This Visit: yes Reason for Continuing Indwelling Catheter: Acute Urinary Retention or Obstruction Urinary Catheter Date of Insertion: 10/03/19 Urinary Catheter Time of Insertion: 16:49 Data : 10/04/19 03:45 10/04/19 03:45 Micro: Microbiology 10/04/19 03:45 Blood Culture - Preliminary Blood NEGATIVE TO DATE 10/04/19 03:45 Blood Culture - Preliminary Blood NEGATIVE TO DATE A&P Assessment and plan (1) Alcoholic hepatitis: Status: Acute Qualifiers: Ascites presence: unspecified Qualified Code(s): K70.10 - Alcoholic hepatitis without ascites (2) Alcohol withdrawal: Status: Acute Qualifiers: Complication of substance-induced condition: with delirium Qualified Code(s): F10.231 - Alcohol dependence with withdrawal delirium (3) Alcohol intoxication: Status: Acute Qualifiers: Complication of substance-induced condition: with delirium Qualified Code(s): F10.921 - Alcohol use, unspecified with intoxication delirium (4) Fever: Status: Acute Qualifiers: Fever type: unspecified Qualified Code(s): R50.9 - Fever, unspecified (5) Cholelithiasis: Status: Acute Qualifiers: Cholelithiasis location: gallbladder Cholecystitis presence: without cholecystitis Biliary obstruction: without biliary obstruction Qualified Code(s): K80.20 - Calculus of gallbladder without cholecystitis without obstruction (6) Direct hyperbilirubinemia: Status: Acute Additional A&P Information Sepsis secondary to unclear etiology: Criteria met with tachycardia, fever. CT abdomen and MRCP results, surgicak consult aprreciated. blood cx negative to date No consolidation on Ct chest , no PE COVID-19 negative. HENRY profile pending may be related to alcoholic hepatitis vs withdrawal Changed to imipenem yesetrday. D/c vancomycin iv and po doxycycline Abnormal transaminases: Abdominal imaging appreciated. Transaminase improving but bilirubin continue to rise Hepatitis panel, HIV negative. tick panel negative for lyme, RMSF. awaited Ehrlichia . Awaiting transfer to [facility] for further GI/hepatology evaluation Alcohol intoxication: Ativan as per [facility]WA protocol. D5 NS at 50 cc/h. Continue oral thiamine and folic acid. Added Zyprexa for agitation, much better controlled now. History of hiatal hernia repair No active exacerbation Would use Protonix 40 mg daily Full code GI soft DVT prophylaxis Lovenox Attestations Medical Necessity Statement*: awaiting transfer to [facility] Coding Level of Care Code Acute Glycerin Supervisor for Chg Fwd Diagnoses Alcoholic hepatitis K70.10 Ascites presence: unspecified Alcohol withdrawal F10.231 Complication of substance-induced condition: with delirium Alcohol intoxication F10.921 Complication of substance-induced condition: with delirium Fever R50.9 Fever type: unspecified Cholelithiasis K80.20 Cholelithiasis location: gallbladder Cholecystitis presence: without cholecystitis Biliary obstruction: without biliary obstruction Direct hyperbilirubinemia E80.6
[2019-10-05] MEDS: ondansetron 2 mg/ML SDV 2 mL 4 MG IVP (16:48)
[2019-10-05] MEDS: dextrose 5%-sod chloride 0.45% 1,000 ML 50 ML IV (18:31)
[2019-10-05] MEDS: OLANZapine 5 mg ODT 2.5 MG PO (20:04)
[2019-10-05] MEDS: promethazine 25 mg Tablet PO (20:04)
[2019-10-06] VITALS: BP 124/77; PULSE 107; RESP 24; TEMP 37; O2SAT 95
[2019-10-06 04:00] VITALS: BP 106/69; PULSE 105; RESP 20; TEMP 37.3; O2SAT 93
[2019-10-06 05:02] LABS: Basophils # 0.1 10^3/uL (0.0-0.1); Basophils % 0.8 %; Eosinophils # 0.1 10^3/uL (0.0-0.8); Eosinophils % 1.8 %; Hematocrit 32.8 % (42.0-52.0); Hemoglobin 11.5 g/dL (11.7-16.6); Lymphocytes # 0.6 10^3/uL (0.8-4.8); Mean Corpuscular HGB Conc 35.1 g/dL (30.0-36.0); Mean Platelet Volume 10.3 fL (7.4-10.4); Monocytes # 1.1 10^3/uL (0.2-0.9); Monocytes % 15.9 %; Neutrophils # 4.73 10^3/uL (1.8-7.7); Neutrophils % 71.7 %; Nucleated Red Blood Cells % 0 %; Platelet Count 132 10^3/cmm (130-400); Red Blood Count 3.38 10^6/uL (4.1-5.3); Red Cell Distribution Width 17.6 % (12.1-15.1); White Blood Count 6.6 10^3/uL (4.0-10.0)
[2019-10-06 05:15] LABS: INR 1.48 (0.8-1.2)
[2019-10-06 05:19] LABS: Ammonia 53 umol/L (16-60)
[2019-10-06 05:23] LABS: Alanine Aminotransferase 22 U/L (0-41); Albumin Level 2.5 g/dL (3.5-5.2); Alkaline Phosphatase 96 IU/L (40-130); Anion Gap 14.9 (5-19); Aspartate Amino Transferase 73 U/L (0-40); Blood Urea Nitrogen 21 mg/dL (6-20); Calcium 7.9 mg/dL (8.5-10.5); Carbon Dioxide 22 mmol/L (22-29); Chloride 104 mmol/L (98-107); Globulin 2.1 g/dL (1.3-4.6); Glomerular Filtration Rate 20.2 mL/min (90-130); Glucose 105 mg/dL (65-115); Osmolality Calculated 283 mOsm/kg (285-295); Sodium 138 mmol/L (136-145); Total Protein 4.6 g/dL (6.6-8.7)
[2019-10-06 05:38] LABS: Potassium 2.9 mmol/L (3.5-5.1); Total Bilirubin 19.6 mg/dL (0.15-1.2)
[2019-10-06 06:07] LABS: Procalcitonin 3.08 ng/mL (0-0.5)
[2019-10-06 07:29] LABS: Magnesium 1.4 mg/dL (1.7-2.3); Phosphorus 1.9 mg/dL (2.5-4.5)
[2019-10-06] MEDS: lidocaine 1% INJ 20 mL 5 ML IV (07:47)
[2019-10-06 08:00] VITALS: BP 118/80; PULSE 91; RESP 16; TEMP 37.3; O2SAT 93
[2019-10-06] MEDS: potassium chloride premix 40 MEQ/100 ML PREMIX 25 MEQ IV (08:09)
[2019-10-06] MEDS: thiamine 100 mg Tablet PO (08:10)
[2019-10-06] MEDS: pantoprazole DR 40 mg Tablet PO (08:10)
[2019-10-06] MEDS: lactulose oral liq 20 gm/30 mL UDC 10 GM PO (08:10)
[2019-10-06] MEDS: enoxaparin 40 mg/0.4 mL Syringe SUBCUT (08:10)
[2019-10-06] MEDS: folic acid 1 mg Tablet PO (08:10)
[2019-10-06] MEDS: multivitamin therapeutic Tablet 1 TAB PO (08:10)
[2019-10-06 09:39] VITALS: PULSE 91; RESP 16; O2SAT 93
[2019-10-06] MEDS: LORazepam 2 mg/mL INJ 1 mL IVP ×2 (09:40→12:50)
[2019-10-06] MEDS: ondansetron 2 mg/ML SDV 2 mL 4 MG IVP (09:40)
[2019-10-06] MEDS: guaiFENesin 100 mg/5 mL UDC 10 mL 200 MG PO (09:41)
[2019-10-06] MEDS: sucralfate 1 gm/10 mL Oral Liq UDC PO (11:30)
[2019-10-06 11:44] VITALS: BP 113/76; PULSE 92; RESP 16; TEMP 37.2; O2SAT 96
[2019-10-06] MEDS: albumin 12.5 GM/50 ML VIAL IV (12:50)
[2019-10-06] MEDS: promethazine 25 mg Tablet PO (12:55)
--- NOTE | 2019-10-06 13:27 | P.TS_ITS ---
Transfer Summary Providers Date of Admission: 09/30/19 18:16 Date of Discharge: 10/06/19 Attending Provider at Admission: Kaylie Riggins MD Attending Provider at Transfer: Robyn Alejandro MD Anticipated Date of Transfer: Anticipated date of transfer: 10/06/19 Receiving Facility & Provider: Receiving Provider: [Dr. Mckoy ] Receiving facility: [facility]] Diagnoses at Discharge Discharge Diagnosis (1) Alcoholic hepatitis: Status: Acute Qualifiers: Ascites presence: unspecified Qualified Code(s): K70.10 - Alcoholic hepatitis without ascites (2) Alcohol withdrawal: Status: Acute Qualifiers: Complication of substance-induced condition: with delirium Qualified Code(s): F10.231 - Alcohol dependence with withdrawal delirium (3) Alcohol intoxication: Status: Acute Qualifiers: Complication of substance-induced condition: with delirium Qualified Code(s): F10.921 - Alcohol use, unspecified with intoxication delirium (4) Fever: Status: Acute Qualifiers: Fever type: unspecified Qualified Code(s): R50.9 - Fever, unspecified (5) Cholelithiasis: Status: Acute Qualifiers: Cholelithiasis location: gallbladder Cholecystitis presence: without cholecystitis Biliary obstruction: without biliary obstruction Qualified Code(s): K80.20 - Calculus of gallbladder without cholecystitis without obstruction (6) Direct hyperbilirubinemia: Status: Acute Reason for Visit Reason for Visit: fever Hospital Course Discharge Summary: From h&P: Admitted on 09/30/19. Angelo Noonan is a 54 year old male who does not carry significant past medical history other than alcohol abuse came in for alcohol intoxication. Patient is stating that his last alcoholic drink was around afternoon and then he does not remember what happened, he states probably his daughter called EMS to take him to the hospital. Patient is stating that he is going through social stressors, going through divorce, he was supposed to go to [place] to see his biological mother but could not go. Lately for last 2 months he has started drinking heavily. He is drinking 7 to 8 cans of beer every day which are 24 ounces. Diagnostics in the ER revealed t.bili 5.2, AST 189, ALT 54, GGT 953, ALP 191. During course of admission, his transaminases have trended down to Ast 77/ALT30, ALP 99, however T. bili continues to trend up to 16.5, mainly direct bili. Tylenol level <[address] abdomen/pelvis upon admission with Hydropic gallbladder with possible cholelithiasis without pericholecystic inflammatory changes. GB ultrasound without wall thickening or pericholecystic fluid. MRCP on 09/30 Mildly hydropic gallbladder with cholelithiasis moderate enlarged measuring 20 cm in length. Changes of diffuse hepatic steatosis. Portal vein is patent. Common bile duct is never well seen on this examination due to motion. Common bile duct is also not dilated on the recent ultrasound or CT evaluation. There is no intrahepatic bile duct dilatation. Negative hep A IgM, HbSAG, hep c ab. Hiv negative. Tick panel negative for lyme and RMSF, Ehrlichia. Hospital course also notable for daily fever up to 102F, now at 99F, COVID 19 ruled out by negative PCR on 09/30. No infiltrates on CT chest. General surgery consulted due to concerns for cholecytitis vs cholangitis given ongoing fever. Recommended no acute surgical intervention, however if continues to be a persisting concern, recommend to have an interventional radiology for cholecystostomy tube for potential drainage and obtaining cultures and sensitivity as the patient is not an appropriate surgical candidate with a MELD score of 19. He has been on rx emprically with Zosyn--> broadened to imipenem, vancomycin and doxycycline (latter two now discontinued on 10/02) at this point without any resolution of fever. No obvious source of infection has been identified apart possibly gall bladder. fever may be related to alcoholic hepatitis vs withdrawal, however given rapidly worsening bilirubin, patient will be best managed in conjunction with GI/hepatology services, which we do not have available here at out hospital > he is being transferred to [facility] for the same. He is awake, alert at time of exam today, wakes up easily however has been noted to be more somnolent over the past 2 days. Ammonia is at 53. Cr today has trended up 3.2 from 0.7 on 10/03. Physical Exam Narrative: EXAM NARRATIVE: GEN: Awake, alert , no acute distress HEENT: icterus+ CVS: S1S2 N RS: CTA B/L Abd: Soft, nt/nd , bs+ NO BAKE MOLDER: no focal neuro motor deficits Urinary Catheter Management^: Patel: Cath Placed During This Visit: yes Reason for Continuing Indwelling Catheter: Acute Urinary Retention or Obstruction Urinary Catheter Date of Insertion: 10/03/19 Urinary Catheter Time of Insertion: 16:49 TS Data Data Completed and Pending: Completed Studies During Hospitalization Category Date Time Status CT abdomen pelvis w con* [id number] Urge nt Cat Scan 09/30/19 01:[address] angio chest w abd pel w con Rout ine Cat Scan 10/04/19 07:00 Completed XR chest 1V perla ble [id number] Routine Exams 09/30/19 17:57 Completed MR MRCP [id number] Rou marcie MRI 10/01/19 17:57 Completed US gall bladder 7 [id number] Urgent Ultrasound 09/30/19 01:27 Completed Pending at discharge Category Date Time Status Bilirubin Direct Routine Lab 10/06/19 04:44 Received Blood Culture AM LABS Lab 10/04/19 03:45 Results Blood Culture Sta t Lab 10/02/19 13:03 Results [facility] Profile R outine Lab 10/03/19 20:30 Received Labs from last 24 hours 10/06/19 10/06/19 10/06/19 04:44 04:44 04:44 WBC RBC Hgb Hct MCV MCH MCHC RDW Plt Count MPV Neut % (Auto) Lymph % (Auto) [place] % (Auto) Eos % (Auto) Baso % (Auto) Neut # (Auto) Lymph # (Auto) [place] # (Auto) Eos # (Auto) Baso # (Auto) Nucleated RBC % (a uto) Nucleated RBCs # PT 18.50 H INR 1.48 H Sodium Potassium Chloride Carbon Dioxide Anion Gap BUN Creatinine GFR Calculation Glucose Calculated Osmolal ity Calcium Phosphorus 1.9 L Magnesium 1.4 L Total Bilirubin AST ALT Alkaline Phosphata se Ammonia 53 Total Protein Albumin Globulin Procalcitonin 10/06/19 10/06/19 10/06/19 04:44 04:44 04:44 WBC 6.6 RBC 3.38 L Hgb 11.5 L Hct 32.8 L MCV 97.0 H MCH 34.0 MCHC 35.1 RDW 17.6 H Plt Count 132 MPV 10.3 Neut % (Auto) 71.7 Lymph % (Auto) 9.0 [place] % (Auto) 15.9 Eos % (Auto) 1.8 Baso % (Auto) 0.8 Neut # (Auto) 4.73 Lymph # (Auto) 0.6 L [place] # (Auto) 1.1 H Eos # (Auto) 0.1 Baso # (Auto) 0.1 Nucleated RBC % (a uto) 0 Nucleated RBCs # 0.0 PT INR Sodium 138 Potassium 2.9 L Chloride 104 Carbon Dioxide 22 Anion Gap 14.9 BUN 21 H Creatinine 3.2 H GFR Calculation 20.2 L Glucose 105 Calculated Osmolal ity 283 L Calcium 7.9 L Phosphorus Magnesium Total Bilirubin 19.6 H* AST 73 H ALT 22 Alkaline Phosphata se 96 Ammonia Total Protein 4.6 L Albumin 2.5 L Globulin 2.1 Procalcitonin 3.08 H Vitals: Last Vital Signs Temp 99.0 F 10/06/19 11:44 Pulse 92 10/06/19 11:44 Resp 16 10/06/19 11:44 BP 113/76 10/06/19 11:44 Pulse Ox 96 10/06/19 11:44 TS Medications Medications Active Medications Enoxaparin Sodium (Lovenox) 40 mg SUBCUT Q24H [facility] Last Admin: 10/06/19 08:10 Dose: 40 mg Documented by: Folic Acid (Folic Acid) 1 mg PO DAILY [facility] Last Admin: 10/06/19 08:10 Dose: 1 mg Documented by: Guaifenesin (Robitussin Oral Liq) 200 mg PO Q4H PRN PRN Reason: COUGH AND CONGESTION Last Admin: 10/06/19 09:41 Dose: 200 mg Documented by: Dextrose/Sodium Chloride (Dextrose 5%-Sod Chloride 0.45%) 1,000 mls @ 50 mls/hr IV .Q20H [facility] Last Admin: 10/05/19 18:31 Dose: 50 mls/hr Documented by: Imipenem/Cilastatin Sodium 250 (mg/ Sodium Chloride) 100 mls @ 200 mls/hr IV Q6H [facility]; Protocol Lactulose (Constulose) 10 gm PO DAILY [facility] Last Admin: 10/06/19 08:10 Dose: 10 gm Documented by: Lorazepam (Ativan) 2 mg PO Q4H PRN; Protocol PRN Reason: WITHDRAWAL Last Admin: 10/05/19 06:17 Dose: 2 mg Documented by: Lorazepam (Ativan) 2 mg IVP Q2H PRN PRN Reason: ANXIETY Last Admin: 10/06/19 12:50 Dose: 2 mg Documented by: Multivitamins Therapeutic (Multivitamin Tab) 1 tab PO DAILY [facility] Last Admin: 10/06/19 08:10 Dose: 1 tab Documented by: Olanzapine (Zyprexa Zydis) 2.5 mg PO BEDTIME [facility] Last Admin: 10/05/19 20:04 Dose: 2.5 mg Documented by: Ondansetron HCl (Zofran) 4 mg IVP Q8H PRN PRN Reason: NAUSEA AND VOMITING Last Admin: 10/06/19 09:40 Dose: 4 mg Documented by: Pantoprazole Sodium (Protonix) 40 mg PO DAILY [facility] Last Admin: 10/06/19 08:10 Dose: 40 mg Documented by: Promethazine HCl (Phenergan) 25 mg PO Q6H PRN PRN Reason: persistent nausea Last Admin: 10/06/19 12:55 Dose: 25 mg Documented by: Fluticasone/Salmeterol (Advair Diskus 100-50) 1 puff INHALATION BID.RESPIRATORY [facility] Last Admin: 10/06/19 09:36 Dose: 1 puff Documented by: Sucralfate (Carafate Oral Liq) 1 gm PO AC&BEDTIME [facility] Last Admin: 10/06/19 11:30 Dose: 1 gm Documented by: Thiamine Mononitrate (Vitamin B-1) 100 mg PO DAILY [facility] Last Admin: 10/06/19 08:10 Dose: 100 mg Documented by: Tiotropium [place] (Spiriva) 18 mcg INHALATION DAILY.RESPIRATORY [facility] Last Admin: 10/06/19 09:37 Dose: 1 puff Documented by: Discharge Plan Discharge Patient Disposition: Xfer Other Condition: Stable Discharge Orders: Transfer Out of Facility (Order); Ordered 10/04/19 Ordered By: Robyn Alejandro Transfer Attestations Time Spent in Transfer Care*: greater than 30 min Status at Transfer: Cognitive status at transfer: mildly impaired cognition , Behavioral status at transfer: cooperative and can be uncooperative , Functional status at transfer: independent ambulation Overall status at transfer: patient is not back to baseline Quality Metrics Clinical Quality Measures: During this hospital stay, did patient experience: None Coding Level of Care Code Acute Try On Baster for [place] Fwd Diagnoses Alcoholic hepatitis K70.10 Ascites presence: unspecified Alcohol withdrawal F10.231 Complication of substance-induced condition: with delirium Alcohol intoxication F10.921 Complication of substance-induced condition: with delirium Fever R50.9 Fever type: unspecified Cholelithiasis K80.20 Cholelithiasis location: gallbladder Cholecystitis presence: without cholecystitis Biliary obstruction: without biliary obstruction Direct hyperbilirubinemia E80.6
--- NOTE | 2019-10-06 13:37 | PC.NURSE ---
Report called to Yi Yu RN at [facility].
--- NOTE | 2019-10-06 15:03 | PC.NURSE ---
Pt report given to ambulance crew, helped move to stretcher. transported by [facility]
[2019-10-06 15:06] VITALS: BP 113/76; PULSE 92; RESP 16; TEMP 37.2; O2SAT 96
[2019-10-07 14:26] LABS: Anti-Double Strand DNA AB 1 IU/mL; Jo-1 Antibody <1.0 NEG AI (<1.0 NEG); SM/RNP Antibodies <1.0 NEG AI (<1.0 NEG); SS-B/LA IGG <1.0 NEG AI (<1.0 NEG); Scleroderma Ab(Scl-70) Ab <1.0 NEG AI (<1.0 NEG); Ss-A/Ro Igg <1.0 NEG AI (<1.0 NEG)
== END 2019-10-06 14:47 | disposition short-term general hospital (02) | DRG 872 ==
LOC: ER 09-30 04:05 → MEDSURG 09-30 05:24
PROVIDERS: Hospitalist; Nurse Practitioner Family; Student in an Organized Health Care Education/Training Program; Admitting Provider Internal Medicine; Emergency Provider Emergency Medicine; Visit Provider Student in an Organized Health Care Education/Training Program
DX: A41.9 Sepsis, unspecified organism (principal); K70.10 Alcoholic hepatitis without ascites; E80.6 Other disorders of bilirubin metabolism; K80.20 Calculus of gallbladder without cholecystitis without obstruction; F10.10 Alcohol abuse, uncomplicated; E87.6 Hypokalemia; F17.210 Nicotine dependence, cigarettes, uncomplicated
CPT/HCPCS: 12345; 36415; 51702; 71045; 71275; 74177; 74181; 76705; 80053; 80074; 80202; 80307; 81001; 82140; 82247; 82248; 82436; 82607; 82977; 83010; 83615; 83690; 83735; 84100; 84133; 84145; 84300; 85025; 85610; 85651; 86140; 86225; 86235; 86618; 86666; 86757; 87040; 87070; 87086; 87205; 87635; 87641; 87806; 94640; 96372; 96375; 99283; G0378; J0743; J1650; J2060; J2405; J2543; J3370; J3411; J3480; J3490; J7030; J7050; J7799; P9047; Q0169; Q9967

== ENCOUNTER 2019-11-08 02:01 | Emergency (ER) | payer OTHER, MEDICARE, SELFPAY ==
[2019-11-08] VITALS (9 sets, daily range): BP systolic 125–149; BP diastolic 77–102; PULSE 98–104; RESP 18–26; TEMP 37.3; O2SAT 93–99; BMI 24.3
--- NOTE | 2019-11-08 02:09 | XR_ITS ---
WS: [id number] Portable AP upright chest, 11/08/2019 Clinical Data: Dyspnea Comparison: Portable chest, 09/30/2019. Findings: A large right pleural effusion has developed compared to the previous x-ray. There is only a small amount of right upper lobe aerated lung. There is no significant mediastinal shift. The left lung is clear. No left lung nodules, masses or effusions are seen. XR/XR chest 1V portable [id number] Impression: Large right pleural effusion.
[2019-11-08] MEDS: ipratropium-albuterol 3 mL Neb 9 ML INHALATION (02:20)
[2019-11-08 02:27] LABS: ABG PH Result 7.44 (7.35-7.45); Alveolar-Arterial Oxygen Gradi 5.3 mmHg (5-10); Arterial Blood Gas Hematocrit 28.8 % (42-52); Base Excess ABG -3.5 mmol/L (-2.0-2.0); Blood Gas Allen Test Pos; Blood Gas Sample Site Radial, right; Blood Gas Sample Type Arterial; Carboxyhemoglobin 1.6 %THgb (0.4-20.1); HCO3 ABG 19.9 mmol/L (22-26); HGB O2 Sat 93.6 % (95-100); Ionized Calcium Level - ABG 1.1 mmol/L (1.1-1.4); Oxygen Device NC; Oxygen Saturation ABG 96.1; PO2 ABG 71.8 mmHg (80.0-100.0); Potassium Level - ABG 3.7 mmol/L (3.5-5.0); Total Hemoglobin 9.4 g/dL (14-18)
[2019-11-08 02:28] LABS: Basophils # 0.1 10^3/uL (0.0-0.1); Basophils % 0.8 %; Eosinophils # 0.3 10^3/uL (0.0-0.8); Eosinophils % 3.9 %; Hematocrit 28.9 % (42.0-52.0); Hemoglobin 9.2 g/dL (11.7-16.6); Lymphocytes # 0.6 10^3/uL (0.8-4.8); Lymphocytes % 8.4 %; Mean Corpuscular HGB Conc 31.8 g/dL (30.0-36.0); Mean Corpuscular Hemoglobin 33.2 pg (28.0-34.0); Mean Corpuscular Volume 104.3 fL (80-94); Mean Platelet Volume 9.5 fL (7.4-10.4); Monocytes # 0.6 10^3/uL (0.2-0.9); Monocytes % 7.9 %; Neutrophils # 5.59 10^3/uL (1.8-7.7); Neutrophils % 78.6 %; Nucleated Red Blood Cells % 0 %; Platelet Count 143 10^3/cmm (130-400); Red Blood Count 2.77 10^6/uL (4.1-5.3); Red Cell Distribution Width 21.4 % (12.1-15.1); White Blood Count 7.1 10^3/uL (4.0-10.0)
--- NOTE | 2019-11-08 02:41 | W.ED.SOB ---
HPI - SOB/Dyspnea General: Chief Complaint: Shortness of Breath/Dyspnea Stated Complaint: respiratory distress Time Seen by Provider: 11/08/19 02:03 Source: patient and EMS Mode of arrival: EMS Limitations: no limitations History of Present Illness: HPI Narrative: Angelo is a 54-year-old male who comes in with a complaint of shortness of breath. EMS was called and upon their arrival noted the patient to be mildly labored and tachypneic. They noted Rales and wheezing on their exam and give the patient 1 albuterol treatment and 125 mg of Solu-Medrol. This along with oxygen he improved bringing his pulse ox from the low 90s up to the high 90s. They did notice worsening of his shortness of breath when he exerted himself by walking to their ambulance gurney. Patient's been afebrile does not report a cough. Of note the patient is jaundiced and states that he has been in the hospital here as well as in [place] for liver disease. Patient states his symptoms started in the past 1 to 2 days. Patient is not a good historian as he states he is just tired of being sick. He states in regard to his liver disease that he has been at [facility] and they talked about possibly putting a stent in but he is unaware where that is in that process. Patient is not familiar with the terms congestive heart failure or COPD. Associated symptoms: Deny abdominal pain, chest pain, diaphoresis, dizziness, extremity pain, fever(s), hemoptysis, lightheadedness, nausea, orthopnea, palpitations, syncope or vomiting Review of Systems Const: Denies: fever(s), chills, body aches, fatigue, malaise or diaphoresis Eyes: Denies: change in vision, blurry vision, photophobia, eye discomfort, eye discharge or eye redness ENMT: Denies: throat pain, odynophagia, hoarseness, swelling of lips/tongue, ear or mastoid pain, ear discharge, change in hearing or nasal discharge Card: Denies: chest pain, palpitations, irregular heart rhythm, edema, lightheadedness, syncope, pre-syncope, dyspnea on exertion or orthopnea Resp: Reports: dyspnea; Denies: productive cough or hemoptysis GI: Denies: abdominal pain, nausea, vomiting, hematemesis, coffee ground emesis, heartburn, diarrhea, constipation, GI cramping, hematochezia or melena : Denies: flank pain, dysuria, urinary frequency, urinary urgency or hematuria Musc: Denies: neck pain, back pain, extremity pain, extremity swelling, joint pain, joint swelling, joint redness, joint warmth or joint stiffness Skin/Breast: Reports: jaundice; Denies: rash, pruritus, erythema or skin tenderness Neuro: Denies: headache(s), numbness in extremities, weakness in extremities, sensory changes, lack of coordination, difficulty walking, dizziness, vertigo, confusion, Slurred speech present or seizure-like activity Octavio/Lymph: Denies: easy bruising, easy bleeding, petechiae, purpura or enlarged lymph nodes All/Imm: Denies: urticaria, throat swelling, tongue swelling, facial swelling or acute wheezing PFSH ED PFSH: Medical History Alcohol abuse Hiatal hernia Surgical History H/O knee surgery H/O shoulder surgery History of esophageal hernia repair Family History Denies family history of Lung disease Hypertension Social History Smoking and tobacco status: light tobacco smoker cigarettes [ Other cigarette details: 2 to 3 cigarettes a day ] Alcohol intake: current Alcohol type: beer Household members: family Housing: House Physical Exam Const: COMMON NORMALS: patient oriented x3, no limitations, healthy appearing and well nourished GENERAL APPEARANCE: cooperative, well kempt, well developed and in distress (Mild respiratory distress) HENMT: COMMON NORMALS: normocephalic, atraumatic, external ears normal, EAC's normal and Normal external nose present HEAD & SCALP: normal to inspection, normocephalic and atraumatic FACE & SINUS: normal facial exam and face symmetric NOSE: Normal external nose present and Normal nares present EXTERNAL EAR: Yes external ears normal EXTERNAL AUDITORY CANAL: EAC's normal MOUTH: Normal oral and palatal mucosa present, lip normal and tongue normal Eye: COMMON NORMALS: Equal, round and reactive pupils present and conjunctivae normal GENERAL EYE: appearance normal, both eyes and all related structures ALIGNMENT: Yes alignment normal PERIORBITAL: periorbital findings normal EYELID: eyelids normal CONJUNCTIVA: Yes conjunctivae normal SCLERA: scleral abnormal Laterality of scleral abnormality: positive bilateral scleral icterus PUPIL: Yes Equal, round and reactive pupils present Neck/C-Spine: COMMON NORMALS: full ROM, no lymphadenopathy, supple, no meningeal signs and no JVD GENERAL: Yes normal visual inspection and Yes trachea midline Chest: COMMONS NORMALS: normal inspection of the chest and normal palpation of entire chest wall Resp: EFFORT & INSPECTION: Yes tachypneic, Yes respiratory distress, Yes labored and Yes uses accessory muscles AUSCULTATION: rales, rhonchi and wheezes Cardio: COMMON NORMALS: no JVD, regular rate, regular rhythm, S1 normal heart sound present and S2 normal heart sound present RATE: regular rate RHYTHM: regular rhythm HEART SOUNDS: S1 normal heart sound present, S2 normal heart sound present, no click, no gallops, no murmurs, no rubs and abnormal split S2 GI: COMMON NORMALS: Soft to palpation and No hepatosplenomegaly present PALPATION: Yes Soft to palpation, No Tenderness to palpation present (GI), No Guarding due to palpation present (GI), No Rigid due to palpation, Yes No hepatosplenomegaly present, No Hernia present, No Palpable mass present and No Pulsatile mass present : COMMON NORMALS: Yes no CVA tenderness BLADDER/KIDNEY EXAM: Yes no CVA tenderness Back/Pelvis: COMMON NORMALS: no CVA tenderness, thoracic and lumbar spine normal to inspection, no thoracic nor lumbar tenderness and thoraco-lumbar ROM normal Extremity: COMMON NORMALS: normal to inspection, full ROM, capillary refill normal, no joint enlargement, no clubbing, cyanosis or edema and no calf tenderness Neuro: COMMON NORMALS: patient oriented x3, CN's II-XII intact bilaterally, moves all extremities, no focal motor deficits and no sensory deficits noted MENINGEAL SIGNS: Yes no meningeal signs SPEECH: speech normal Psych: COMMON NORMALS: mental status grossly normal, Normal thought process present, cooperative, normal affect, speech normal and activity/motor behavior normal APPEARANCE: Yes well kempt SPEECH: Yes normal speech THOUGHT PROCESS: Normal thought process present Skin: COMMON NORMALS: no rashes or lesions noted, turgor normal, no petechiae and no mottling GENERAL SKIN EXAM: no rashes or lesions noted, turgor normal and jaundice Course Vital Signs: Vital signs: Vital Signs Temperature 99.2 F 11/08/19 02:06 Pulse Rate 98 11/08/19 07:27 Respiratory Rate 18 11/08/19 07:27 Blood Pressure 135/88 11/08/19 07:27 Pulse Oximetry 98 11/08/19 07:27 MDM - SOB/Dyspnea MDM Narrative: Medical decision making narrative: Angelo Noonan is a nice 54-year-old male who comes in with shortness of breath. His shortness of breath is primarily due to a large right pleural effusion from recurrent alcoholic cirrhosis. The patient likely is going to need a TIPS procedure definitively to stop the recurrence of these. I reviewed the case in full with Dr. Garcia on-call for GI at [facility]. He agrees accept the patient in transfer. He would also like a thoracentesis performed prior to transfer. I have discussed the case with Dr. Shaffer and he agrees to come perform the thoracentesis. The case been previously reviewed with Dr. Dobbs and she felt the patient needed transfer for the TIPS procedure. Patient is stable at this time. Lab Data: Attestation: I reviewed the patient's lab results. Labs: Lab Results 11/08/19 11/08/19 11/08/19 Range/Units 02:15 02:22 02:22 WBC 7.1 (4.0-10.0) 10^3/ uL RBC 2.77 L (4.1-5.3) 10^6/u L Hgb 9.2 L (11.7-16.6) g/dL Hct 28.9 L (42.0-52.0) % MCV 104.3 H (80-94) fL MCH 33.2 (28.0-34.0) pg MCHC 31.8 (30.0-36.0) g/dL RDW 21.4 H (12.1-15.1) % Plt Count 143 (130-400) 10^3/c mm MPV 9.5 (7.4-10.4) fL Neut % (Auto) 78.6 % Lymph % (Auto) 8.4 % [place] % (Auto) 7.9 % Eos % (Auto) 3.9 % Baso % (Auto) 0.8 % Neut # (Auto) 5.59 (1.8-7.7) 10^3/u L Lymph # (Auto) 0.6 L (0.8-4.8) 10^3/u L [place] # (Auto) 0.6 (0.2-0.9) 10^3/u L Eos # (Auto) 0.3 (0.0-0.8) 10^3/u L Baso # (Auto) 0.1 (0.0-0.1) 10^3/u L Nucleated RBC % (a uto) 0 % Nucleated RBCs # 0.0 /100WBC Differential Comme nt PT 20.10 H (12.1-14.9) SECO NDS INR 1.65 H (0.8-1.2) APTT 40.1 H (23.9-36.7) SECO NDS Specimen Type Arterial Sample Site Radial, right ABG pH 7.44 (7.35-7.45) ABG pCO2 29.0 L (35-45) mmHg ABG pO2 71.8 L (80.0-100.0) mmH g ABG HCO3 19.9 L (22-26) mmol/L ABG O2 Saturation 96.1 ABG Base Excess -3.5 L (-2.0-2.0) mmol/ L [place] Test Pos A-a O2 Gradient 5.3 (5-10) mmHg Hematocrit 28.8 L (42-52) % Hgb O2 Saturation 93.6 L (95-100) % Carboxyhemoglobin 1.6 (0.4-20.1) %THgb Methemoglobin 1.0 (0.4-1.5) % Total Hemoglobin 9.4 L (14-18) g/dL Sodium 141.0 (131-143) mmol/L Potassium 3.7 (3.5-5.0) mmol/L Glucose 116.0 H (70-115) mg/dL Ionized Calcium 1.1 (1.1-1.4) mmol/L O2 Delivery Device Nc O2 Liters/Min 6.0 % Manager [facility] Term [facility] ID Jlg Chloride (98-107) mmol/L Carbon Dioxide (22-29) mmol/L Anion Gap (5-19) BUN (6-20) mg/dL Creatinine (0.7-1.2) mg/dL GFR Calculation (90-130) mL/min Calculated Osmolal ity (285-295) mOsm/k g Lactic Acid (0.5-2.2) mmol/L Calcium (8.5-10.5) mg/dL Magnesium (1.7-2.3) mg/dL Total Bilirubin (0.15-1.2) mg/dL AST (0-40) U/L ALT (0-41) U/L Alkaline Phosphata se (40-130) IU/L Ammonia (16-60) umol/L Troponin T Baselin e (0-15) ng/L Troponin T 120 Min [place] (0-15) ng/L Delta Troponin T (0-10) ABS# NT-Pro-B Natriuret Pep (0-125) pg/mL Total Protein (6.6-8.7) g/dL Albumin (3.5-5.2) g/dL Globulin (1.3-4.6) g/dL Lipase (13-60) U/L Fluid Color (PALE YELLOW) Fluid Appearance (CLEAR) Fluid WBC /uL Fluid RBC (0-0) 10^3/uL Fld Polynuclear WB Cs # 10^3/uL Fld Polynuclear WB Cs % % Fl Mononucl WBCs # (Auto) 10^3/uL Fl Mononuclear % A uto % Pleural pH (6.5-7.5) Pleural LDH U/L Pleural Glucose mg/dL Ethyl Alcohol (0-10) mg/dL SARS-CoV-2 Ag (Rap id) (Negative) 11/08/19 11/08/19 11/08/19 Range/Units 02:22 02:22 02:22 WBC (4.0-10.0) 10^3/ uL RBC (4.1-5.3) 10^6/u L Hgb (11.7-16.6) g/dL Hct (42.0-52.0) % MCV (80-94) fL MCH (28.0-34.0) pg MCHC (30.0-36.0) g/dL RDW (12.1-15.1) % Plt Count (130-400) 10^3/c mm MPV (7.4-10.4) fL Neut % (Auto) % Lymph % (Auto) % [place] % (Auto) % Eos % (Auto) % Baso % (Auto) % Neut # (Auto) (1.8-7.7) 10^3/u L Lymph # (Auto) (0.8-4.8) 10^3/u L [place] # (Auto) (0.2-0.9) 10^3/u L Eos # (Auto) (0.0-0.8) 10^3/u L Baso # (Auto) (0.0-0.1) 10^3/u L Nucleated RBC % (a uto) % Nucleated RBCs # /100WBC Differential Comme nt PT (12.1-14.9) SECO NDS INR (0.8-1.2) APTT (23.9-36.7) SECO NDS Specimen Type Sample Site ABG pH (7.35-7.45) ABG pCO2 (35-45) mmHg ABG pO2 (80.0-100.0) mmH g ABG HCO3 (22-26) mmol/L ABG O2 Saturation ABG Base Excess (-2.0-2.0) mmol/ L [place] Test A-a O2 Gradient (5-10) mmHg Hematocrit (42-52) % Hgb O2 Saturation (95-100) % Carboxyhemoglobin (0.4-20.1) %THgb Methemoglobin (0.4-1.5) % Total Hemoglobin (14-18) g/dL Sodium 140 (131-143) mmol/L Potassium 4.1 (3.5-5.0) mmol/L Glucose 123 H (70-115) mg/dL Ionized Calcium (1.1-1.4) mmol/L O2 Delivery Device O2 Liters/Min % Manager [facility] Term [facility] ID Chloride 109 H (98-107) mmol/L Carbon Dioxide 23 (22-29) mmol/L Anion Gap 12.1 (5-19) BUN 15 (6-20) mg/dL Creatinine 1.7 H (0.7-1.2) mg/dL GFR Calculation 41.9 L (90-130) mL/min Calculated Osmolal ity 288 (285-295) mOsm/k g Lactic Acid 1.5 (0.5-2.2) mmol/L Calcium 8.3 L (8.5-10.5) mg/dL Magnesium 1.7 (1.7-2.3) mg/dL Total Bilirubin 15.1 H* (0.15-1.2) mg/dL AST 143 H (0-40) U/L ALT 54 H (0-41) U/L Alkaline Phosphata se 164 H (40-130) IU/L Ammonia 34 (16-60) umol/L Troponin T Baselin e (0-15) ng/L Troponin T 120 Min [place] (0-15) ng/L Delta Troponin T (0-10) ABS# NT-Pro-B Natriuret Pep 365 H (0-125) pg/mL Total Protein 6.4 L (6.6-8.7) g/dL Albumin 3.8 (3.5-5.2) g/dL Globulin 2.6 (1.3-4.6) g/dL Lipase 54 (13-60) U/L Fluid Color (PALE YELLOW) Fluid Appearance (CLEAR) Fluid WBC /uL Fluid RBC (0-0) 10^3/uL Fld Polynuclear WB Cs # 10^3/uL Fld Polynuclear WB Cs % % Fl Mononucl WBCs # (Auto) 10^3/uL Fl Mononuclear % A uto % Pleural pH (6.5-7.5) Pleural LDH U/L Pleural Glucose mg/dL Ethyl Alcohol < 10 (0-10) mg/dL SARS-CoV-2 Ag (Rap id) (Negative) 11/08/19 11/08/19 11/08/19 Range/Units 02:22 02:37 04:02 WBC (4.0-10.0) 10^3/ uL RBC (4.1-5.3) 10^6/u L Hgb (11.7-16.6) g/dL Hct (42.0-52.0) % MCV (80-94) fL MCH (28.0-34.0) pg MCHC (30.0-36.0) g/dL RDW (12.1-15.1) % Plt Count (130-400) 10^3/c mm MPV (7.4-10.4) fL Neut % (Auto) % Lymph % (Auto) % [place] % (Auto) % Eos % (Auto) % Baso % (Auto) % Neut # (Auto) (1.8-7.7) 10^3/u L Lymph # (Auto) (0.8-4.8) 10^3/u L [place] # (Auto) (0.2-0.9) 10^3/u L Eos # (Auto) (0.0-0.8) 10^3/u L Baso # (Auto) (0.0-0.1) 10^3/u L Nucleated RBC % (a uto) % Nucleated RBCs # /100WBC Differential Comme nt PT (12.1-14.9) SECO NDS INR (0.8-1.2) APTT (23.9-36.7) SECO NDS Specimen Type Sample Site ABG pH (7.35-7.45) ABG pCO2 (35-45) mmHg ABG pO2 (80.0-100.0) mmH g ABG HCO3 (22-26) mmol/L ABG O2 Saturation ABG Base Excess (-2.0-2.0) mmol/ L [place] Test A-a O2 Gradient (5-10) mmHg Hematocrit (42-52) % Hgb O2 Saturation (95-100) % Carboxyhemoglobin (0.4-20.1) %THgb Methemoglobin (0.4-1.5) % Total Hemoglobin (14-18) g/dL Sodium (131-143) mmol/L Potassium (3.5-5.0) mmol/L Glucose (70-115) mg/dL Ionized Calcium (1.1-1.4) mmol/L O2 Delivery Device O2 Liters/Min % Manager [facility] Term [facility] ID Chloride (98-107) mmol/L Carbon Dioxide (22-29) mmol/L Anion Gap (5-19) BUN (6-20) mg/dL Creatinine (0.7-1.2) mg/dL GFR Calculation (90-130) mL/min Calculated Osmolal ity (285-295) mOsm/k g Lactic Acid (0.5-2.2) mmol/L Calcium (8.5-10.5) mg/dL Magnesium (1.7-2.3) mg/dL Total Bilirubin (0.15-1.2) mg/dL AST (0-40) U/L ALT (0-41) U/L Alkaline Phosphata se (40-130) IU/L Ammonia (16-60) umol/L Troponin T Baselin e 16 H (0-15) ng/L Troponin T 120 Min [place] 14.11 (0-15) ng/L Delta Troponin T -1.89 L (0-10) ABS# NT-Pro-B Natriuret Pep (0-125) pg/mL Total Protein (6.6-8.7) g/dL Albumin (3.5-5.2) g/dL Globulin (1.3-4.6) g/dL Lipase (13-60) U/L Fluid Color (PALE YELLOW) Fluid Appearance (CLEAR) Fluid WBC /uL Fluid RBC (0-0) 10^3/uL Fld Polynuclear WB Cs # 10^3/uL Fld Polynuclear WB Cs % % Fl Mononucl WBCs # (Auto) 10^3/uL Fl Mononuclear % A uto % Pleural pH (6.5-7.5) Pleural LDH U/L Pleural Glucose mg/dL Ethyl Alcohol (0-10) mg/dL SARS-CoV-2 Ag (Rap id) Negative (Negative) 11/08/19 11/08/19 Range/Units 07:22 07:22 WBC (4.0-10.0) 10^3/ uL RBC (4.1-5.3) 10^6/u L Hgb (11.7-16.6) g/dL Hct 8.2 L* D (42.0-52.0) % MCV (80-94) fL MCH (28.0-34.0) pg MCHC (30.0-36.0) g/dL RDW (12.1-15.1) % Plt Count (130-400) 10^3/c mm MPV (7.4-10.4) fL Neut % (Auto) % Lymph % (Auto) % [place] % (Auto) % Eos % (Auto) % Baso % (Auto) % Neut # (Auto) (1.8-7.7) 10^3/u L Lymph # (Auto) (0.8-4.8) 10^3/u L [place] # (Auto) (0.2-0.9) 10^3/u L Eos # (Auto) (0.0-0.8) 10^3/u L Baso # (Auto) (0.0-0.1) 10^3/u L Nucleated RBC % (a uto) % Nucleated RBCs # /100WBC Differential Comme nt Yes PT (12.1-14.9) SECO NDS INR (0.8-1.2) APTT (23.9-36.7) SECO NDS Specimen Type Sample Site ABG pH (7.35-7.45) ABG pCO2 (35-45) mmHg ABG pO2 (80.0-100.0) mmH g ABG HCO3 (22-26) mmol/L ABG O2 Saturation ABG Base Excess (-2.0-2.0) mmol/ L [place] Test A-a O2 Gradient (5-10) mmHg Hematocrit (42-52) % Hgb O2 Saturation (95-100) % Carboxyhemoglobin (0.4-20.1) %THgb Methemoglobin (0.4-1.5) % Total Hemoglobin (14-18) g/dL Sodium (131-143) mmol/L Potassium (3.5-5.0) mmol/L Glucose (70-115) mg/dL Ionized Calcium (1.1-1.4) mmol/L O2 Delivery Device O2 Liters/Min % Manager Long Term Care ID Chloride (98-107) mmol/L Carbon Dioxide (22-29) mmol/L Anion Gap (5-19) BUN (6-20) mg/dL Creatinine (0.7-1.2) mg/dL GFR Calculation (90-130) mL/min Calculated Osmolal ity (285-295) mOsm/k g Lactic Acid (0.5-2.2) mmol/L Calcium (8.5-10.5) mg/dL Magnesium (1.7-2.3) mg/dL Total Bilirubin (0.15-1.2) mg/dL AST (0-40) U/L ALT (0-41) U/L Alkaline Phosphata se (40-130) IU/L Ammonia (16-60) umol/L Troponin T Baselin e (0-15) ng/L Troponin T 120 Min [place] (0-15) ng/L Delta Troponin T (0-10) ABS# NT-Pro-B Natriuret Pep (0-125) pg/mL Total Protein (6.6-8.7) g/dL Albumin (3.5-5.2) g/dL Globulin (1.3-4.6) g/dL Lipase (13-60) U/L Fluid Color Red (PALE YELLOW) Fluid Appearance Bloody (CLEAR) Fluid WBC 582 /uL Fluid RBC 774 H (0-0) 10^3/uL Fld Polynuclear WB Cs # 0.114 10^3/uL Fld Polynuclear WB Cs % 19.600 % Fl Mononucl WBCs # (Auto) 0.005 10^3/uL Fl Mononuclear % A uto 80.400 % Pleural pH 7.50 (6.5-7.5) Pleural LDH 147 U/L Pleural Glucose 117.0 mg/dL Ethyl Alcohol (0-10) mg/dL SARS-CoV-2 Ag (Rap id) (Negative) Imaging Data^: CXR: Attestation: I personally reviewed and interpreted this imaging study as follows: My impression: Large right pleural effusion. CTA Chest/Abdomen and Pelvis: Radiologist's impression: [place] [address] CT Scan Report Signed Patient: Angelo Noonan Unit #: [id number] : 1965 Age/Sex: 54 / M ADM Date: 11/08/19 Loc: ER Room/Bed: Attending Dr: Ordering Provider/Ordering MD: Tiara Gongora DO Date of Service: 11/08/19 Procedure(s): CT chest abd pel w con* Accession Number(s): [id number] Report Number: [id number] PROCEDURE INFORMATION: Exam: CT Chest With Contrast Exam date and time: 11/08/2019 4:28 AM Age: 54 years old Clinical indication: Bloating; Abdominal pain; Generalized; Cough and shortness of breath; Chest pain; Type not specified; Additional info: Pain/shortness of breath TECHNIQUE: Imaging protocol: Computed tomography of the chest with intravenous contrast. Radiation optimization: All CT scans at this facility use at least one of these dose optimization techniques: automated exposure control; mA and/or kV adjustment per patient size (includes targeted exams where dose is matched to clinical indication); or iterative reconstruction. Contrast material: VISI; Contrast volume: 95 ml; Contrast route: INTRAVENOUS (IV); COMPARISON: CT abdomen pelvis w con* [id number] 09/30/2019 2:28 AM RADIATION DOSE METRICS: Total DLP (mGy-cm): 2767.79 FINDINGS: Lungs: Almost complete collapse of the right lung is seen due to huge right pleural effusion. Small area area of aerated lung is seen anteromedially. The left lung is unremarkable No consolidation. No masses. Pleural space: A massive right pleural effusion has developed since previous examination causing collapse of the most of the underlying right lung and shift of the mediastinum to the left. A trickle amount of left pleural effusion is present. Heart: Coronary artery calcifications are present. No cardiomegaly. No pericardial effusion. Aorta: Unremarkable. No aortic aneurysm. Lymph nodes: Unremarkable. No enlarged lymph nodes. Bones/joints: Unremarkable. No acute fracture. Soft tissues: Unremarkable. IMPRESSION: A new huge right pleural effusion with collapse of the underlying right lung and contralateral shift of the mediastinum is present. Trace left pleural effusion is seen. PROCEDURE INFORMATION: Exam: CT Abdomen And Pelvis With Contrast Exam date and time: 11/08/2019 4:28 AM Age: 54 years old Clinical indication: Bloating; Abdominal pain; Generalized; Cough and shortness of breath; Chest pain; Type not specified; Additional info: Pain/shortness of breath TECHNIQUE: Imaging protocol: Computed tomography of the abdomen and pelvis with intravenous contrast. Radiation optimization: All CT scans at this facility use at least one of these dose optimization techniques: automated exposure control; mA and/or kV adjustment per patient size (includes targeted exams where dose is matched to clinical indication); or iterative reconstruction. Contrast material: VISI; Contrast volume: 95 ml; Contrast route: INTRAVENOUS (IV); COMPARISON: CT abdomen pelvis w con* [id number] 09/30/2019 2:28 AM RADIATION DOSE METRICS: Total DLP (mGy-cm): 2767.79 FINDINGS: Liver: Shows shrinking of the size from the previous examination with interval improvement in the low-attenuation fatty change. The features suggest rapidly progressing cirrhosis. No mass. Gallbladder and bile ducts: The gallbladder is distended with biliary sludge versus small stones. No ductal dilation. Pancreas: Normal. No ductal dilation. Spleen: The spleen is enlarged measuring 16.9 cm in length the splenic vein is prominent with few varices identified. These are new findings since previous examination. Adrenals: Normal. No mass. Kidneys and ureters: Normal. No hydronephrosis. Stomach and bowel: Unremarkable. No obstruction. No mucosal thickening. Appendix: No evidence of appendicitis. Intraperitoneal space: Unremarkable. No free air. Small amount of ascites is seen around the liver and in the pelvis. Vasculature: Unremarkable. No abdominal aortic aneurysm. Lymph nodes: Unremarkable. No enlarged lymph nodes. Bladder: Unremarkable as visualized. Reproductive: Unremarkable as visualized. Bones/joints: Degenerative changes are present. No acute fracture. Soft tissues: Mild generalized anasarca are new since previous examination. CT/CT chest abd pel w con* IMPRESSION: Findings in the liver, spleen and small amount of ascites suggest rapidly progressing cirrhosis of the liver. 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
[2019-11-08 02:54] LABS: INR 1.65 (0.8-1.2); Partial Thromboplastin Time 40.1 SECONDS (23.9-36.7)
[2019-11-08 03:02] LABS: Lactic Sepsis W/Reflex 1.5 mmol/L (0.5-2.2)
[2019-11-08 03:03] LABS: Ammonia 34 umol/L (16-60)
[2019-11-08 03:04] LABS: Troponin(5th) Baseline 16 ng/L (0-15)
[2019-11-08 03:07] LABS: SARS Covid-2 Antigen Negative (Negative)
[2019-11-08 03:12] LABS: Alanine Aminotransferase 54 U/L (0-41); Albumin Level 3.8 g/dL (3.5-5.2); Alkaline Phosphatase 164 IU/L (40-130); Anion Gap 12.1 (5-19); Aspartate Amino Transferase 143 U/L (0-40); Blood Urea Nitrogen 15 mg/dL (6-20); Calcium 8.3 mg/dL (8.5-10.5); Carbon Dioxide 23 mmol/L (22-29); Chloride 109 mmol/L (98-107); Globulin 2.6 g/dL (1.3-4.6); Glomerular Filtration Rate 41.9 mL/min (90-130); Glucose 123 mg/dL (65-115); Lipase 54 U/L (13-60); Magnesium 1.7 mg/dL (1.7-2.3); NT Pro B Type Natriuretic Pept 365 pg/mL (0-125); Osmolality Calculated 288 mOsm/kg (285-295); Potassium 4.1 mmol/L (3.5-5.1); Sodium 140 mmol/L (136-145); Total Protein 6.4 g/dL (6.6-8.7)
[2019-11-08] MEDS: morphine 4 mg/mL SDV 1 mL IVP (03:25)
[2019-11-08 03:30] LABS: Alcohol Level < 10 mg/dL (0-10)
[2019-11-08 03:31] LABS: Total Bilirubin 15.1 mg/dL (0.15-1.2)
--- NOTE | 2019-11-08 04:10 | ECG_ITS ---
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 Measurements Intervals [place] Rate: 96 P: 101 MS: 169 QRS: 13 QRSD: 82 T: 5 QT: 354 QTc: 449 Interpretive Statements SINUS RHYTHM No previous ECG available for comparison Electronically Signed On 11-08-2019 14:27:00 CDT by Nikhil Cruz M.D. [email or web address]
--- NOTE | 2019-11-08 04:16 | CTR_ITS ---
PROCEDURE INFORMATION: Exam: CT Chest With Contrast Exam date and time: 11/08/2019 4:28 AM Age: 54 years old Clinical indication: Bloating; Abdominal pain; Generalized; Cough and shortness of breath; Chest pain; Type not specified; Additional info: Pain/shortness of breath TECHNIQUE: Imaging protocol: Computed tomography of the chest with intravenous contrast. Radiation optimization: All CT scans at this facility use at least one of these dose optimization techniques: automated exposure control; mA and/or kV adjustment per patient size (includes targeted exams where dose is matched to clinical indication); or iterative reconstruction. Contrast material: VISI; Contrast volume: 95 ml; Contrast route: INTRAVENOUS (IV); COMPARISON: CT abdomen pelvis w con* [id number] 09/30/2019 2:28 AM RADIATION DOSE METRICS: Total DLP (mGy-cm): 2767.79 FINDINGS: Lungs: Almost complete collapse of the right lung is seen due to huge right pleural effusion. Small area area of aerated lung is seen anteromedially. The left lung is unremarkable No consolidation. No masses. Pleural space: A massive right pleural effusion has developed since previous examination causing collapse of the most of the underlying right lung and shift of the mediastinum to the left. A trickle amount of left pleural effusion is present. Heart: Coronary artery calcifications are present. No cardiomegaly. No pericardial effusion. Aorta: Unremarkable. No aortic aneurysm. Lymph nodes: Unremarkable. No enlarged lymph nodes. Bones/joints: Unremarkable. No acute fracture. Soft tissues: Unremarkable. IMPRESSION: A new huge right pleural effusion with collapse of the underlying right lung and contralateral shift of the mediastinum is present. Trace left pleural effusion is seen. PROCEDURE INFORMATION: Exam: CT Abdomen And Pelvis With Contrast Exam date and time: 11/08/2019 4:28 AM Age: 54 years old Clinical indication: Bloating; Abdominal pain; Generalized; Cough and shortness of breath; Chest pain; Type not specified; Additional info: Pain/shortness of breath TECHNIQUE: Imaging protocol: Computed tomography of the abdomen and pelvis with intravenous contrast. Radiation optimization: All CT scans at this facility use at least one of these dose optimization techniques: automated exposure control; mA and/or kV adjustment per patient size (includes targeted exams where dose is matched to clinical indication); or iterative reconstruction. Contrast material: VISI; Contrast volume: 95 ml; Contrast route: INTRAVENOUS (IV); COMPARISON: CT abdomen pelvis w con* [id number] 09/30/2019 2:28 AM RADIATION DOSE METRICS: Total DLP (mGy-cm): 2767.79 FINDINGS: Liver: Shows shrinking of the size from the previous examination with interval improvement in the low-attenuation fatty change. The features suggest rapidly progressing cirrhosis. No mass. Gallbladder and bile ducts: The gallbladder is distended with biliary sludge versus small stones. No ductal dilation. Pancreas: Normal. No ductal dilation. Spleen: The spleen is enlarged measuring 16.9 cm in length the splenic vein is prominent with few varices identified. These are new findings since previous examination. Adrenals: Normal. No mass. Kidneys and ureters: Normal. No hydronephrosis. Stomach and bowel: Unremarkable. No obstruction. No mucosal thickening. Appendix: No evidence of appendicitis. Intraperitoneal space: Unremarkable. No free air. Small amount of ascites is seen around the liver and in the pelvis. Vasculature: Unremarkable. No abdominal aortic aneurysm. Lymph nodes: Unremarkable. No enlarged lymph nodes. Bladder: Unremarkable as visualized. Reproductive: Unremarkable as visualized. Bones/joints: Degenerative changes are present. No acute fracture. Soft tissues: Mild generalized anasarca are new since previous examination. CT/CT chest abd pel w con* IMPRESSION: Findings in the liver, spleen and small amount of ascites suggest rapidly progressing cirrhosis of the liver. Radiation Dose CTDIVOL = (mGy): DLP = 2767.79~2767.79 (mGy-cm)
[2019-11-08] MEDS: piperacillin-tazobactam 3.375 GM in sodium chloride 0.9% (plus) 50 ML IV (04:26)
[2019-11-08] MEDS: cefTRIAXone 1,000 MG in sodium chloride 0.9% (plus) 50 ML 100 MG IV (04:26)
[2019-11-08] MEDS: HYDROmorphone 1 mg/mL INJ 1 mL 0.5 MG IVP ×2 (04:27→05:27)
[2019-11-08] MEDS: iodixanol 320 mg/mL 100mL Btl IV (04:40)
[2019-11-08 04:49] LABS: Troponin 5 2HR 14.11 ng/L (0-15)
[2019-11-08 04:52] LABS: Troponin 5 2HR Delta -1.89 ABS# (0-10)
--- NOTE | 2019-11-08 08:25 | PM.ACPR ---
Procedure/Consent Time out: Time Out Performed: Yes Consent: Consent for Procedure: Consent obtained from patient Procedure Narrative: Name of the procedure: Right thoracentesis. 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 IV pain medication: None. Description of the procedure: The procedure was explained to the patient in detail including the risks and a consent was obtained. The right hemithorax was scanned with ultrasound to find a safe fluid pocket. Large free-flowing fluid was noted. There was positive plankton sign Following identification of the fluid pocket the site was marked. The site was cleaned using sterile technique. Lidocaine 1% was injected into the skin and the subcutaneous tissue. Subsequently, the periosteum in the parietal pleural was also anesthetized using lidocaine. The pleural space was entered in the posterior axillary line in the right eighth intercostal space. Bloody fluid was aspirated. 2 L of fluid was aspirated. Sample: The pleural fluid was sent for cell count and differential, pH, protein, LDH, albumin, Gram stain and culture, fungal stain and culture, AFB stain and culture and cytology. Complication: None Acute Procedures Epistaxis Control: Time out performed: Yes
[2019-11-08 08:51] LABS: Apprearance, Body Fluid BLOODY (CLEAR); Body Fluid WBC 582 /uL; Color, Body Fluid RED (PALE YELLOW)
[2019-11-08 08:52] LABS: RBC, Body Fluid 774 10^3/uL (0-0)
[2019-11-08 09:35] LABS: LDH Pleural Fluid 147 U/L
[2019-11-08 09:44] LABS: Hematocrit 8.2 % (42.0-52.0)
[2019-11-08 13:20] LABS: Body Fluid Polynuclear #Cells 0.114 10^3/uL; Monocytes # Body Fluid 0.005 10^3/uL; PATH Referral YES
== END 2019-11-08 07:30 | disposition short-term general hospital (02) ==
PROVIDERS: Internal Medicine Critical Care Medicine; Emergency Provider Emergency Medicine
DX: J90 Pleural effusion, not elsewhere classified (principal); K70.11 Alcoholic hepatitis with ascites; F17.210 Nicotine dependence, cigarettes, uncomplicated
CPT/HCPCS: 12345; 36600; 71045; 71260; 74177; 80051; 80053; 80307; 80500; 82140; 82810; 82945; 83605; 83615; 83690; 83735; 83880; 83986; 84484; 85014; 85025; 85610; 85730; 87015; 87040; 87070; 87075; 87116; 87205; 87206; 87426; 87801; 88112; 88305; 89050; 93005; 93010; 94640; 96365; 96366; 96367; 96375; 96376; 99283; 99284; J0696; J1170; J2270; J2543; J7611; Q9967

== ENCOUNTER → 2020-01-10 13:25 | Outpatient (BNVA) | payer OTHER, MEDICARE, SELFPAY | PROVIDERS: Visit Provider Internal Medicine Pulmonary Disease | DX: Z11.59 Encounter for screening for other viral diseases (principal) | CPT/HCPCS: 87635 ==

== ENCOUNTER 2020-01-14 11:09 | Outpatient (CLI) | payer OTHER, MEDICARE, SELFPAY ==
--- NOTE | 2020-01-14 12:56 | PFTS_ITS ---
Date of Study:01/14/20 Date of Dictation: 01/16/2020 MECHANICS: Forced vital capacity (FVC) is normal Forced expiratory volume in one second (FEV1) is normal FEV1/FVC is reduced significant response to bronchodilator FLOW VOLUME LOOP: scooping of expiratory limb suggestive of small airway obstruction . LUNG VOLUMES: Total lung capacity (TLC) is normal . Residual volume (RV) is Increased. DIFFUSING CAPACITY FOR CARBON MONOXIDE: Mildly reduced . INTERPRETATION: Mild reduction of FEV1 which got corrected postbronchodilator. Rest of the pulmonary function tests are consistent with obstructive ventilatory disease with mild reduction in gas transfer. Correlate clinically MTDD
== END 2020-01-14 11:10 | disposition home or self-care (01) ==
PROVIDERS: PCP Family Medicine; Visit Provider Internal Medicine Pulmonary Disease
DX: J45.909 Unspecified asthma, uncomplicated (principal)
CPT/HCPCS: 94060; 94726; 94729; J7611

== ENCOUNTER 2020-02-04 21:40 | Emergency (ER) | payer OTHER, MEDICARE, SELFPAY ==
[2020-02-04 21:56] VITALS: BP 134/88; PULSE 106; RESP 16; TEMP 36.9; O2SAT 99; BMI 25.7
--- NOTE | 2020-02-04 22:32 | ED_ITS ---
HPI - Male Genitourinary General: Chief complaint: Urogenital-Male Stated complaint: urogenital issues/got shot yesterday Time Seen by Provider: 02/04/20 22:24 Source: patient Mode of arrival: ambulatory Limitations: no limitations History of Present Illness: HPI Narrative: Mr. Noonan is a 54-year-old male who comes in complaining about swelling to his penis. The pain is was evaluated by a urologist Dr. Zamora out of [place] today and had an injection performed to evaluate for Peyronie's disease. Patient states that the erection is subsided but tonight he noticed significant swelling and bruising to his penis. The area is sore and because of this he was concerned and has presented here to the hospital for evaluation. He states it is just sore he has not tried to urinate since. He denies any fever, chills or discharge. Associated symptoms: Deny nausea or vomiting Review of Systems Const: Denies: fever(s), chills, body aches, fatigue, malaise or diaphoresis Eyes: Denies: change in vision, blurry vision, photophobia, eye discomfort, eye discharge, eye redness or yellow eyes ENMT: Denies: throat pain, odynophagia, hoarseness, swelling of lips/tongue, ear or mastoid pain, ear discharge, change in hearing or nasal discharge Card: Denies: chest pain, palpitations, irregular heart rhythm, edema, lightheadedness, syncope, pre-syncope, dyspnea on exertion or orthopnea Resp: Denies: dyspnea, productive cough, non-productive cough, wheezing, hemoptysis or chest congestion GI: Denies: abdominal pain, nausea, vomiting, hematemesis, coffee ground emesis, heartburn, diarrhea, constipation, GI cramping, hematochezia or melena : Reports: other (See HPI) Musc: Denies: neck pain, back pain, extremity pain, extremity swelling, joint pain, joint swelling, joint redness, joint warmth or joint stiffness Skin/Breast: Denies: rash, pruritus, erythema, skin pain or skin tenderness Neuro: Denies: headache(s), numbness in extremities, weakness in extremities, sensory changes, lack of coordination, difficulty walking, dizziness, vertigo, confusion, Slurred speech present or seizure-like activity Octavio/Lymph: Denies: easy bruising, easy bleeding, petechiae, purpura or enlarged lymph nodes All/Imm: Denies: urticaria, throat swelling, tongue swelling, facial swelling or acute wheezing PFSH ED PFSH: Medical History (Updated 02/04/20 @ 23:45 by Tiara Gongora) Alcohol abuse Bronchitis Colon polyps COPD (chronic obstructive pulmonary disease) Diverticulosis Pansinusitis Surgical History H/O hernia repair H/O right knee surgery Family History Other Hyperlipidemia Hypertension Denies family history of Cancer Social History Smoking and tobacco status: current some day smoker smokeless tobacco Alcohol intake: current Alcohol type: beer Desire information about alcohol rehabilitation?: Yes Counseling given: Yes Lives independently: Yes Housing: House Marital status details: has left him about 2 months ago, Course Vital Signs: Vital signs: Vital Signs Temperature 98.5 F 02/04/20 21:56 Pulse Rate 106 H 02/04/20 21:56 Respiratory Rate 16 02/04/20 21:56 Blood Pressure 134/88 02/04/20 21:56 Pulse Oximetry 99 02/04/20 21:56 MDM - Male MDM Narrative: Medical decision making narrative: Mr. Noonan is a nice 54-year-old male who comes in complaining of bruising and swelling to his penis after he had his penis injected to evaluate for Peyronie's disease. Patient is able to urinate easily and has no retained urine. There are no history upon repeated questioning of any type of penile fracture. Believe the patient just has a slightly curved penis after his Peyronie's disease and the swelling and contusion are likely from hitting a blood vessel with the procedure. I did review the entire case with Dr. Larios he agrees this is the likely cause. The patient can follow-up with his urologist or return here if he worsens at all. I reviewed all this with the patient he understands these instructions. He agrees to return should his symptoms change or worsen. Lab Data: Attestation: I reviewed the patient's lab results. Labs: Lab Results 02/04/20 02/04/20 02/04/20 Range/Units 22:31 22:31 22:31 WBC 5.0 (4.0-10.0) 10^3/ uL RBC 3.41 L (4.1-5.3) 10^6/u L Hgb 10.9 L (11.7-16.6) g/dL Hct 32.4 L (42.0-52.0) % MCV 95.0 H (80-94) fL MCH 32.0 (28.0-34.0) pg MCHC 33.6 (30.0-36.0) g/dL RDW 14.7 (12.1-15.1) % Plt Count 80 L (130-400) 10^3/c mm MPV 9.0 (7.4-10.4) fL Neut % (Auto) 62.5 % Lymph % (Auto) 24.2 % [place] % (Auto) 9.5 % Eos % (Auto) 2.6 % Baso % (Auto) 1.0 % Neut # (Auto) 3.10 (1.8-7.7) 10^3/u L Lymph # (Auto) 1.2 (0.8-4.8) 10^3/u L [place] # (Auto) 0.5 (0.2-0.9) 10^3/u L Eos # (Auto) 0.1 (0.0-0.8) 10^3/u L Baso # (Auto) 0.1 (0.0-0.1) 10^3/u L Nucleated RBC % (a uto) 0 % Nucleated RBCs # 0.0 /100WBC PT 15.60 H (12.1-14.9) SECO NDS INR 1.20 (0.8-1.2) APTT 35.1 (23.9-36.7) SECO NDS Sodium 141 (136-145) mmol/L Potassium 3.9 (3.5-5.1) mmol/L Chloride 107 (98-107) mmol/L Carbon Dioxide 24 (22-29) mmol/L Anion Gap 13.9 (5-19) BUN 12 (6-20) mg/dL Creatinine 2.2 H (0.7-1.2) mg/dL GFR Calculation 31.1 L (90-130) mL/min Glucose 112 (65-115) mg/dL Calculated Osmolal ity 293 (285-295) mOsm/k g Calcium 9.5 (8.5-10.5) mg/dL Total Bilirubin 1.1 (0.15-1.2) mg/dL AST 38 (0-40) U/L ALT 25 (0-41) U/L Alkaline Phosphata se 132 H (40-130) IU/L Total Protein 6.7 (6.6-8.7) g/dL Albumin 3.8 (3.5-5.2) g/dL Globulin 2.9 (1.3-4.6) g/dL Urine Color (Yellow) Urine Appearance (CLEAR) Urine pH (5-7) Ur Specific Gravit y (1.005-1.030) Urine Protein (Negative) Urine Glucose (UA) (Normal) Urine Ketones (Negative) Urine Blood (Negative) Urine Nitrate (Negative) Urine Bilirubin (Negative) Urine Urobilinogen (Negative) mg/dL Ur Leukocyte Kalyn ase (Negative) 02/04/20 Range/Units 23:00 WBC (4.0-10.0) 10^3/ uL RBC (4.1-5.3) 10^6/u L Hgb (11.7-16.6) g/dL Hct (42.0-52.0) % MCV (80-94) fL MCH (28.0-34.0) pg MCHC (30.0-36.0) g/dL RDW (12.1-15.1) % Plt Count (130-400) 10^3/c mm MPV (7.4-10.4) fL Neut % (Auto) % Lymph % (Auto) % [place] % (Auto) % Eos % (Auto) % Baso % (Auto) % Neut # (Auto) (1.8-7.7) 10^3/u L Lymph # (Auto) (0.8-4.8) 10^3/u L [place] # (Auto) (0.2-0.9) 10^3/u L Eos # (Auto) (0.0-0.8) 10^3/u L Baso # (Auto) (0.0-0.1) 10^3/u L Nucleated RBC % (a uto) % Nucleated RBCs # /100WBC PT (12.1-14.9) SECO NDS INR (0.8-1.2) APTT (23.9-36.7) SECO NDS Sodium (136-145) mmol/L Potassium (3.5-5.1) mmol/L Chloride (98-107) mmol/L Carbon Dioxide (22-29) mmol/L Anion Gap (5-19) BUN (6-20) mg/dL Creatinine (0.7-1.2) mg/dL GFR Calculation (90-130) mL/min Glucose (65-115) mg/dL Calculated Osmolal ity (285-295) mOsm/k g Calcium (8.5-10.5) mg/dL Total Bilirubin (0.15-1.2) mg/dL AST (0-40) U/L ALT (0-41) U/L Alkaline Phosphata se (40-130) IU/L Total Protein (6.6-8.7) g/dL Albumin (3.5-5.2) g/dL Globulin (1.3-4.6) g/dL Urine Color Yellow (Yellow) Urine Appearance Clear (CLEAR) Urine pH 6.5 (5-7) Ur Specific Gravit y 1.015 (1.005-1.030) Urine Protein Neg (Negative) Urine Glucose (UA) Norm (Normal) Urine Ketones Negative (Negative) Urine Blood Neg (Negative) Urine Nitrate Negative (Negative) Urine Bilirubin Neg (Negative) Urine Urobilinogen Norm (Negative) mg/dL Ur Leukocyte Kalyn ase Negative (Negative) Discharge Plan Discharge Patient Disposition: Home Clinical Impression: Contusion of penis, initial encounter Chronic renal insufficiency Qualifiers: Chronic kidney disease stage: unspecified stage Qualified Code(s): N18.9 - Chronic kidney disease, unspecified Condition: Stable Prescriptions: No Action omeprazole 20 mg Tablet,Delayed Release (Dr/Ec) 20 mg PO DAILY RF: 0 Anti-Depressant RF: 0 Discharge Orders: Discharge Order (Routine); Ordered 02/04/20 Ordered By: Tiara Gongora Referrals: Troy Larios MD [Physician] - 1-3 days Og Bal [Primary Care Provider] - 1-3 days Discharge Diet: Advance as tolerated Discharge Activity: Increase activity as tolerated Patient Instructions: Contusion in Adults (ED) Activity Restrictions/Additional Instructions: Please return to the ER immediately for any of the signs or symptoms listed on your discharge instruction sheets, worsening/changing of your symptoms, you are not getting better as quickly as expected, or for ANY other cause or concerns. Be certain to call your urologist Dr. Zamora tomorrow to speak with him about what has happened after your procedure. Return here to the ER for increased swelling, increased bruising, pain, you cannot urinate, or for any other cause for concern. Coding Level of Care Code ED Technical Support Coordinator for Caleb Zhong
[2020-02-04 22:55] LABS: Basophils # 0.1 10^3/uL (0.0-0.1); Eosinophils # 0.1 10^3/uL (0.0-0.8); Eosinophils % 2.6 %; Hematocrit 32.4 % (42.0-52.0); Hemoglobin 10.9 g/dL (11.7-16.6); Lymphocytes # 1.2 10^3/uL (0.8-4.8); Lymphocytes % 24.2 %; Mean Corpuscular HGB Conc 33.6 g/dL (30.0-36.0); Monocytes # 0.5 10^3/uL (0.2-0.9); Monocytes % 9.5 %; Neutrophils % 62.5 %; Nucleated Red Blood Cells % 0 %; Platelet Count 80 10^3/cmm (130-400); Red Blood Count 3.41 10^6/uL (4.1-5.3); Red Cell Distribution Width 14.7 % (12.1-15.1)
[2020-02-04 23:06] LABS: Add Urine Microscopic? NO
[2020-02-04 23:16] LABS: Alanine Aminotransferase 25 U/L (0-41); Albumin Level 3.8 g/dL (3.5-5.2); Alkaline Phosphatase 132 IU/L (40-130); Anion Gap 13.9 (5-19); Aspartate Amino Transferase 38 U/L (0-40); Blood Urea Nitrogen 12 mg/dL (6-20); Calcium 9.5 mg/dL (8.5-10.5); Carbon Dioxide 24 mmol/L (22-29); Chloride 107 mmol/L (98-107); Creatinine Clr Calc Pharmacy 45.3978; Globulin 2.9 g/dL (1.3-4.6); Glomerular Filtration Rate 31.1 mL/min (90-130); Glucose 112 mg/dL (65-115); Osmolality Calculated 293 mOsm/kg (285-295); Potassium 3.9 mmol/L (3.5-5.1); Sodium 141 mmol/L (136-145); Total Bilirubin 1.1 mg/dL (0.15-1.2); Total Protein 6.7 g/dL (6.6-8.7)
[2020-02-04 23:27] LABS: Bilirubin Urine Neg (Negative); Blood Urine Neg (Negative); Glucose Urine UA Norm (Normal); Ketones Urine Negative (Negative); Leukocyte Esterase Urine Negative (Negative); Nitrate Urine Negative (Negative); Protein Urine Neg (Negative); Specific Gravity, Urine 1.015 (1.005-1.030); Urine Appearance Clear (CLEAR); Urine Color Yellow (Yellow); Urobilinogen Urine Norm (Negative); pH Urine 6.5 (5-7)
[2020-02-04 23:32] LABS: Partial Thromboplastin Time 35.1 SECONDS (23.9-36.7)
[2020-02-05 00:08] VITALS: BP 134/76; PULSE 87; RESP 16; O2SAT 98
== END 2020-02-05 00:17 | disposition home or self-care (01) ==
PROVIDERS: Emergency Provider Emergency Medicine; PCP Family Medicine
DX: S30.21XA Contusion of penis, initial encounter (principal); N18.9 Chronic kidney disease, unspecified; J44.9 Chronic obstructive pulmonary disease, unspecified; F17.210 Nicotine dependence, cigarettes, uncomplicated; W26.8XXA Contact with other sharp object(s), not elsewhere classified, initial encounter
CPT/HCPCS: 12345; 80053; 81003; 85025; 85610; 85730; 99281; 99282

== ENCOUNTER → 2020-09-29 13:51 | Outpatient (BNVA) | payer OTHER, SELFPAY | PROVIDERS: PCP Family Medicine; Visit Provider Internal Medicine Pulmonary Disease | DX: J44.9 Chronic obstructive pulmonary disease, unspecified (principal); K76.9 Liver disease, unspecified; J91.8 Pleural effusion in other conditions classified elsewhere; K70.31 Alcoholic cirrhosis of liver with ascites; R06.02 Shortness of breath; E80.6 Other disorders of bilirubin metabolism | CPT/HCPCS: 82785; 85025; 86003 ==

== ENCOUNTER 2020-10-14 06:00 | Outpatient (RCR) | payer OTHER, SELFPAY | END 2020-10-24 23:59 | disposition home or self-care (01) | LOC: APT 06:00 | PROVIDERS: PCP Family Medicine; Referring Provider Physician Assistant; Visit Provider Physician Assistant | DX: Z47.1 Aftercare following joint replacement surgery (principal); Z96.611 Presence of right artificial shoulder joint | CPT/HCPCS: 97161 ==

== ENCOUNTER → 2020-10-26 11:39 | Outpatient (BNVA) | payer OTHER, SELFPAY | PROVIDERS: PCP Family Medicine; Visit Provider Nurse Practitioner Family | DX: Z20.822 Contact with and (suspected) exposure to COVID-19 (principal) | CPT/HCPCS: 87635 ==

== ENCOUNTER 2021-01-06 06:00 | Outpatient (RCR) | payer OTHER, SELFPAY | END 2021-01-24 23:59 | disposition home or self-care (01) | LOC: APT 06:00 | PROVIDERS: PCP Family Medicine; Referring Provider Orthopaedic Surgery; Visit Provider Orthopaedic Surgery | DX: Z96.611 Presence of right artificial shoulder joint (principal) | CPT/HCPCS: 97110; 97162 ==

== ENCOUNTER → 2021-01-12 07:36 | Outpatient (BNVA) | payer OTHER, SELFPAY | PROVIDERS: PCP Family Medicine; Visit Provider Urology | DX: N48.6 Induration penis plastica (principal) | CPT/HCPCS: 81003 ==